=== PATIENT | male | born 1950 | race Caucasian/White ===

== ENCOUNTER 2018-08-27 12:30 | Inpatient (IN) | payer OTHER ==
[~2018-08-27] VITALS: Ht 188 cm; Wt 140.6 kg
[~2018-08-27 12:30] MED LIST: FURO40TA4 PO; POTA10TA12 PO; TAMS0.4C97 PO
[2018-08-27 13:44] LABS: BASO % 0 % (0-3); EOS # 0.1 x10^3/uL (0.0-0.7); EOS % 1 % (0-3); HEMATOCRIT 39.2 % (39.0-53.0); HEMOGLOBIN 12.8 g/dL (13.0-17.5); LYMPH # 1.9 x10^3/uL (1.0-4.8); LYMPH % 16 % (24-48); MEAN CORPUSCULAR HEMOGLOBIN 30 pg (25-35); MEAN CORPUSCULAR HGB CONC 33 g/dL (31-37); MEAN CORPUSCULAR VOLUME 93 fL (79-100); MONO # 1.2 x10^3/uL (0.0-1.1); MONO % 10 % (0-9); NEUT # 8.4 x10^3uL (1.8-7.7); NEUT % 73 % (31-73); PLATELET COUNT 201 x10^3/uL (140-400); RED BLOOD COUNT 4.22 x10^6/uL (4.30-5.70); RED CELL DISTRIBUTION WIDTH 13.6 % (11.5-14.5); WHITE BLOOD COUNT 11.5 x10^3/uL (4.0-11.0)
[2018-08-27] MEDS ORDERED: CALCIUM CARBONATE 500 MG TAB.CHEW PO PRN (13:45)
[2018-08-27] MEDS ORDERED: ZOLPIDEM 5 MG TABLET. PO PRN (13:45)
[2018-08-27] MEDS ORDERED: KETOROLAC 15 MG/ML VIAL. IV PRN (13:45)
[2018-08-27] MEDS ORDERED: ACETAMINOPHEN 325 MG TABLET. PO PRN (13:45)
[2018-08-27] MEDS ORDERED: MORPHINE SULFATE 2 MG/ML VIAL. IV PRN (13:45)
[2018-08-27] MEDS ORDERED: PROCHLORPERAZINE 10 MG/2 ML VIAL. IV PRN (13:45)
[2018-08-27] MEDS ORDERED: MAGNESIUM HYDROXIDE 2,400 MG/30 ML ORAL.SUSP. PO PRN (13:45)
[2018-08-27] MEDS ORDERED: oxyCODONE IR 5 MG TABLET PO PRN (13:45)
[2018-08-27] MEDS ORDERED: ONDANSETRON PF 4 MG/2 ML VIAL. IV PRN (13:45)
[2018-08-27] MEDS ORDERED: POTASSIUM CHLORIDE 10 MEQ TABLET.ER. PO PRN (13:45)
[2018-08-27] MEDS ORDERED: FUROSEMIDE 40 MG TABLET. PO PRN (13:45)
[2018-08-27] MEDS ORDERED: MAG HYDROX/ALUMINUM HYD/SIMETH 30 ML ORAL.SUSP PO PRN (13:45)
[2018-08-27] MEDS ORDERED: BISACODYL 10 MG SUPP.RECT. PR PRN (13:45)
--- NOTE | 2018-08-27 13:45 | RAD ---
FOOT BILAT 3V History: infected wound since April. Right foot Joint spaces are intact as is alignment. No evidence of aggressive bone destruction. No evidence of acute fracture. Calcaneal enthesophytes are noted. There is severe dorsal soft tissue swelling. Mild bone hypertrophy adjacent to the tuberosity of the proximal fifth metatarsal. Left foot Mild degenerative changes are seen. There is a small amount of bone are calcified density medial to the middle phalanx of the third phalanx, could be hypertrophic or due to old injury. There is some bone hypertrophy at the proximal fifth metatarsal tuberosity. Severe soft tissue swelling at the dorsal aspect of the left foot. Calcaneal enthesophytes are noted. IMPRESSION: Severe soft tissue swelling at the dorsal feet, nonspecific but could be due to cellulitis, abscess or hemorrhage. Electronically signed by: Clay Ramirez MD (08/27/2018 1:43 PM) [facility]
[2018-08-27 13:52] LABS: PROTHROMBIN TIME PATIENT 14.6 SEC (11.7-14.0)
[2018-08-27 13:55] LABS: BILIRUBIN,URINE SMALL (NEG); CLARITY,URINE CLEAR; COLOR,URINE AMBER; NITRITE,URINE NEGATIVE (NEG); PH,URINE 5.5; PROTEIN,URINE NEGATIVE (NEG-TRACE); UROBILINOGEN,URINE 0.2 mg/dL (0.2 mg/dL)
[2018-08-27] MEDS ORDERED: PROCHLORPERAZINE 25 MG SUPP.RECT. PR PRN (14:00)
--- NOTE | 2018-08-27 14:02 | PHYS DOC ---
Past Medical History Past Medical History: Other Additional Past Medical Histor: chronic BLE swelling, chronic back pain Past Surgical History: Other Additional Past Surgical Histo: left great toenail removed Additional Information: 2 ppd Alcohol Use: None Drug Use: None Adult General Chief Complaint Chief Complaint: Foot problem [facility] HPI Patient is a 68 year old male who presents with problem. Patient has had diagnosis of lymphedema in bilateral lower extremities and had bilateral feet infection since April 2018. Patient was seen at wound care clinic for the last 2 weeks and sent from wound care today because of pus drainage of fluid and increasing erythema and edema with concern for cellulitis or abscess. Patient does not have history of diabetes and denies fever and chills, new focal neuro deficit, shortness of breath. Patient has had history of chronic back spasm without new changes. Review of Systems Review of Systems Constitutional: Denies fever or chills [] Eyes: Denies change in visual acuity, redness, or eye pain [] HENT: Denies nasal congestion or sore throat [] Respiratory: Denies cough or shortness of breath [] Cardiovascular: No additional information not addressed in HPI [] GI: Denies abdominal pain, nausea, vomiting, bloody stools or diarrhea [] : Denies dysuria or hematuria [] Musculoskeletal: Reports back pain, joint pain [] Integument: Denies rash, reports skin lesions [] Neurologic: Denies headache, focal weakness or sensory changes [] Endocrine: Denies polyuria or polydipsia [] All other systems were reviewed and found to be within normal limits, except as documented in this note. Current Medications Current Medications Allergies Allergies Allergies Coded Allergies Type Severity Reaction Last Updated Verified No Known Drug Allergies 04/17/18 No Physical Exam Physical Exam Constitutional: Well developed, well nourished, mild distress, non-toxic appearance. [] HENT: Normocephalic, atraumatic Eyes: PERRLA, EOMI, conjunctiva normal, no discharge. [] Neck: Normal range of motion, no tenderness, supple, no stridor. [] Cardiovascular:Heart rate regular rhythm, no murmur [] Lungs & Thorax: Bilateral breath sounds clear to auscultation [] Skin: Warm, dry. Back: No tenderness, no CVA tenderness. [] Extremities: Bilateral lower extremity 4+ edema, bilateral foot erythema more in left side with mild yellow discharge painful range of motion, no sign of abscess Neurologic: Alert and oriented X 3, no focal deficits noted. [] Psychologic: Affect normal, judgement normal, mood normal. [] Current Patient Data Vital Signs Vital Signs Date Time Temp Pulse Resp B/P (MAP) Pulse Ox O2 Delivery O2 Flow Rate FiO2 08/27/18 13:00 77 16 141/48 (79) 98 Room Air 08/27/18 12:46 98.4 98.4 Lab Values Laboratory Tests Test 08/27/18 13:10 08/27/18 13:20 Urine Color Chelsie Urine Clarity Clear Urine pH 5.5 Urine Specific [place] 1.025 Urine Protein Negative mg/dL (NEG-TRACE) Urine Glucose (UA) Negative mg/dL (NEG) Urine Ketones (Stick) Trace mg/dL (NEG) Urine Blood Negative (NEG) Urine Nitrite Negative (NEG) Urine Bilirubin Small (NEG) Urine Urobilinogen Dipstick 0.2 mg/dL (0.2 mg/dL) Urine Leukocyte Esterase Negative (NEG) Urine RBC Rare /HPF (0-2) Urine WBC Occ /HPF (0-4) Urine Squamous Epithelial Cells Occ /LPF Urine Bacteria 0 /HPF (0-FEW) Urine Mucus Mod /LPF White Blood Count 11.5 x10^3/uL (4.0-11.0) H Red Blood Count 4.22 x10^6/uL (4.30-5.70) L Hemoglobin 12.8 g/dL (13.0-17.5) L Hematocrit 39.2 % (39.0-53.0) Mean Corpuscular Volume 93 fL (79-100) Mean Corpuscular Hemoglobin 30 pg (25-35) Mean Corpuscular Hemoglobin Concent 33 g/dL (31-37) Red Cell Distribution Width 13.6 % (11.5-14.5) Platelet Count 201 x10^3/uL (140-400) Neutrophils (%) (Auto) 73 % (31-73) Lymphocytes (%) (Auto) 16 % (24-48) L Monocytes (%) (Auto) 10 % (0-9) H Eosinophils (%) (Auto) 1 % (0-3) Basophils (%) (Auto) 0 % (0-3) Neutrophils # (Auto) 8.4 x10^3uL (1.8-7.7) H Lymphocytes # (Auto) 1.9 x10^3/uL (1.0-4.8) Monocytes # (Auto) 1.2 x10^3/uL (0.0-1.1) H Eosinophils # (Auto) 0.1 x10^3/uL (0.0-0.7) Basophils # (Auto) 0.0 x10^3/uL (0.0-0.2) Erythrocyte Sedimentation Rate 67 (0-15) H Prothrombin Time 14.6 SEC (11.7-14.0) H Prothrombin Time INR 1.2 (0.8-1.1) H PTT 30 SEC (24-38) Lactic Acid Level 1.2 mmol/L (0.4-2.0) Laboratory Tests 08/27/18 13:20 EKG EKG [] Radiology/Procedures Radiology/Procedures [facility] [address] [place] [address] IMAGING REPORT Signed PATIENT: TAYLOR ACOSTA ACCOUNT: [id number] : 1950 LOCATION: ER AGE: 68 SEX: M EXAM STATUS: REG ER ORD. PHYSICIAN: XIMENA TRIVEDI MD REASON: infected wound since April PROCEDURE: FOOT BILAT 3V FOOT BILAT 3V History: infected wound since April. Right foot Joint spaces are intact as is alignment. No evidence of aggressive bone destruction. No evidence of acute fracture. Calcaneal enthesophytes are noted. There is severe dorsal soft tissue swelling. Mild bone hypertrophy adjacent to the tuberosity of the proximal fifth metatarsal. Left foot Mild degenerative changes are seen. There is a small amount of bone are calcified density medial to the middle phalanx of the third phalanx, could be hypertrophic or due to old injury. There is some bone hypertrophy at the proximal fifth metatarsal tuberosity. Severe soft tissue swelling at the dorsal aspect of the left foot. Calcaneal enthesophytes are noted. IMPRESSION: Severe soft tissue swelling at the dorsal feet, nonspecific but could be due to cellulitis, abscess or hemorrhage. Electronically signed by: Clay Ramirez MD (08/27/2018 1:43 PM) [facility] DICTATED and SIGNED BY: CLAY RAMIREZ MD DATE: 08/27/18 1342 Course & Med Decision Making Course & Med Decision Making Pertinent Labs and Imaging studies reviewed. (See chart for details) Evaluation of patient in ER showed 68-year-old male patient with history of chronic lymphedema and bilateral feet erythema sent from wound clinic with worsening of bilateral foot cellulitis. Patient was afebrile and did not have hypotension or tachycardia. Patient had bilateral feet cellulitis. Patient requiring admission for further evaluation and treatment. Discussed with Dr. Rogers who is in agreement with admission. Discussed findings and plan with patient and family, who acknowledge understanding and agreement. Dragon Disclaimer Dragon Disclaimer This electronic medical record was generated, in whole or in part, using a voice recognition dictation system. Departure Departure Impression: Primary Impression: Bilateral lower leg cellulitis Additional Impression: Lymphedema of extremity Disposition: ADMITTED INPATIENT (at 1334) Admitting Physician: Luly Rogers (accepted admission at 1333) Condition: STABLE Referrals: CICI SAENZ MD (PCP) Problem Qualifiers XIMENA TRIVEDI MD Aug 27, 2018 14:01
--- NOTE | 2018-08-27 14:11 | PDOC1 ---
History and Physical Date of Admission Date of Admission DATE: 08/27/18 TIME: 14:06 Identification/Chief Complaint Chief Complaint leg wounds Source Source: Caregiver, Chart review, Patient History of Present Illness History of Present Illness 68, white male, chronic lymphedema, no diabetes but has signif neuropathy. Home meds including Lasix, KCl and Flomax and pain medicine. Follows with wound care for the past 2 weeks. History of leg wounds in April. Worsening edema. Weeping, red, some bloody drainage? NOfevers at home, HAs a wheel chair with seat, Cant get comfortable at ER PCP Dr. Blankenship. Labs are still pending. Needing IV antibiotics wound care and ID on board. X-rays show severe swelling and cellulitis but could not rule out hemorrhage or abscess. Labs are still pending including a sedimentation rate Past Medical History Cardiovascular: No pertinent hx Pulmonary: No pertinent hx GI: Constipation Heme/Onc: No pertinent hx Hepatobiliary: No pertinent hx Psych: No pertinent hx Musculoskeletal: low back pain Rheumatologic: No pertinent hx Infectious disease: No pertinent hx Renal/: No pertinent hx Endocrine: No pertinent hx Past Surgical History Past Surgical History: No pertinent history Family History Family History: High Cholestrol, Hypertension Social History Smoke: No ALCOHOL: rare Drugs: None Current Problem List Problem List Problems Medical Problems: (1) Bilateral lower leg cellulitis Status: Acute (2) Lymphedema of extremity Status: Acute Current Medications Current Medications Current Medications Ondansetron HCl (Zofran) 4 mg PRN Q6HRS PRN IV NAUSEA/VOMITING; Start 08/27/18 at 13:45 Prochlorperazine Edisylate (Compazine) 10 mg PRN Q6HRS PRN IV NAUSEA/VOMITING (2nd Choice); Start 08/27/18 at 13:45 Prochlorperazine (Compazine) 25 mg PRN Q12HR PRN [place] NAUSEA/VOMITING; Start 08/27/18 at 13:45; Status UNV Al Hydroxide/Mg Hydroxide (Mylanta Plus Xs) 30 ml PRN Q3HRS PRN PO HEARTBURN / GAS; Start 08/27/18 at 13:45 Calcium Carbonate/ Glycine (Tums) 500 mg PRN Q3HRS PRN PO UPSET STOMACH; Start 08/27/18 at 13:45 Zolpidem Tartrate (Ambien) 5 mg PRN QHS PRN PO INSOMNIA, MAY REPEAT IN 1HR; Start 08/27/18 at 13:45 Oxycodone HCl (Roxicodone) 5 mg PRN Q3HRS PRN PO BREAKTHROUGH PAIN; Start 08/27/18 at 13:45 Morphine Sulfate (Morphine Sulfate) 2 mg PRN Q2HR PRN IV PAIN; Start 08/27/18 at 13:45 Ketorolac Tromethamine (Toradol 15mg Vial) 15 mg PRN Q6HRS PRN IV PAIN; Start 08/27/18 at 13:45; Stop 09/01/18 at 13:44; Status UNV Acetaminophen (Tylenol) 650 mg PRN Q6HRS PRN PO Headaches, Temp > 101.5F; Start 08/27/18 at 13:45 Magnesium Hydroxide (Milk Of Magnesia) 2,400 mg PRN Q12HR PRN PO CONSTIPATION; Start 08/27/18 at 13:45 Bisacodyl (Dulcolax Supp) 10 mg PRN DAILY PRN [place] CONSTIPATION; Start 08/27/18 at 13:45 Furosemide (Lasix) 40 mg PRN DAILY PRN PO SWELLING; Start 08/27/18 at 13:45 Potassium Chloride (Klor-Con) 10 meq DAILY PRN PO take with furosemide; Start 08/27/18 at 13:45; Status UNV Tamsulosin HCl (Flomax) 0.4 mg QHS PO ; Start 08/27/18 at 21:00; Status UNV Non-Formulary Medication (Info (No Known Medications Prior To Admisstion)) 1 each DAILY MC ; Start 08/28/18 at 09:00; Status UNV Active Scripts Active Potassium Chloride 10 Meq Tab.sr.24h 10 Meq PO DAILY PRN 30 Days Furosemide 40 Mg Tablet 1 Tab PO DAILY PRN 30 Days Flomax (Tamsulosin Hcl) 0.4 Mg Cap.er.24h 0.4 Mg PO QHS 30 Days Reported No Known Medications Prior To Admisstion (Info) Each 1 Each MC DAILY Allergies Allergies: Coded Allergies: No Known Drug Allergies (Unverified , 04/17/18) ROS Review of System Legs hurt otherwise rest of ROS 14 point negative Physical Exam General: Alert, Oriented X3, Cooperative, Other (cannot find a comfortable position at the ER otherwise not in acute respiratory distress) HEENT: Atraumatic, PERRLA Lungs: Clear to auscultation, Normal air movement Heart: S1S2, RRR, no thrills, no rubs, no gallops, no murmurs Cardiovascular: S1, S2 Abdomen: Normal bowel sounds, Soft, No tenderness, No hepatosplenomegaly, No masses Male Genitals Exam: normal genitalia, normal prostate Rectal Exam: not examined Skin: Other (severe lower extremity tight pitting ,, red swollen, no open lesions though) Neuro: Normal gait, Normal speech, Strength at 5/5 X4 ext, Normal tone, Sensation intact, Cranial nerves 3-12 NL, Reflexes 2+ Psych/Mental Status: Mental status NL Vitals Vitals Vital Signs Date Time Temp Pulse Resp B/P (MAP) Pulse Ox O2 Delivery O2 Flow Rate FiO2 08/27/18 12:46 98.4 75 20 141/48 (79) 96 Room Air 98.4 Labs Labs Laboratory Tests Test 08/27/18 13:20 White Blood Count 11.5 x10^3/uL (4.0-11.0) Red Blood Count 4.22 x10^6/uL (4.30-5.70) Hemoglobin 12.8 g/dL (13.0-17.5) Hematocrit 39.2 % (39.0-53.0) Mean Corpuscular Volume 93 fL (79-100) Mean Corpuscular Hemoglobin 30 pg (25-35) Mean Corpuscular Hemoglobin Concent 33 g/dL (31-37) Red Cell Distribution Width 13.6 % (11.5-14.5) Platelet Count 201 x10^3/uL (140-400) Neutrophils (%) (Auto) 73 % (31-73) Lymphocytes (%) (Auto) 16 % (24-48) Monocytes (%) (Auto) 10 % (0-9) Eosinophils (%) (Auto) 1 % (0-3) Basophils (%) (Auto) 0 % (0-3) Neutrophils # (Auto) 8.4 x10^3uL (1.8-7.7) Lymphocytes # (Auto) 1.9 x10^3/uL (1.0-4.8) Monocytes # (Auto) 1.2 x10^3/uL (0.0-1.1) Eosinophils # (Auto) 0.1 x10^3/uL (0.0-0.7) Basophils # (Auto) 0.0 x10^3/uL (0.0-0.2) Prothrombin Time 14.6 SEC (11.7-14.0) Prothromb Time International Ratio 1.2 (0.8-1.1) Activated Partial Thromboplast Time 30 SEC (24-38) Lactic Acid Level 1.2 mmol/L (0.4-2.0) Laboratory Tests Test 08/27/18 13:20 White Blood Count 11.5 x10^3/uL (4.0-11.0) Red Blood Count 4.22 x10^6/uL (4.30-5.70) Hemoglobin 12.8 g/dL (13.0-17.5) Hematocrit 39.2 % (39.0-53.0) Mean Corpuscular Volume 93 fL (79-100) Mean Corpuscular Hemoglobin 30 pg (25-35) Mean Corpuscular Hemoglobin Concent 33 g/dL (31-37) Red Cell Distribution Width 13.6 % (11.5-14.5) Platelet Count 201 x10^3/uL (140-400) Neutrophils (%) (Auto) 73 % (31-73) Lymphocytes (%) (Auto) 16 % (24-48) Monocytes (%) (Auto) 10 % (0-9) Eosinophils (%) (Auto) 1 % (0-3) Basophils (%) (Auto) 0 % (0-3) Neutrophils # (Auto) 8.4 x10^3uL (1.8-7.7) Lymphocytes # (Auto) 1.9 x10^3/uL (1.0-4.8) Monocytes # (Auto) 1.2 x10^3/uL (0.0-1.1) Eosinophils # (Auto) 0.1 x10^3/uL (0.0-0.7) Basophils # (Auto) 0.0 x10^3/uL (0.0-0.2) Prothrombin Time 14.6 SEC (11.7-14.0) Prothromb Time International Ratio 1.2 (0.8-1.1) Activated Partial Thromboplast Time 30 SEC (24-38) Lactic Acid Level 1.2 mmol/L (0.4-2.0) VTE Prophylaxis Ordered VTE Prophylaxis Devices: Yes VTE Pharmacological Prophylaxi: Yes Assessment/Plan Assessment/Plan Severe bilateral lower extremity edema and wounds - tight edema, no open lesions-follows with wound care- Severe cellulitis both legs-rule out abscess hemorrhage or any drainable lesion 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
[2018-08-27] MEDS ORDERED: PIP/TAZO PER PHARMACY MC PRN (14:15)
[2018-08-27] MEDS ORDERED: VANCOMYCIN PER PHARMACY MC PRN (14:15)
[2018-08-27] MEDS ORDERED: fentaNYL PF VIAL 100 MCG/2 ML VIAL IV PRN (14:15)
[2018-08-27] MEDS ORDERED: oxyCODONE/APAP 10/325 1 TAB TABLET PO PRN (14:15)
[2018-08-27 14:20] LABS: BACTERIA,URINE 0 /HPF (0-FEW); RBC,URINE RARE /HPF (0-2); SQUAMOUS EPITHELIAL CELL,UR OCC /LPF; WBC,URINE OCC /HPF (0-4)
[2018-08-27 14:28] LABS: CALCIUM 8.3 mg/dL (8.5-10.1); CREATININE 1.2 mg/dL (0.7-1.3); GFR 60.4; POTASSIUM 3.9 mmol/L (3.5-5.1)
[2018-08-27 14:34] LABS: ALBUMIN 3.3 g/dL (3.4-5.0); ALBUMIN/GLOBULIN RATIO 0.9 (1.0-1.7); TOTAL BILIRUBIN 0.5 mg/dL (0.2-1.0); TOTAL PROTEIN 7.1 g/dL (6.4-8.2)
[2018-08-27] MEDS ORDERED: MORPHINE SULFATE 4 MG/ML VIAL. IV ONE (15:00)
[2018-08-27] MEDS ORDERED: VANCOMYCIN 2 GM in IV NORMAL SALINE 500ML BAG 500 ML IV ONE (15:00)
[2018-08-27] MEDS ORDERED: fentaNYL PF VIAL 100 MCG/2 ML VIAL IV ONE (15:45)
[2018-08-27 16:12] VITALS: BP 128/48
[2018-08-27] MEDS: FUROSEMIDE 40 MG/4 ML VIAL. IVP SCH (17:07)
--- NOTE | 2018-08-27 17:42 | NUR ---
Pharmacy Vancomycin Dosing Note S:Consulted to monitor and dose vancomycin started 08/27/18. O:TAYLOR ACOSTA is a 68 year old M with Cellulitis . Height: 6 feet, 2 inches Weight: 140.586054 kg [place] Body Weight: 82.20 Adjusted Body Weight: 105.32 Dosing Weight: Adjusted Other Antibiotics: ZOSYN LABS: Last BUN: 24 Last Creatinine: 1.2 Creatinine Clearance: 89 mL/min Last WBC: 11.5 Last Procalcitonin: Tmax (past 24 hours): 98.4 Microbiology: I/O: Drug Levels: Last level: on at Last dose given 08/27/18 at 1700 Vancomycin Dosing: Loading Dose: 2000 mg x1 Dosing Weight: Adjusted Target Trough: 10-20 A: Based on: WEIGHT AND RENAL FUNCTION, VANCOMYCIN 2GM IV BOLUS GIVEN, P: 1. Begin Vancomycin 2000 mg IV q12h IN AM 2. Follow up Trough level on 08/29/18 at 0430 3. Pharmacy will continue to monitor, follow and adjust therapy as needed. MELINA JAVED [facility], 08/27/18 6000
[2018-08-27 19:00] VITALS: BP 131/80
--- NOTE | 2018-08-27 19:57 | NUR ---
New admit from ED. Arrived on unit approximately 1600. Client was AOX4, VSS, acute bilateral pain in the lower extremities. Client was oriented to room, call light in reach, and asked to call when needed. Client laughed when told to call for assistance when needed. Client complained of back pain that was not relieved by morphine or any other medication. Will continue to monitor.
[2018-08-27] MEDS: PIPERACILLIN/TAZOBACTAM 3.375 GM in IV NORMAL SALINE 50ML 50 ML IV SCH (20:10)
[2018-08-27] MEDS: BACLOFEN 10 MG TABLET. PO SCH (21:24)
[2018-08-27] MEDS: TAMSULOSIN 0.4 MG CAP.ER.24H. PO SCH (21:24)
[2018-08-27 23:00] VITALS: BP 126/76
[2018-08-28] MEDS: oxyCODONE/APAP 5/325 1 TAB TABLET PO PRN ×2 (00:11→08:28)
[2018-08-28] MEDS: PIPERACILLIN/TAZOBACTAM 3.375 GM in IV NORMAL SALINE 50ML 50 ML IV SCH ×5 (00:11→23:04)
[2018-08-28 03:00] VITALS: BP 116/60
[2018-08-28] MEDS ORDERED: VANCOMYCIN 2 GM in IV NORMAL SALINE 500ML BAG 500 ML IV SCH (05:00)
[2018-08-28 07:00] VITALS: BP 119/65
--- NOTE | 2018-08-28 07:29 | PDOC ---
Infectious Disease Note Vital Sign Vital Signs Vital Signs Date Time Temp Pulse Resp B/P (MAP) Pulse Ox O2 Delivery O2 Flow Rate FiO2 08/28/18 03:00 97.9 81 16 116/60 (78) 93 Room Air 97.9 Labs Lab Laboratory Tests Test 08/27/18 13:10 08/27/18 13:20 08/27/18 14:10 Urine Color Chelsie Urine Clarity Clear Urine pH 5.5 Urine Specific [place] 1.025 Urine Protein Negative mg/dL (NEG-TRACE) Urine Glucose (UA) Negative mg/dL (NEG) Urine Ketones (Stick) Trace mg/dL (NEG) Urine Blood Negative (NEG) Urine Nitrite Negative (NEG) Urine Bilirubin Small (NEG) Urine Urobilinogen Dipstick 0.2 mg/dL (0.2 mg/dL) Urine Leukocyte Esterase Negative (NEG) Urine RBC Rare /HPF (0-2) Urine WBC Occ /HPF (0-4) Urine Squamous Epithelial Cells Occ /LPF Urine Bacteria 0 /HPF (0-FEW) Urine Mucus Mod /LPF White Blood Count 11.5 x10^3/uL (4.0-11.0) Red Blood Count 4.22 x10^6/uL (4.30-5.70) Hemoglobin 12.8 g/dL (13.0-17.5) Hematocrit 39.2 % (39.0-53.0) Mean Corpuscular Volume 93 fL (79-100) Mean Corpuscular Hemoglobin 30 pg (25-35) Mean Corpuscular Hemoglobin Concent 33 g/dL (31-37) Red Cell Distribution Width 13.6 % (11.5-14.5) Platelet Count 201 x10^3/uL (140-400) Neutrophils (%) (Auto) 73 % (31-73) Lymphocytes (%) (Auto) 16 % (24-48) Monocytes (%) (Auto) 10 % (0-9) Eosinophils (%) (Auto) 1 % (0-3) Basophils (%) (Auto) 0 % (0-3) Neutrophils # (Auto) 8.4 x10^3uL (1.8-7.7) Lymphocytes # (Auto) 1.9 x10^3/uL (1.0-4.8) Monocytes # (Auto) 1.2 x10^3/uL (0.0-1.1) Eosinophils # (Auto) 0.1 x10^3/uL (0.0-0.7) Basophils # (Auto) 0.0 x10^3/uL (0.0-0.2) Erythrocyte Sedimentation Rate 67 (0-15) Prothrombin Time 14.6 SEC (11.7-14.0) Prothromb Time International Ratio 1.2 (0.8-1.1) Activated Partial Thromboplast Time 30 SEC (24-38) Lactic Acid Level 1.2 mmol/L (0.4-2.0) Sodium Level 139 mmol/L (136-145) Potassium Level 3.9 mmol/L (3.5-5.1) Chloride Level 103 mmol/L (98-107) Carbon Dioxide Level 25 mmol/L (21-32) Anion Gap 11 (6-14) Blood Urea Nitrogen 21 mg/dL (8-26) Creatinine 1.2 mg/dL (0.7-1.3) Estimated GFR (Cockcroft-Gault) 60.4 BUN/Creatinine Ratio 18 (6-20) Glucose Level 100 mg/dL (70-99) Calcium Level 8.3 mg/dL (8.5-10.1) Total Bilirubin 0.5 mg/dL (0.2-1.0) Aspartate Amino Transf (AST/SGOT) 15 U/L (15-37) Alanine Aminotransferase (ALT/SGPT) 20 U/L (16-63) Alkaline Phosphatase 58 U/L (46-116) Total Protein 7.1 g/dL (6.4-8.2) Albumin 3.3 g/dL (3.4-5.0) Albumin/Globulin Ratio 0.9 (1.0-1.7) Objective Assessment Leukocytosis Lymphedema LE cellulitis Tinea Cat exposure - "lays on his feet" Denies known bites/scratches or licking Plan Plan of Care D/c Vanc Add Zyvox/fluconazole Cont Zosyn F/u labs and cults Elevation Back pain per primary D/w family D/w nursing Thank you # [id number] TARIK CHILDERS MD Aug 28, 2018 07:29
[2018-08-28] MEDS: BACLOFEN 10 MG TABLET. PO SCH ×3 (08:27→21:42)
[2018-08-28] MEDS: FUROSEMIDE 40 MG/4 ML VIAL. IVP SCH ×2 (08:28→14:38)
[2018-08-28] MEDS ORDERED: NON FORMULARY ITEM (Info (No Known Medications Prior To Admisstion) 1 EACH) MC SCH (09:00)
--- NOTE | 2018-08-28 10:08 | NUR ---
Dr. Cool notified of pt's inability to lay flat for CT bilat LE. CT notified of pt refusal.
[2018-08-28 11:00] VITALS: BP 122/68
[2018-08-28] MEDS: ASCORBIC ACID 500 MG TABLET PO SCH (11:12)
[2018-08-28] MEDS: FLUCONAZOLE 100 MG TABLET. PO SCH (11:13)
[2018-08-28] MEDS: MULTIVITAMIN with MINERAL TABLET. PO SCH (11:13)
[2018-08-28] MEDS: LINEZOLID 600 MG TABLET PO SCH ×2 (11:13→21:42)
--- NOTE | 2018-08-28 11:15 | NUR ---
wound care patient seen per wound care consult. see wound assessment. patient has bilateral feet redness, swelling, warmth and drainage from the left foot, the area was cleaned, measured and redressed with Aquacel Ag with abd pad, Kerlix and tape and the right foot was reddened with swelling, minimal drainage, dry and scaly, the foot was cleaned, measured and redressed with Xeroform gauze with abd pad, Kerlix and tape, recommendations of changing every day. patient unable to elevate feet d/t back pain. notified XENIA Odonnell about the POC and wound care will continue to f/u.
--- NOTE | 2018-08-28 11:32 | PDOC ---
PROGRESS NOTES Chief Complaint Chief Complaint CC: LE wounds since April in the setting of chronic lymphedema History of Present Illness History of Present Illness Pt seen and examined States he is refusing CT scan No new complaints Vitals Vitals Vital Signs Date Time Temp Pulse Resp B/P (MAP) Pulse Ox O2 Delivery O2 Flow Rate FiO2 08/28/18 10:42 Room Air 08/28/18 07:00 97.7 74 18 119/65 (83) 97 97.7 Physical Exam General: Alert, Oriented X3, Cooperative, No acute distress Heart: Regular rate, Normal S1, Normal S2, No murmurs Lungs: Clear Abdomen: Normal bowel sounds, Soft, No tenderness, No hepatosplenomegaly, No masses Skin: Other (severe lower extremity tight pitting edema, red swollen, no open lesions, draining ) Labs LABS Laboratory Tests Test 08/27/18 13:10 08/27/18 13:20 08/27/18 14:10 Urine Color Chelsie Urine Clarity Clear Urine pH 5.5 Urine Specific Pollock 1.025 Urine Protein Negative mg/dL (NEG-TRACE) Urine Glucose (UA) Negative mg/dL (NEG) Urine Ketones (Stick) Trace mg/dL (NEG) Urine Blood Negative (NEG) Urine Nitrite Negative (NEG) Urine Bilirubin Small (NEG) Urine Urobilinogen Dipstick 0.2 mg/dL (0.2 mg/dL) Urine Leukocyte Esterase Negative (NEG) Urine RBC Rare /HPF (0-2) Urine WBC Occ /HPF (0-4) Urine Squamous Epithelial Cells Occ /LPF Urine Bacteria 0 /HPF (0-FEW) Urine Mucus Mod /LPF White Blood Count 11.5 x10^3/uL (4.0-11.0) Red Blood Count 4.22 x10^6/uL (4.30-5.70) Hemoglobin 12.8 g/dL (13.0-17.5) Hematocrit 39.2 % (39.0-53.0) Mean Corpuscular Volume 93 fL (79-100) Mean Corpuscular Hemoglobin 30 pg (25-35) Mean Corpuscular Hemoglobin Concent 33 g/dL (31-37) Red Cell Distribution Width 13.6 % (11.5-14.5) Platelet Count 201 x10^3/uL (140-400) Neutrophils (%) (Auto) 73 % (31-73) Lymphocytes (%) (Auto) 16 % (24-48) Monocytes (%) (Auto) 10 % (0-9) Eosinophils (%) (Auto) 1 % (0-3) Basophils (%) (Auto) 0 % (0-3) Neutrophils # (Auto) 8.4 x10^3uL (1.8-7.7) Lymphocytes # (Auto) 1.9 x10^3/uL (1.0-4.8) Monocytes # (Auto) 1.2 x10^3/uL (0.0-1.1) Eosinophils # (Auto) 0.1 x10^3/uL (0.0-0.7) Basophils # (Auto) 0.0 x10^3/uL (0.0-0.2) Erythrocyte Sedimentation Rate 67 (0-15) Prothrombin Time 14.6 SEC (11.7-14.0) Prothromb Time International Ratio 1.2 (0.8-1.1) Activated Partial Thromboplast Time 30 SEC (24-38) Lactic Acid Level 1.2 mmol/L (0.4-2.0) Sodium Level 139 mmol/L (136-145) Potassium Level 3.9 mmol/L (3.5-5.1) Chloride Level 103 mmol/L (98-107) Carbon Dioxide Level 25 mmol/L (21-32) Anion Gap 11 (6-14) Blood Urea Nitrogen 21 mg/dL (8-26) Creatinine 1.2 mg/dL (0.7-1.3) Estimated GFR (Cockcroft-Gault) 60.4 BUN/Creatinine Ratio 18 (6-20) Glucose Level 100 mg/dL (70-99) Calcium Level 8.3 mg/dL (8.5-10.1) Total Bilirubin 0.5 mg/dL (0.2-1.0) Aspartate Amino Transf (AST/SGOT) 15 U/L (15-37) Alanine Aminotransferase (ALT/SGPT) 20 U/L (16-63) Alkaline Phosphatase 58 U/L (46-116) Total Protein 7.1 g/dL (6.4-8.2) Albumin 3.3 g/dL (3.4-5.0) Albumin/Globulin Ratio 0.9 (1.0-1.7) Review of Systems Review of Systems Denies F/C Denies CP or SOA Assessment and Plan Assessmemt and Plan Assessment: B/l LE cellulitis Chronic lymphedema of the LE extremities, draining wounds Neuropathy, Leukocytosis Tinea Plan: Consulted SW for SNU eval Pt states he is refusing to get a CT BNP and Echo ordered Local WC, elevate legs Lasix 40 BID Started on Zyvox/fluconazole, on Zosyn, d/c Vanc pharmacy dosing, appreciate ID recommendations Pain control Home Rx PT/OT ordered Full Code Problems Medical Problems: (1) Bilateral lower leg cellulitis Status: Acute (2) Lymphedema of extremity Status: Acute Comment Review of Relevant I have reviewed the following items otilio (where applicable) has been applied. Labs Laboratory Tests Test 08/27/18 13:10 08/27/18 13:20 08/27/18 14:10 Urine Color Chelsie Urine Clarity Clear Urine pH 5.5 Urine Specific Pollock 1.025 Urine Protein Negative mg/dL (NEG-TRACE) Urine Glucose (UA) Negative mg/dL (NEG) Urine Ketones (Stick) Trace mg/dL (NEG) Urine Blood Negative (NEG) Urine Nitrite Negative (NEG) Urine Bilirubin Small (NEG) Urine Urobilinogen Dipstick 0.2 mg/dL (0.2 mg/dL) Urine Leukocyte Esterase Negative (NEG) Urine RBC Rare /HPF (0-2) Urine WBC Occ /HPF (0-4) Urine Squamous Epithelial Cells Occ /LPF Urine Bacteria 0 /HPF (0-FEW) Urine Mucus Mod /LPF White Blood Count 11.5 x10^3/uL (4.0-11.0) Red Blood Count 4.22 x10^6/uL (4.30-5.70) Hemoglobin 12.8 g/dL (13.0-17.5) Hematocrit 39.2 % (39.0-53.0) Mean Corpuscular Volume 93 fL (79-100) Mean Corpuscular Hemoglobin 30 pg (25-35) Mean Corpuscular Hemoglobin Concent 33 g/dL (31-37) Red Cell Distribution Width 13.6 % (11.5-14.5) Platelet Count 201 x10^3/uL (140-400) Neutrophils (%) (Auto) 73 % (31-73) Lymphocytes (%) (Auto) 16 % (24-48) Monocytes (%) (Auto) 10 % (0-9) Eosinophils (%) (Auto) 1 % (0-3) Basophils (%) (Auto) 0 % (0-3) Neutrophils # (Auto) 8.4 x10^3uL (1.8-7.7) Lymphocytes # (Auto) 1.9 x10^3/uL (1.0-4.8) Monocytes # (Auto) 1.2 x10^3/uL (0.0-1.1) Eosinophils # (Auto) 0.1 x10^3/uL (0.0-0.7) Basophils # (Auto) 0.0 x10^3/uL (0.0-0.2) Erythrocyte Sedimentation Rate 67 (0-15) Prothrombin Time 14.6 SEC (11.7-14.0) Prothromb Time International Ratio 1.2 (0.8-1.1) Activated Partial Thromboplast Time 30 SEC (24-38) Lactic Acid Level 1.2 mmol/L (0.4-2.0) Sodium Level 139 mmol/L (136-145) Potassium Level 3.9 mmol/L (3.5-5.1) Chloride Level 103 mmol/L (98-107) Carbon Dioxide Level 25 mmol/L (21-32) Anion Gap 11 (6-14) Blood Urea Nitrogen 21 mg/dL (8-26) Creatinine 1.2 mg/dL (0.7-1.3) Estimated GFR (Cockcroft-Gault) 60.4 BUN/Creatinine Ratio 18 (6-20) Glucose Level 100 mg/dL (70-99) Calcium Level 8.3 mg/dL (8.5-10.1) Total Bilirubin 0.5 mg/dL (0.2-1.0) Aspartate Amino Transf (AST/SGOT) 15 U/L (15-37) Alanine Aminotransferase (ALT/SGPT) 20 U/L (16-63) Alkaline Phosphatase 58 U/L (46-116) Total Protein 7.1 g/dL (6.4-8.2) Albumin 3.3 g/dL (3.4-5.0) Albumin/Globulin Ratio 0.9 (1.0-1.7) Laboratory Tests Test 08/27/18 13:10 08/27/18 13:20 08/27/18 14:10 Urine Color Chelsie Urine Clarity Clear Urine pH 5.5 Urine Specific Pollock 1.025 Urine Protein Negative mg/dL (NEG-TRACE) Urine Glucose (UA) Negative mg/dL (NEG) Urine Ketones (Stick) Trace mg/dL (NEG) Urine Blood Negative (NEG) Urine Nitrite Negative (NEG) Urine Bilirubin Small (NEG) Urine Urobilinogen Dipstick 0.2 mg/dL (0.2 mg/dL) Urine Leukocyte Esterase Negative (NEG) Urine RBC Rare /HPF (0-2) Urine WBC Occ /HPF (0-4) Urine Squamous Epithelial Cells Occ /LPF Urine Bacteria 0 /HPF (0-FEW) Urine Mucus Mod /LPF White Blood Count 11.5 x10^3/uL (4.0-11.0) Red Blood Count 4.22 x10^6/uL (4.30-5.70) Hemoglobin 12.8 g/dL (13.0-17.5) Hematocrit 39.2 % (39.0-53.0) Mean Corpuscular Volume 93 fL (79-100) Mean Corpuscular Hemoglobin 30 pg (25-35) Mean Corpuscular Hemoglobin Concent 33 g/dL (31-37) Red Cell Distribution Width 13.6 % (11.5-14.5) Platelet Count 201 x10^3/uL (140-400) Neutrophils (%) (Auto) 73 % (31-73) Lymphocytes (%) (Auto) 16 % (24-48) Monocytes (%) (Auto) 10 % (0-9) Eosinophils (%) (Auto) 1 % (0-3) Basophils (%) (Auto) 0 % (0-3) Neutrophils # (Auto) 8.4 x10^3uL (1.8-7.7) Lymphocytes # (Auto) 1.9 x10^3/uL (1.0-4.8) Monocytes # (Auto) 1.2 x10^3/uL (0.0-1.1) Eosinophils # (Auto) 0.1 x10^3/uL (0.0-0.7) Basophils # (Auto) 0.0 x10^3/uL (0.0-0.2) Erythrocyte Sedimentation Rate 67 (0-15) Prothrombin Time 14.6 SEC (11.7-14.0) Prothromb Time International Ratio 1.2 (0.8-1.1) Activated Partial Thromboplast Time 30 SEC (24-38) Lactic Acid Level 1.2 mmol/L (0.4-2.0) Sodium Level 139 mmol/L (136-145) Potassium Level 3.9 mmol/L (3.5-5.1) Chloride Level 103 mmol/L (98-107) Carbon Dioxide Level 25 mmol/L (21-32) Anion Gap 11 (6-14) Blood Urea Nitrogen 21 mg/dL (8-26) Creatinine 1.2 mg/dL (0.7-1.3) Estimated GFR (Cockcroft-Gault) 60.4 BUN/Creatinine Ratio 18 (6-20) Glucose Level 100 mg/dL (70-99) Calcium Level 8.3 mg/dL (8.5-10.1) Total Bilirubin 0.5 mg/dL (0.2-1.0) Aspartate Amino Transf (AST/SGOT) 15 U/L (15-37) Alanine Aminotransferase (ALT/SGPT) 20 U/L (16-63) Alkaline Phosphatase 58 U/L (46-116) Total Protein 7.1 g/dL (6.4-8.2) Albumin 3.3 g/dL (3.4-5.0) Albumin/Globulin Ratio 0.9 (1.0-1.7) Medications Current Medications Ondansetron HCl (Zofran) 4 mg PRN Q6HRS PRN IV NAUSEA/VOMITING; Start 08/27/18 at 13:45 Prochlorperazine Edisylate (Compazine) 10 mg PRN Q6HRS PRN IV NAUSEA/VOMITING (2nd Choice); Start 08/27/18 at 13:45 Prochlorperazine (Compazine) 25 mg PRN Q12HR PRN NM NAUSEA/VOMITING; Start 08/27/18 at 14:00 Al Hydroxide/Mg Hydroxide (Mylanta Plus Xs) 30 ml PRN Q3HRS PRN PO HEARTBURN / GAS; Start 08/27/18 at 13:45 Calcium Carbonate/ Glycine (Tums) 500 mg PRN Q3HRS PRN PO UPSET STOMACH; Start 08/27/18 at 13:45 Zolpidem Tartrate (Ambien) 5 mg PRN QHS PRN PO INSOMNIA, MAY REPEAT IN 1HR Last administered on 08/28/18at 00:11; Start 08/27/18 at 13:45 Oxycodone HCl (Roxicodone) 5 mg PRN Q3HRS PRN PO BREAKTHROUGH PAIN; Start 08/27/18 at 13:45 Morphine Sulfate (Morphine Sulfate) 2 mg PRN Q2HR PRN IV PAIN Last administered on 08/27/18at 17:06; Start 08/27/18 at 13:45 Ketorolac Tromethamine (Toradol 15mg Vial) 15 mg PRN Q6HRS PRN IV MODERATE PAIN; Start 08/27/18 at 13:45; Stop 09/01/18 at 13:44 Acetaminophen (Tylenol) 650 mg PRN Q6HRS PRN PO Headaches, Temp > 101.5F; Start 08/27/18 at 13:45 Magnesium Hydroxide (Milk Of Magnesia) 2,400 mg PRN Q12HR PRN PO CONSTIPATION; Start 08/27/18 at 13:45 Bisacodyl (Dulcolax Supp) 10 mg PRN DAILY PRN NM CONSTIPATION; Start 08/27/18 at 13:45 Furosemide (Lasix) 40 mg PRN DAILY PRN PO SWELLING; Start 08/27/18 at 13:45; Stop 08/27/18 at 14:06; Status DC Potassium Chloride (Klor-Con) 10 meq PRN DAILY PRN PO take with furosemide; Start 08/27/18 at 13:45 Tamsulosin HCl (Flomax) 0.4 mg QHS PO Last administered on 08/27/18at 21:24; Start 08/27/18 at 21:00 Non-Formulary Medication (Info (No Known Medications Prior To Admisstion)) 1 each DAILY MC ; Start 08/28/18 at 09:00; Status UNV Cefazolin Sodium 50 ml @ 100 mls/hr 1X ONCE IV Last administered on 08/27/18at 14:18; Start 08/27/18 at 14:15; Stop 08/27/18 at 14:44; Status DC Furosemide (Lasix) 40 mg [id number] IVP Last administered on 08/28/18at 08:28; Start 08/27/18 at 14:00 Vancomycin HCl (Vanco Per Pharmacy) 1 each PRN DAILY PRN MC SEE COMMENTS Last administered on 08/27/18at 17:40; Start 08/27/18 at 14:15; Stop 08/28/18 at 08:40; Status DC Piperacillin Sod/ Tazobactam Sod (Zosyn Per Pharmacy) 1 each PRN DAILY PRN MC SEE COMMENTS; Start 08/27/18 at 14:15 Baclofen (Lioresal) 20 mg TID PO Last administered on 08/28/18at 08:27; Start 08/27/18 at 21:00 Fentanyl Citrate (Fentanyl 2ml Vial) 50 mcg PRN Q2HR PRN IV PAIN; Start 08/27/18 at 14:15 Oxycodone/ Acetaminophen (Percocet 5/325) 1 tab PRN Q4HRS PRN PO PAIN Last administered on 08/28/18at 08:28; Start 08/27/18 at 14:15 Oxycodone/ Acetaminophen (Percocet 10/325) 1 tab PRN Q4HRS PRN PO pain; Start 08/27/18 at 14:15 Piperacillin Sod/ Tazobactam Sod 3.375 gm/Sodium Chloride 50 ml @ 100 mls/hr Q6H IV Last administered on 08/28/18at 11:12; Start 08/27/18 at 17:00 Vancomycin HCl 2 gm/Sodium Chloride 500 ml @ 250 mls/hr 1X ONCE IV Last administered on 08/27/18at 17:06; Start 08/27/18 at 15:00; Stop 08/27/18 at 16: 59; Status DC Lorazepam (Ativan) 2 mg 1X ONCE IV Last administered on 08/27/18at 15:05; Start 08/27/18 at 15:00; Stop 08/27/18 at 15:01; Status DC Morphine Sulfate (Morphine Sulfate) 4 mg 1X ONCE IV Last administered on 08/27/18at 15:05; Start 08/27/18 at 15:00; Stop 08/27/18 at 15:01; Status DC Lorazepam (Ativan) 4 mg 1X ONCE IV ; Start 08/27/18 at 15:45; Stop 08/27/18 at 15:46; Status DC Fentanyl Citrate (Fentanyl 2ml Vial) 75 mcg 1X ONCE IV ; Start 08/27/18 at 15:45; Stop 08/27/18 at 15:46; Status DC Vancomycin HCl 2 gm/Sodium Chloride 500 ml @ 250 mls/hr Q12H IV Last administered on 08/28/18at 05:00; Start 08/28/18 at 05:00; Stop 08/28/18 at 08:40; Status DC Vancomycin HCl (Vancomycin Trough Level) 1 each 1X ONCE MC ; Start 08/29/18 at 04:30; Stop 08/29/18 at 04:31; Status Cancel Fluconazole (Diflucan) 200 mg DAILY PO Last administered on 08/28/18at 11:13; Start 08/28/18 at 09:00 Linezolid (Zyvox) 600 mg BID PO Last administered on 08/28/18 11:13; Start 08/28/18 at 09:00 Ascorbic Acid (Vitamin C) 500 mg DAILY PO Last administered on 08/28/18at 11:12; Start 08/28/18 at 11:30 Multivitamins (Thera M Plus) 1 tab DAILY PO Last administered on 08/28/18at 11:13; Start 08/28/18 at 11:30 Active Scripts Active Potassium Chloride 10 Meq Tab.sr.24h 10 Meq PO DAILY PRN 30 Days Furosemide 40 Mg Tablet 1 Tab PO DAILY PRN 30 Days Flomax (Tamsulosin Hcl) 0.4 Mg Cap.er.24h 0.4 Mg PO QHS 30 Days Reported No Known Medications Prior To Admisstion (Info) Each 1 Each DAILY Vitals/I & O Vital Sign - Last 24 Hours 08/27/18 08/27/18 08/27/18 08/27/18 12:30 12:46 13:00 14:00 Temp 98.4 98.4 Pulse 75 75 77 75 Resp 16 20 16 15 B/P (MAP) 123/79 (94) 141/48 (79) 141/48 (79) 127/43 (71) Pulse Ox 98 96 98 99 O2 Delivery Room Air Room Air Room Air Room Air 08/27/18 08/27/18 08/27/18 08/27/18 15:00 15:05 16:12 17:06 Pulse 87 78 Resp 17 19 18 B/P (MAP) 137/63 (87) 128/48 (74) Pulse Ox 98 97 96 O2 Delivery Room Air Room Air Room Air Room Air 4/22/19 08/27/18 08/27/18 08/27/18 17:36 19:00 19:41 23:00 Temp 98.9 98.8 98.9 98.8 Pulse 85 81 Resp 16 18 B/P (MAP) 131/80 (97) 126/76 (93) Pulse Ox 92 93 O2 Delivery Room Air Room Air Room Air Room Air 08/27/18 08/28/18 08/28/18 08/28/1823 00:11 01:11 03:00 Temp 97.9 97.9 Pulse 81 Resp 16 B/P (MAP) 116/60 (78) Pulse Ox 93 93 93 O2 Delivery Room Air Room Air Room Air 08/28/18 08/28/18 08/28/18 08/28/18 07:00 08:28 08:37 10:42 Temp 97.7 97.7 Pulse 74 Resp 18 B/P (MAP) 119/65 (83) Pulse Ox 97 O2 Delivery Room Air Room Air Room Air Room Air Intake and Output 0 08/27/18 08/27/18 08/28/18 15:00 23:00 07:00 Output Total 450 ml 250 ml Balance -450 ml -250 ml EMILIANO BRIAN III DO Aug 28, 2018 11:32
--- NOTE | 2018-08-28 14:21 | NUR ---
SW following for discharge planning. Discussed with RN, OT recommending SNU, SW awaiting PT recommendations and notes to determine discharge planning. SW will continue to follow.
[2018-08-28 15:00] VITALS: BP 140/74
--- NOTE | 2018-08-28 16:02 | NUR ---
Dr. Cool returned Gricelda's page at [phone]. Said it is ok to cancel CT at this time, since pt. is unable to lie still.
--- NOTE | 2018-08-28 19:04 | CONS ---
DATE OF CONSULTATION: 08/28/2018 REQUESTING PHYSICIAN: Dr. Rogers. REASON FOR CONSULTATION: Leg wounds. HISTORY OF PRESENT ILLNESS: The patient is a 68-year-old gentleman with history of morbid obesity and chronic back pain and has been worked up and evaluated in the past with MRIs. Also, has known lymphedema and also has chronic wound and [facility] Last week, he was seen in the lymphedema clinic, had a little bit of swelling in both lower extremities. He states his right lower extremity was wrapped on Monday, but then when he got home, he started to have some drainage from his left leg. Over the course of the weekend, the drainage worsened and became bilateral. He followed up with physical therapy on the first and states that Wound Care was consulted and he subsequently was sent to the Emergency Room at [facility]. He states that he developed redness over the course of a day or so. No fevers or chills or sweats or shortness of air. He had no headaches, sore throat or cough. No dysuria, frequency or urgency. No diarrhea or cramps. He has not been taking any antimicrobials prior to admission. His white blood cell count was 11.5 on arrival. He underwent foot x-rays bilaterally that showed severe soft tissue swelling that was nonspecific and he has been afebrile. He was placed on vancomycin and Zosyn. Currently, the patient is seated in a chair. He is unable to lie flat secondary to back spasms. PAST MEDICAL HISTORY: Positive for chronic back pain, chronic lymphedema, history of constipation, BPH. REVIEW OF SYSTEMS: Otherwise negative. ALLERGIES: No known drug allergies. 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 No tobacco or alcohol. He does have a cat. Cat sits on his feet, but he denies any known trauma, licking, biting or scratching. FAMILY HISTORY: Positive for hypercholesterolemia and hypertension. CURRENT MEDICATIONS: Included vancomycin, Zosyn, baclofen, Dulcolax, calcium, Lasix, Ativan, morphine and Flomax. Other medications are available and have been reviewed in the chart. PHYSICAL EXAMINATION: VITAL SIGNS: He is afebrile, temperature is 97.7, pulse 74, respirations 18, blood pressure 119/65, saturating 97% on room air. GENERAL: He is sitting in a chair. HEENT: His pupils are equal and reactive. Normal conjunctivae. Oral cavity, pharynx was clear. NECK: Supple. Good range of motion. LUNGS: Clear to auscultation bilaterally. HEART: S1, S2. ABDOMEN: Obese, soft, no guarding, no rebound. BACK: Without any signs of gross inflammation. No redness or fullness. EXTREMITIES: He has bilateral lower extremity lymphedema with 3-4+ edema. His bilateral feet have erythema. There is mild warmth. He has tinea on both his feet as well. SKIN: Without generalized rash. NEUROLOGIC: Nonfocal, answers questions. PSYCHIATRIC: Affect is appropriate. LABORATORY DATA: White count 11.5, hemoglobin 12.8, platelets of 201, segs 73, lymphs 15, 10 monocytes, sed rate was 67. Creatinine 1.2, glucose 100. Normal liver function study tests. Urinalysis, occasional squamous, no bacteria, nitrite and leukocyte esterase negative. Radiology reviewed in history of present illness. IMPRESSION: 1. Leukocytosis. 2. Lymphedema. 3. Left lower extremity cellulitis. 4. Tinea. 5. Cat exposure on the leg and "lies on his feet." Denies any known bites, scratches or licking. RECOMMENDATIONS: For now, I will discontinue vancomycin. We will add Zyvox, fluconazole. Continue Zosyn. Follow up labs and cultures. Elevation. Back pain, as per primary. He has had previous MRIs. This was discussed with the family. Discussed with nursing. Thank you for allowing me to participate in this patient's care. Should you have any questions, please do not hesitate to contact me. TARIK CHILDERS MD DR: MARISSA/vel JOB#: [id number] / [id number]
[2018-08-28 19:15] VITALS: BP 115/43
[2018-08-28] MEDS: LACTOBACILLUS RHAMNOSUS GG 1 CAPSULE. PO SCH (21:41)
[2018-08-28] MEDS: TAMSULOSIN 0.4 MG CAP.ER.24H. PO SCH (21:42)
[2018-08-28 23:07] VITALS: BP 121/60
[2018-08-29 03:16] VITALS: BP 103/103
[2018-08-29 04:52] LABS: BASO % 0 % (0-3); EOS # 0.1 x10^3/uL (0.0-0.7); EOS % 1 % (0-3); HEMATOCRIT 36.6 % (39.0-53.0); HEMOGLOBIN 12.8 g/dL (13.0-17.5); LYMPH # 1.6 x10^3/uL (1.0-4.8); LYMPH % 14 % (24-48); MEAN CORPUSCULAR HEMOGLOBIN 32 pg (25-35); MEAN CORPUSCULAR HGB CONC 35 g/dL (31-37); MEAN CORPUSCULAR VOLUME 91 fL (79-100); MONO # 1.1 x10^3/uL (0.0-1.1); MONO % 9 % (0-9); NEUT # 8.8 x10^3uL (1.8-7.7); NEUT % 76 % (31-73); PLATELET COUNT 209 x10^3/uL (140-400); RED BLOOD COUNT 4.01 x10^6/uL (4.30-5.70); RED CELL DISTRIBUTION WIDTH 13.2 % (11.5-14.5); WHITE BLOOD COUNT 11.6 x10^3/uL (4.0-11.0)
[2018-08-29] MEDS: PIPERACILLIN/TAZOBACTAM 3.375 GM in IV NORMAL SALINE 50ML 50 ML IV SCH ×4 (04:59→23:37)
[2018-08-29 05:08] LABS: CALCIUM 8.4 mg/dL (8.5-10.1); CREATININE 1.6 mg/dL (0.7-1.3); GFR 43.3; POTASSIUM 3.5 mmol/L (3.5-5.1)
[2018-08-29 07:00] VITALS: BP 90/49
[2018-08-29] MEDS: FLUCONAZOLE 100 MG TABLET. PO SCH (08:31)
[2018-08-29] MEDS: LACTOBACILLUS RHAMNOSUS GG 1 CAPSULE. PO SCH ×2 (08:31→21:18)
[2018-08-29] MEDS: ASCORBIC ACID 500 MG TABLET PO SCH (08:31)
[2018-08-29] MEDS: FUROSEMIDE 40 MG/4 ML VIAL. IVP SCH (08:31)
[2018-08-29] MEDS: LINEZOLID 600 MG TABLET PO SCH ×2 (08:31→21:18)
[2018-08-29] MEDS: MULTIVITAMIN with MINERAL TABLET. PO SCH (08:31)
[2018-08-29] MEDS: BACLOFEN 10 MG TABLET. PO SCH ×3 (08:32→21:18)
--- NOTE | 2018-08-29 09:32 | PDOC ---
Infectious Disease Note Subjective Subjective Some better with less swelling Had some urinary retention and is being evaluated Some constipation Legs less swelling No F/C/S/SOA/rash ROS ROS o/w neg Vital Sign Vital Signs Vital Signs Date Time Temp Pulse Resp B/P (MAP) Pulse Ox O2 Delivery O2 Flow Rate FiO2 08/29/18 07:00 98.2 53 18 90/49 (63) 93 Room Air 98.2 Physical Exam PHYSICAL EXAM GENERAL: He is sitting in a chair after ambulating from bathroom with walker. NAD/coop. HEENT: His pupils are equal and reactive. Normal conjunctivae. Oral cavity, pharynx was clear. NECK: Supple. Good range of motion. LUNGS: Clear to auscultation bilaterally. HEART: S1, S2. ABDOMEN: Obese, soft, no guarding, no rebound. BACK: Without any signs of gross inflammation. No redness or fullness. EXTREMITIES: He has bilateral lower extremity lymphedema with 3 + edema. His bilateral feet have erythema. There is less warmth. He has tinea on both his feet as well. SKIN: Without generalized rash. NEUROLOGIC: Nonfocal, answers questions. PSYCHIATRIC: Affect is appropriate Labs Lab Laboratory Tests Test 08/28/18 12:50 08/29/18 04:10 [id number]-[id number]-Type Natriuretic Peptide 143 pg/mL (0-124) White Blood Count 11.6 x10^3/uL (4.0-11.0) Red Blood Count 4.01 x10^6/uL (4.30-5.70) Hemoglobin 12.8 g/dL (13.0-17.5) Hematocrit 36.6 % (39.0-53.0) Mean Corpuscular Volume 91 fL (79-100) Mean Corpuscular Hemoglobin 32 pg (25-35) Mean Corpuscular Hemoglobin Concent 35 g/dL (31-37) Red Cell Distribution Width 13.2 % (11.5-14.5) Platelet Count 209 x10^3/uL (140-400) Neutrophils (%) (Auto) 76 % (31-73) Lymphocytes (%) (Auto) 14 % (24-48) Monocytes (%) (Auto) 9 % (0-9) Eosinophils (%) (Auto) 1 % (0-3) Basophils (%) (Auto) 0 % (0-3) Neutrophils # (Auto) 8.8 x10^3uL (1.8-7.7) Lymphocytes # (Auto) 1.6 x10^3/uL (1.0-4.8) Monocytes # (Auto) 1.1 x10^3/uL (0.0-1.1) Eosinophils # (Auto) 0.1 x10^3/uL (0.0-0.7) Basophils # (Auto) 0.0 x10^3/uL (0.0-0.2) Sodium Level 142 mmol/L (136-145) Potassium Level 3.5 mmol/L (3.5-5.1) Chloride Level 105 mmol/L (98-107) Carbon Dioxide Level 23 mmol/L (21-32) Anion Gap 14 (6-14) Blood Urea Nitrogen 29 mg/dL (8-26) Creatinine 1.6 mg/dL (0.7-1.3) Estimated GFR (Cockcroft-Gault) 43.3 Glucose Level 126 mg/dL (70-99) Calcium Level 8.4 mg/dL (8.5-10.1) Micro Microbiology 08/27/18 Blood Culture - Preliminary, Resulted NO GROWTH AFTER 1 DAY 08/27/18 Aerobic Culture, Resulted Pending 08/27/18 Aerobic Culture Result 1 (ACACIA), Resulted Pending 08/27/18 Gram Stain - Final, Resulted 08/27/18 Gram Stain Result 1 (ACACIA) - Final, Resulted 08/27/18 Gram Stain Result 2 (ACACIA) - Final, Resulted Objective Assessment Leukocytosis - stable JOSE Lymphedema LE cellulitis - few GNR on gram stain Tinea Cat exposure - "lays on his feet" Denies known bites/scratches or licking Plan Plan of Care JOSE per primary but will d/c Toradol Cont Zyvox/fluconazole/ Zosyn F/u labs and cults Elevation Back pain per primary D/w family D/w nursing TARIK CHILDERS MD Aug 29, 2018 09:32
--- NOTE | 2018-08-29 10:40 | NUR ---
SW following for discharge planning. Discussed with RN, pt fell at [facility] this morning, is having an echo today. PT/OT recommending SNU. SW to meet with pt after testing to discuss SNU recommendation. SW will continue to follow.
[2018-08-29 11:00] VITALS: BP 94/72
--- NOTE | 2018-08-29 12:18 | PDOC ---
PROGRESS NOTES Chief Complaint Chief Complaint CC: LE wounds since April in the setting of chronic lymphedema History of Present Illness History of Present Illness Pt seen and examined this morning, daughter at bedside Pt has been incontinent of bowel and bladder and is unaware. States he is having some new numbness in his legs, notes history of spinal stenosis on MRI in 2018 Discussed care with PT Has refused imaging 2/2 inability to lay flat No new complaints Vitals Vitals Vital Signs Date Time Temp Pulse Resp B/P (MAP) Pulse Ox O2 Delivery O2 Flow Rate FiO2 08/29/18 11:00 98.0 76 18 94/72 (79) 95 Room Air 98.0 Physical Exam General: Alert, Oriented X3, Cooperative, No acute distress Heart: Regular rate, Normal S1, Normal S2, No murmurs Lungs: Clear, Other (No crackels or wheezing) Abdomen: Normal bowel sounds, Soft, No tenderness, No hepatosplenomegaly, No masses Extremities: Other (LE edema, dressings C/D/I, Tienia B/l LE) Skin: Other (severe lower extremity tight pitting edema, red swollen, no open lesions, draining ) Labs LABS Laboratory Tests Test 08/28/18 12:50 08/29/18 04:10 QB-Mdc-S-Type Natriuretic Peptide 143 pg/mL (0-124) White Blood Count 11.6 x10^3/uL (4.0-11.0) Red Blood Count 4.01 x10^6/uL (4.30-5.70) Hemoglobin 12.8 g/dL (13.0-17.5) Hematocrit 36.6 % (39.0-53.0) Mean Corpuscular Volume 91 fL (79-100) Mean Corpuscular Hemoglobin 32 pg (25-35) Mean Corpuscular Hemoglobin Concent 35 g/dL (31-37) Red Cell Distribution Width 13.2 % (11.5-14.5) Platelet Count 209 x10^3/uL (140-400) Neutrophils (%) (Auto) 76 % (31-73) Lymphocytes (%) (Auto) 14 % (24-48) Monocytes (%) (Auto) 9 % (0-9) Eosinophils (%) (Auto) 1 % (0-3) Basophils (%) (Auto) 0 % (0-3) Neutrophils # (Auto) 8.8 x10^3uL (1.8-7.7) Lymphocytes # (Auto) 1.6 x10^3/uL (1.0-4.8) Monocytes # (Auto) 1.1 x10^3/uL (0.0-1.1) Eosinophils # (Auto) 0.1 x10^3/uL (0.0-0.7) Basophils # (Auto) 0.0 x10^3/uL (0.0-0.2) Sodium Level 142 mmol/L (136-145) Potassium Level 3.5 mmol/L (3.5-5.1) Chloride Level 105 mmol/L (98-107) Carbon Dioxide Level 23 mmol/L (21-32) Anion Gap 14 (6-14) Blood Urea Nitrogen 29 mg/dL (8-26) Creatinine 1.6 mg/dL (0.7-1.3) Estimated GFR (Cockcroft-Gault) 43.3 Glucose Level 126 mg/dL (70-99) Calcium Level 8.4 mg/dL (8.5-10.1) Review of Systems Review of Systems Denies F/C Denies CP or SOA Assessment and Plan Assessmemt and Plan Assessment: B/l LE cellulitis Chronic lymphedema of the LE extremities, draining wounds Neuropathy Leukocytosis Tinea pedis JOSE, Cr increased to 1.6 on 08/29/18 Plan: Neurosurgery consulted for new onset LE numbness and incontinence, MRI 2018 showing spinal stenosis, appreciate recommendations D/c Toradol and switched Lasix 40 BID to Qday, monitor kidney fxn, PT lymphedema specialist Strict I&O's Echo scheduled for today SW consulted for SNU eval Pt has refused CT imaging 2/2 inability to lie flat, discussed other options with pt Local WC, encouraged pt to keep legs elevated D/c Vancomycin, On zosyn, Zyvox, and fluconazole; appreicated ID recommendations Pain control Home Rx PT/OT ordered Full Code Problems Medical Problems: (1) Bilateral lower leg cellulitis Status: Acute (2) Lymphedema of extremity Status: Acute Comment Review of Relevant I have reviewed the following items otilio (where applicable) has been applied. Labs Laboratory Tests Test 08/27/18 13:10 08/27/18 13:20 08/27/18 14:10 08/28/18 12:50 Urine Color Chelsie Urine Clarity Clear Urine pH 5.5 Urine Specific [place] 1.025 Urine Protein Negative mg/dL (NEG-TRACE) Urine Glucose (UA) Negative mg/dL (NEG) Urine Ketones (Stick) Trace mg/dL (NEG) Urine Blood Negative (NEG) Urine Nitrite Negative (NEG) Urine Bilirubin Small (NEG) Urine Urobilinogen Dipstick 0.2 mg/dL (0.2 mg/dL) Urine Leukocyte Esterase Negative (NEG) Urine RBC Rare /HPF (0-2) Urine WBC Occ /HPF (0-4) Urine Squamous Epithelial Cells Occ /LPF Urine Bacteria 0 /HPF (0-FEW) Urine Mucus Mod /LPF White Blood Count 11.5 x10^3/uL (4.0-11.0) Red Blood Count 4.22 x10^6/uL (4.30-5.70) Hemoglobin 12.8 g/dL (13.0-17.5) Hematocrit 39.2 % (39.0-53.0) Mean Corpuscular Volume 93 fL (79-100) Mean Corpuscular Hemoglobin 30 pg (25-35) Mean Corpuscular Hemoglobin Concent 33 g/dL (31-37) Red Cell Distribution Width 13.6 % (11.5-14.5) Platelet Count 201 x10^3/uL (140-400) Neutrophils (%) (Auto) 73 % (31-73) Lymphocytes (%) (Auto) 16 % (24-48) Monocytes (%) (Auto) 10 % (0-9) Eosinophils (%) (Auto) 1 % (0-3) Basophils (%) (Auto) 0 % (0-3) Neutrophils # (Auto) 8.4 x10^3uL (1.8-7.7) Lymphocytes # (Auto) 1.9 x10^3/uL (1.0-4.8) Monocytes # (Auto) 1.2 x10^3/uL (0.0-1.1) Eosinophils # (Auto) 0.1 x10^3/uL (0.0-0.7) Basophils # (Auto) 0.0 x10^3/uL (0.0-0.2) Erythrocyte Sedimentation Rate 67 (0-15) Prothrombin Time 14.6 SEC (11.7-14.0) Prothromb Time International Ratio 1.2 (0.8-1.1) Activated Partial Thromboplast Time 30 SEC (24-38) Lactic Acid Level 1.2 mmol/L (0.4-2.0) Sodium Level 139 mmol/L (136-145) Potassium Level 3.9 mmol/L (3.5-5.1) Chloride Level 103 mmol/L (98-107) Carbon Dioxide Level 25 mmol/L (21-32) Anion Gap 11 (6-14) Blood Urea Nitrogen 21 mg/dL (8-26) Creatinine 1.2 mg/dL (0.7-1.3) Estimated GFR (Cockcroft-Gault) 60.4 BUN/Creatinine Ratio 18 (6-20) Glucose Level 100 mg/dL (70-99) Calcium Level 8.3 mg/dL (8.5-10.1) Total Bilirubin 0.5 mg/dL (0.2-1.0) Aspartate Amino Transf (AST/SGOT) 15 U/L (15-37) Alanine Aminotransferase (ALT/SGPT) 20 U/L (16-63) Alkaline Phosphatase 58 U/L (46-116) Total Protein 7.1 g/dL (6.4-8.2) Albumin 3.3 g/dL (3.4-5.0) Albumin/Globulin Ratio 0.9 (1.0-1.7) YV-Dlc-K-Type Natriuretic Peptide 143 pg/mL (0-124) Test 08/29/18 04:10 White Blood Count 11.6 x10^3/uL (4.0-11.0) Red Blood Count 4.01 x10^6/uL (4.30-5.70) Hemoglobin 12.8 g/dL (13.0-17.5) Hematocrit 36.6 % (39.0-53.0) Mean Corpuscular Volume 91 fL (79-100) Mean Corpuscular Hemoglobin 32 pg (25-35) Mean Corpuscular Hemoglobin Concent 35 g/dL (31-37) Red Cell Distribution Width 13.2 % (11.5-14.5) Platelet Count 209 x10^3/uL (140-400) Neutrophils (%) (Auto) 76 % (31-73) Lymphocytes (%) (Auto) 14 % (24-48) Monocytes (%) (Auto) 9 % (0-9) Eosinophils (%) (Auto) 1 % (0-3) Basophils (%) (Auto) 0 % (0-3) Neutrophils # (Auto) 8.8 x10^3uL (1.8-7.7) Lymphocytes # (Auto) 1.6 x10^3/uL (1.0-4.8) Monocytes # (Auto) 1.1 x10^3/uL (0.0-1.1) Eosinophils # (Auto) 0.1 x10^3/uL (0.0-0.7) Basophils # (Auto) 0.0 x10^3/uL (0.0-0.2) Sodium Level 142 mmol/L (136-145) Potassium Level 3.5 mmol/L (3.5-5.1) Chloride Level 105 mmol/L (98-107) Carbon Dioxide Level 23 mmol/L (21-32) Anion Gap 14 (6-14) Blood Urea Nitrogen 29 mg/dL (8-26) Creatinine 1.6 mg/dL (0.7-1.3) Estimated GFR (Cockcroft-Gault) 43.3 Glucose Level 126 mg/dL (70-99) Calcium Level 8.4 mg/dL (8.5-10.1) Laboratory Tests Test 08/28/18 12:50 08/29/18 04:10 NW-Cog-H-Type Natriuretic Peptide 143 pg/mL (0-124) White Blood Count 11.6 x10^3/uL (4.0-11.0) Red Blood Count 4.01 x10^6/uL (4.30-5.70) Hemoglobin 12.8 g/dL (13.0-17.5) Hematocrit 36.6 % (39.0-53.0) Mean Corpuscular Volume 91 fL (79-100) Mean Corpuscular Hemoglobin 32 pg (25-35) Mean Corpuscular Hemoglobin Concent 35 g/dL (31-37) Red Cell Distribution Width 13.2 % (11.5-14.5) Platelet Count 209 x10^3/uL (140-400) Neutrophils (%) (Auto) 76 % (31-73) Lymphocytes (%) (Auto) 14 % (24-48) Monocytes (%) (Auto) 9 % (0-9) Eosinophils (%) (Auto) 1 % (0-3) Basophils (%) (Auto) 0 % (0-3) Neutrophils # (Auto) 8.8 x10^3uL (1.8-7.7) Lymphocytes # (Auto) 1.6 x10^3/uL (1.0-4.8) Monocytes # (Auto) 1.1 x10^3/uL (0.0-1.1) Eosinophils # (Auto) 0.1 x10^3/uL (0.0-0.7) Basophils # (Auto) 0.0 x10^3/uL (0.0-0.2) Sodium Level 142 mmol/L (136-145) Potassium Level 3.5 mmol/L (3.5-5.1) Chloride Level 105 mmol/L (98-107) Carbon Dioxide Level 23 mmol/L (21-32) Anion Gap 14 (6-14) Blood Urea Nitrogen 29 mg/dL (8-26) Creatinine 1.6 mg/dL (0.7-1.3) Estimated GFR (Cockcroft-Gault) 43.3 Glucose Level 126 mg/dL (70-99) Calcium Level 8.4 mg/dL (8.5-10.1) Microbiology 08/27/18 Blood Culture - Preliminary, Resulted NO GROWTH AFTER 1 DAY 08/27/18 Aerobic Culture, Resulted Pending 08/27/18 Aerobic Culture Result 1 (ACACIA), Resulted Pending 08/27/18 Gram Stain - Final, Resulted 08/27/18 Gram Stain Result 1 (ACACIA) - Final, Resulted 08/27/18 Gram Stain Result 2 (ACACIA) - Final, Resulted Medications Current Medications Ondansetron HCl (Zofran) 4 mg PRN Q6HRS PRN IV NAUSEA/VOMITING 1ST CHOICE; Start 08/27/18 at 13:45 Prochlorperazine Edisylate (Compazine) 10 mg PRN Q6HRS PRN IV NAUSEA/VOMITING (2nd Choice); Start 08/27/18 at 13:45 Prochlorperazine (Compazine) 25 mg PRN Q12HR PRN NC NAUSEA/VOMITING; Start 08/27/18 at 14:00 Al Hydroxide/Mg Hydroxide (Mylanta Plus Xs) 30 ml PRN Q3HRS PRN PO HEARTBURN / GAS; Start 08/27/18 at 13:45 Calcium Carbonate/ Glycine (Tums) 500 mg PRN Q3HRS PRN PO UPSET STOMACH; Start 08/27/18 at 13:45 Zolpidem Tartrate (Ambien) 5 mg PRN QHS PRN PO INSOMNIA, MAY REPEAT IN 1HR Last administered on 08/28/18at 00:11; Start 08/27/18 at 13:45 Oxycodone HCl (Roxicodone) 5 mg PRN Q3HRS PRN PO MILD PAIN 2ND CHOICE; Start 08/27/18 at 13:45 Morphine Sulfate (Morphine Sulfate) 2 mg PRN Q2HR PRN IV MODERATE PAIN Last administered on 08/27/18at 17:06; Start 08/27/18 at 13:45 Ketorolac Tromethamine (Toradol 15mg Vial) 15 mg PRN Q6HRS PRN IV MILD PAIN; Start 08/27/18 at 13:45; Stop 08/29/18 at 09:33; Status DC Acetaminophen (Tylenol) 650 mg PRN Q6HRS PRN PO Headaches, Temp > 101.5F; Start 08/27/18 at 13:45 Magnesium Hydroxide (Milk Of Magnesia) 2,400 mg PRN Q12HR PRN PO CONSTIPATION; Start 08/27/18 at 13:45 Bisacodyl (Dulcolax Supp) 10 mg PRN DAILY PRN NC CONSTIPATION; Start 08/27/18 at 13:45 Furosemide (Lasix) 40 mg PRN DAILY PRN PO SWELLING; Start 08/27/18 at 13:45; Stop 08/27/18 at 14:06; Status DC Potassium Chloride (Klor-Con) 10 meq PRN DAILY PRN PO take with furosemide; Start 08/27/18 at 13:45 Tamsulosin HCl (Flomax) 0.4 mg QHS PO Last administered on 08/28/18at 21:42; Start 08/27/18 at 21:00 Non-Formulary Medication (Info (No Known Medications Prior To Admisstion)) 1 each DAILY MC ; Start 08/28/18 at 09:00; Status UNV Cefazolin Sodium 50 ml @ 100 mls/hr 1X ONCE IV Last administered on 08/27/18at 14:18; Start 08/27/18 at 14:15; Stop 08/27/18 at 14:44; Status DC Furosemide (Lasix) 40 mg [id number] IVP Last administered on 08/29/18at 08:31; Start 08/27/18 at 14:00 Vancomycin HCl (Vanco Per Pharmacy) 1 each PRN DAILY PRN MC SEE COMMENTS Last administered on 08/27/18at 17:40; Start 08/27/18 at 14:15; Stop 08/28/18 at 08:40; Status DC Piperacillin Sod/ Tazobactam Sod (Zosyn Per Pharmacy) 1 each PRN DAILY PRN MC SEE COMMENTS; Start 08/27/18 at 14:15 Baclofen (Lioresal) 20 mg TID PO Last administered on 08/29/18at 08:32; Start 08/27/18 at 21:00 Fentanyl Citrate (Fentanyl 2ml Vial) 50 mcg PRN Q2HR PRN IV SEVERE PAIN; Start 08/27/18 at 14:15 Oxycodone/ Acetaminophen (Percocet 5/325) 1 tab PRN Q4HRS PRN PO MILD PAIN Last administered on 08/28/18at 08:28; Start 08/27/18 at 14:15 Oxycodone/ Acetaminophen (Percocet 10/325) 1 tab PRN Q4HRS PRN PO MODERATE- SEVERE PAIN; Start 08/27/18 at 14:15 Piperacillin Sod/ Tazobactam Sod 3.375 gm/Sodium Chloride 50 ml @ 100 mls/hr Q6H IV Last administered on 08/29/18at 11:25; Start 08/27/18 at 17:00 Vancomycin HCl 2 gm/Sodium Chloride 500 ml @ 250 mls/hr 1X ONCE IV Last administered on 08/27/18at 17:06; Start 08/27/18 at 15:00; Stop 08/27/18 at 16:59; Status DC Lorazepam (Ativan) 2 mg 1X ONCE IV Last administered on 08/27/18at 15:05; Start 08/27/18 at 15:00; Stop 08/27/18 at 15:01; Status DC Morphine Sulfate (Morphine Sulfate) 4 mg 1X ONCE IV Last administered on 08/27/18at 15:05; Start 08/27/18 at 15:00; Stop 08/27/18 at 15:01; Status DC Lorazepam (Ativan) 4 mg 1X ONCE IV ; Start 08/27/18 at 15:45; Stop 08/27/18 at 15:46; Status DC Fentanyl Citrate (Fentanyl 2ml Vial) 75 mcg 1X ONCE IV ; Start 08/27/18 at 15:45; Stop 08/27/18 at 15:46; Status DC Vancomycin HCl 2 gm/Sodium Chloride 500 ml @ 250 mls/hr Q12H IV Last administered on 08/28/18at 05:00; Start 08/28/18 at 05:00; Stop 08/28/18 at 08:40; Status DC Vancomycin HCl (Vancomycin Trough Level) 1 each 1X ONCE MC ; Start 08/29/18 at 04:30; Stop 08/29/18 at 04:31; Status Cancel Fluconazole (Diflucan) 200 mg DAILY PO Last administered on 08/29/18 08:31; Start 08/28/18 at 09:00 Linezolid (Zyvox) 600 mg BID PO Last administered on 08/29/18at 08:31; Start 08/28/18 at 09:00 Ascorbic Acid (Vitamin C) 500 mg DAILY PO Last administered on 08/29/18 08:31; Start 08/28/18 at 11:30 Multivitamins (Thera M Plus) 1 tab DAILY PO Last administered on 08/29/18 08:31; Start 08/28/18 at 11:30 Lactobacillus Rhamnosus (Culturelle) 1 cap BID PO Last administered on 08/29/18 08:31; Start 08/28/18 at 21:00 Active Scripts Active Potassium Chloride 10 Meq Tab.sr.24h 10 Meq PO DAILY PRN 30 Days Furosemide 40 Mg Tablet 1 Tab PO DAILY PRN 30 Days Flomax (Tamsulosin Hcl) 0.4 Mg Cap.er.24h 0.4 Mg PO QHS 30 Days Reported No Known Medications Prior To Admisstion (Info) Each 1 Each MC DAILY Vitals/I & O Vital Sign - Last 24 Hours 08/28/18 08/28/18 08/28/18 08/28/18 15:00 19:15 19:40 23:07 Temp 97.9 97.7 98.4 97.9 97.7 98.4 Pulse 76 75 80 Resp 18 18 18 B/P (MAP) 140/74 (96) 115/43 (67) 121/60 (80) Pulse Ox 91 96 95 O2 Delivery Room Air Room Air Room Air Room Air 08/29/18 08/29/18 08/29/18 08/29/18 03:16 07:00 08:00 11:00 Temp 97.7 98.2 98.0 97.7 98.2 98.0 Pulse 79 53 76 Resp 20 18 18 B/P (MAP) 103/103 (103) 90/49 (63) 94/72 (79) Pulse Ox 94 93 95 O2 Delivery Room Air Room Air Room Air Room Air Intake and Output 08/28/18 08/28/18 08/29/18 15:00 23:00 07:00 Intake Total 480 ml Output Total 100 ml 500 ml 300 ml Balance -100 ml -500 ml 180 ml EMILIANO BRIAN III DO Aug 29, 2018 12:18
--- NOTE | 2018-08-29 14:39 | CARD ---
MR#: [id number] Date of Study: 08/29/2018 Ordering Physician: EMILIANO BRIAN, Referring Physician: KRISHNA DWYER Tech: Roula Velazquez [facility] APPROVED REPORT EXAM: Two-dimensional and M-mode echocardiogram with Doppler and color Doppler. Other Information Quality : Fair INDICATION LV Function:Systolic 2D DIMENSIONS Left Atrium(2D)4.8 (1.6-4.0cm)IVSd1.4 (0.7-1.1cm) Aortic Root(2D)3.9 (2.0-3.7cm)LVDd5.7 (3.9-5.9cm) LVOT Diameter2.9 (1.8-2.4cm)PWd1.3 (0.7-1.1cm) LVDs3.2 (2.5-4.0cm)FS (%) 30.0 % SV120.0 mlLVEF(%)60.0 (>50%) Aortic Valve AoV Peak Caden.164.5cm/sAoV VTI28.2cm AO Peak GR.10.8mmHgLVOT VTI 25.39cm AO Mean GR.6mmHg Mitral Valve MV E Eluobvqx02.1cm/sMV DECEL [id number] MV A Jzqmosgs06.5cm/sE/A Ratio1.4 TDI Lateral E' P. V3.86cm/sMedial E' P. V6.05cm/s E/Lateral E'25.7E/Medial E'16.4 LEFT VENTRICLE The left ventricle is normal size. There is mild concentric left ventricular hypertrophy. The left ve ntricular systolic function is normal. The Ejection Fraction is 55-60%. There is normal LV segmental wall motion. Transmitral Doppler flow pattern is Grade II-pseudonormal filling dynamics. RIGHT VENTRICLE The right ventricle is normal size. The right ventricular systolic function is normal. ATRIA The left atrium is mildly dilated. The right atrium size is normal. The interatrial septum is intact with no evidence for an atrial septal defect or patent foramen ovale as noted on 2-D or Doppler imagi ng. AORTIC VALVE The aortic valve is calcified but opens well. Doppler and Color Flow revealed no significant aortic r egurgitation. There is no significant aortic valvular stenosis. MITRAL VALVE The mitral valve is calcified but opens well. There is no evidence of mitral valve prolapse. There is no mitral valve stenosis. Doppler and Color Flow revealed no mitral valve regurgitation noted. TRICUSPID VALVE The tricuspid valve is normal in structure and function. Doppler and Color Flow revealed trace tricus pid valve regurgitation. There is no tricuspid valve stenosis. PULMONIC VALVE The pulmonic valve is not well visualized. Doppler and Color Flow revealed trace pulmonic valvular re gurgitation. There is no pulmonic valvular stenosis. GREAT VESSELS The aortic root is normal in size. The ascending aorta is not well seen. The IVC was not visualized. PERICARDIAL EFFUSION There is no evidence of significant pericardial effusion. Critical Notification Critical Value: No <Conclusion> The left ventricular systolic function is normal. The Ejection Fraction is 55-60%. There is normal LV segmental wall motion. The left atrium is mildly dilated. Trace tricuspid valve regurgitation. There is no evidence of significant pericardial effusion. Signed by : Ryan Corrales, Electronically Approved : 08/29/2018 14:38:54
[2018-08-29 15:00] VITALS: BP 131/66
--- NOTE | 2018-08-29 15:46 | NUR ---
SW following. BURAK met with pt to discuss discharge planning. Pt is agreeable to SNU and would like to go to [facility] in [facility] as it is close to his home. SW faxed referral, insurance will need to auth. BURAK will continue to follow.
--- NOTE | 2018-08-29 15:51 | PDOC ---
Provider Note Provider Note patient seen and examined at 1300 chronic back pain, reports numbness in lower extremities. positive tenderness in left SI region, normal strength in lower extremities, severe lymphedema in lower extremities Lumbar MRI from April reviewed, mild lumbar spinal stenosis and degenerative changes a surgical problem was not seen recommend conservative measures, Dr. Frias is following full consult to follow BECKY MARTINEZ MD Aug 29, 2018 15:51
[2018-08-29 19:00] VITALS: BP 124/53
[2018-08-29] MEDS: TAMSULOSIN 0.4 MG CAP.ER.24H. PO SCH (21:18)
[2018-08-29 23:00] VITALS: BP 136/62
[2018-08-30 02:58] VITALS: BP 127/79
[2018-08-30 04:17] LABS: BASO % 0 % (0-3); EOS # 0.1 x10^3/uL (0.0-0.7); EOS % 2 % (0-3); HEMATOCRIT 34.8 % (39.0-53.0); HEMOGLOBIN 11.7 g/dL (13.0-17.5); LYMPH # 2.3 x10^3/uL (1.0-4.8); LYMPH % 26 % (24-48); MEAN CORPUSCULAR HEMOGLOBIN 31 pg (25-35); MEAN CORPUSCULAR HGB CONC 34 g/dL (31-37); MEAN CORPUSCULAR VOLUME 93 fL (79-100); MONO # 0.9 x10^3/uL (0.0-1.1); MONO % 11 % (0-9); NEUT # 5.4 x10^3uL (1.8-7.7); NEUT % 61 % (31-73); PLATELET COUNT 210 x10^3/uL (140-400); RED BLOOD COUNT 3.76 x10^6/uL (4.30-5.70); RED CELL DISTRIBUTION WIDTH 13.1 % (11.5-14.5); WHITE BLOOD COUNT 8.8 x10^3/uL (4.0-11.0)
[2018-08-30 04:42] LABS: CALCIUM 8.5 mg/dL (8.5-10.1); CREATININE 1.3 mg/dL (0.7-1.3); GFR 55.1; POTASSIUM 3.4 mmol/L (3.5-5.1)
[2018-08-30] MEDS: PIPERACILLIN/TAZOBACTAM 3.375 GM in IV NORMAL SALINE 50ML 50 ML IV SCH ×4 (05:14→23:07)
[2018-08-30 07:00] VITALS: BP 136/47
[2018-08-30] MEDS ORDERED: POTASSIUM CHLORIDE 20 MEQ TABLET.ER. PO ONE (07:15)
[2018-08-30] MEDS: FLUCONAZOLE 100 MG TABLET. PO SCH (08:04)
[2018-08-30] MEDS: LINEZOLID 600 MG TABLET PO SCH ×2 (08:04→21:15)
[2018-08-30] MEDS: MULTIVITAMIN with MINERAL TABLET. PO SCH (08:05)
[2018-08-30] MEDS: BACLOFEN 10 MG TABLET. PO SCH ×3 (08:05→21:15)
[2018-08-30] MEDS: LACTOBACILLUS RHAMNOSUS GG 1 CAPSULE. PO SCH ×2 (08:05→21:15)
[2018-08-30] MEDS: ASCORBIC ACID 500 MG TABLET PO SCH (08:05)
[2018-08-30] MEDS: FUROSEMIDE 40 MG/4 ML VIAL. IVP SCH (08:05)
--- NOTE | 2018-08-30 09:25 | PDOC ---
Infectious Disease Note Subjective Subjective Some better with less swelling Back is same No F/C/S/SOA/rash Vital Sign Vital Signs Vital Signs Date Time Temp Pulse Resp B/P (MAP) Pulse Ox O2 Delivery O2 Flow Rate FiO2 08/30/18 08:00 Room Air 08/30/18 07:00 98.1 70 16 136/47 (76) 95 98.1 Physical Exam PHYSICAL EXAM GENERAL: He is sitting in a chair. NAD/coop. HEENT: His pupils are equal and reactive. Normal conjunctivae. Oral cavity, pharynx was clear. NECK: Supple. Good range of motion. LUNGS: Clear to auscultation bilaterally. HEART: S1, S2. ABDOMEN: Obese, soft, no guarding, no rebound. BACK: Without any signs of gross inflammation. No redness or fullness. EXTREMITIES: He has bilateral lower extremity lymphedema with 3 + edema. His bilateral feet have erythema. There is less warmth. He has tinea on both his feet as well. SKIN: Without generalized rash. NEUROLOGIC: Nonfocal, answers questions. PSYCHIATRIC: Affect is appropriate Labs Lab Laboratory Tests Test 08/30/18 03:15 White Blood Count 8.8 x10^3/uL (4.0-11.0) Red Blood Count 3.76 x10^6/uL (4.30-5.70) Hemoglobin 11.7 g/dL (13.0-17.5) Hematocrit 34.8 % (39.0-53.0) Mean Corpuscular Volume 93 fL (79-100) Mean Corpuscular Hemoglobin 31 pg (25-35) Mean Corpuscular Hemoglobin Concent 34 g/dL (31-37) Red Cell Distribution Width 13.1 % (11.5-14.5) Platelet Count 210 x10^3/uL (140-400) Neutrophils (%) (Auto) 61 % (31-73) Lymphocytes (%) (Auto) 26 % (24-48) Monocytes (%) (Auto) 11 % (0-9) Eosinophils (%) (Auto) 2 % (0-3) Basophils (%) (Auto) 0 % (0-3) Neutrophils # (Auto) 5.4 x10^3uL (1.8-7.7) Lymphocytes # (Auto) 2.3 x10^3/uL (1.0-4.8) Monocytes # (Auto) 0.9 x10^3/uL (0.0-1.1) Eosinophils # (Auto) 0.1 x10^3/uL (0.0-0.7) Basophils # (Auto) 0.0 x10^3/uL (0.0-0.2) Sodium Level 146 mmol/L (136-145) Potassium Level 3.4 mmol/L (3.5-5.1) Chloride Level 108 mmol/L (98-107) Carbon Dioxide Level 26 mmol/L (21-32) Anion Gap 12 (6-14) Blood Urea Nitrogen 29 mg/dL (8-26) Creatinine 1.3 mg/dL (0.7-1.3) Estimated GFR (Cockcroft-Gault) 55.1 Glucose Level 114 mg/dL (70-99) Calcium Level 8.5 mg/dL (8.5-10.1) Micro AEROBIC RES 1 Preliminary Comment Pseudomonas aeruginosa 1+ AEROBIC RES 2 Preliminary Comment Beta hemolytic Streptococcus, group C 4+ Penicillin and ampicillin are drugs of choice for treatment of beta-hemolytic streptococcal infections. Susceptibility testing of penicillins and other beta-lactam agents approved by the FDA for treatment of beta-hemolytic streptococcal infections need not be performed routinely because nonsusceptible isolates are extremely rare in any beta-hemolytic streptococcus and have not been reported for Streptococcus pyogenes (group A). (CLSI) Performed at: [facility] [id number], [place], [place] [id number] [place] Edge Rounder: PATRICIA Pan MD, Phone: [phone] Microbiology 08/27/18 Blood Culture - Preliminary, Resulted NO GROWTH AFTER 1 DAY 08/27/18 Aerobic Culture, Resulted Pending 08/27/18 Aerobic Culture Result 1 (ACACIA), Resulted Pending 08/27/18 Gram Stain - Final, Resulted 08/27/18 Gram Stain Result 1 (ACACIA) - Final, Resulted 08/27/18 Gram Stain Result 2 (ACACIA) - Final, Resulted Objective Assessment Leukocytosis - stable JOSE Lymphedema LE cellulitis - Pseudomonas/Group C sensitivities are pending Tinea Cat exposure - "lays on his feet" Denies known bites/scratches or licking Plan Plan of Care Cont Zyvox/fluconazole/Zosyn for now - d/c Zyvox soon - await Pseudomonas sensitivities F/u labs and cults Elevation Back pain per primary D/w family D/w nursing TARIK CHILDERS MD Aug 30, 2018 09:25
--- NOTE | 2018-08-30 09:55 | PDOC ---
PROGRESS NOTES Chief Complaint Chief Complaint CC: LE wounds since April in the setting of chronic lymphedema History of Present Illness History of Present Illness Pt seen and examined this morning, resting comfortably in chair NAD States he still has numbness in legs and c/o back pain that is affecting his sleep Has refused imaging 2/2 inability to lay flat No new complaints Vitals Vitals Vital Signs Date Time Temp Pulse Resp B/P (MAP) Pulse Ox O2 Delivery O2 Flow Rate FiO2 08/30/18 08:00 Room Air 08/30/18 07:00 98.1 70 16 136/47 (76) 95 98.1 Physical Exam General: Alert, Oriented X3, Cooperative, No acute distress Heart: Regular rate, Normal S1, Normal S2, No murmurs Lungs: Clear, Other (No crackels or wheezing) Abdomen: Normal bowel sounds, Soft, No tenderness, No hepatosplenomegaly, No masses Extremities: Other (LE edema, dressings C/D/I, Tienia B/l LE) Skin: Other (severe lower extremity tight pitting edema, red swollen, no open lesions, draining, LE dressings ) Labs LABS Laboratory Tests Test 08/30/18 03:15 White Blood Count 8.8 x10^3/uL (4.0-11.0) Red Blood Count 3.76 x10^6/uL (4.30-5.70) Hemoglobin 11.7 g/dL (13.0-17.5) Hematocrit 34.8 % (39.0-53.0) Mean Corpuscular Volume 93 fL (79-100) Mean Corpuscular Hemoglobin 31 pg (25-35) Mean Corpuscular Hemoglobin Concent 34 g/dL (31-37) Red Cell Distribution Width 13.1 % (11.5-14.5) Platelet Count 210 x10^3/uL (140-400) Neutrophils (%) (Auto) 61 % (31-73) Lymphocytes (%) (Auto) 26 % (24-48) Monocytes (%) (Auto) 11 % (0-9) Eosinophils (%) (Auto) 2 % (0-3) Basophils (%) (Auto) 0 % (0-3) Neutrophils # (Auto) 5.4 x10^3uL (1.8-7.7) Lymphocytes # (Auto) 2.3 x10^3/uL (1.0-4.8) Monocytes # (Auto) 0.9 x10^3/uL (0.0-1.1) Eosinophils # (Auto) 0.1 x10^3/uL (0.0-0.7) Basophils # (Auto) 0.0 x10^3/uL (0.0-0.2) Sodium Level 146 mmol/L (136-145) Potassium Level 3.4 mmol/L (3.5-5.1) Chloride Level 108 mmol/L (98-107) Carbon Dioxide Level 26 mmol/L (21-32) Anion Gap 12 (6-14) Blood Urea Nitrogen 29 mg/dL (8-26) Creatinine 1.3 mg/dL (0.7-1.3) Estimated GFR (Cockcroft-Gault) 55.1 Glucose Level 114 mg/dL (70-99) Calcium Level 8.5 mg/dL (8.5-10.1) Review of Systems Review of Systems Denies F/C Denies CP or SOA Denies N/V Admits to pain (back) Assessment and Plan Assessmemt and Plan Assessment: B/l LE cellulitis Chronic lymphedema of the LE extremities, draining wounds Neuropathy Leukocytosis Tinea pedis JOSE, Cr increased to 1.6 on 08/29/18 Plan: D/c today to [facility], if okay with subspecialists KCL 40 PO ordered Lasix 40 qday, Kidney function normalized today, 1.3 Monitor kidney function, assess fluid status, Strict I&O's PT lymphedema integrated specialist, encouraged pt to keep legs elevated On zosyn, Zyvox, and fluconazole; appreciate ID recommendations Neurosurgery consulted, conservative management, follows with Dr. Frias, MRI 2018 showing spinal stenosis, appreciate recommendations Echo 08/29 showing normal wall motion with trace TR, EF 55-60%, Regular diet Pain control, Rx written Home Rx PT/OT ordered Full Code Pt has refused CT imaging 2/2 inability to lie flat, discussed other options with pt Cont Zyvox/fluconazole/Zosyn for now - d/c Zyvox soon F/u labs and cults recommend conservative measures, Dr. Frias is following Problems Medical Problems: (1) Bilateral lower leg cellulitis Status: Acute (2) Lymphedema of extremity Status: Acute Comment Review of Relevant I have reviewed the following items otilio (where applicable) has been applied. Labs Laboratory Tests Test 08/28/18 12:50 08/29/18 04:10 08/30/18 03:15 HE-Vxj-K-Type Natriuretic Peptide 143 pg/mL (0-124) White Blood Count 11.6 x10^3/uL (4.0-11.0) 8.8 x10^3/uL (4.0-11.0) Red Blood Count 4.01 x10^6/uL (4.30-5.70) 3.76 x10^6/uL (4.30-5.70) Hemoglobin 12.8 g/dL (13.0-17.5) 11.7 g/dL (13.0-17.5) Hematocrit 36.6 % (39.0-53.0) 34.8 % (39.0-53.0) Mean Corpuscular Volume 91 fL (79-100) 93 fL (79-100) Mean Corpuscular Hemoglobin 32 pg (25-35) 31 pg (25-35) Mean Corpuscular Hemoglobin Concent 35 g/dL (31-37) 34 g/dL (31-37) Red Cell Distribution Width 13.2 % (11.5-14.5) 13.1 % (11.5-14.5) Platelet Count 209 x10^3/uL (140-400) 210 x10^3/uL (140-400) Neutrophils (%) (Auto) 76 % (31-73) 61 % (31-73) Lymphocytes (%) (Auto) 14 % (24-48) 26 % (24-48) Monocytes (%) (Auto) 9 % (0-9) 11 % (0-9) Eosinophils (%) (Auto) 1 % (0-3) 2 % (0-3) Basophils (%) (Auto) 0 % (0-3) 0 % (0-3) Neutrophils # (Auto) 8.8 x10^3uL (1.8-7.7) 5.4 x10^3uL (1.8-7.7) Lymphocytes # (Auto) 1.6 x10^3/uL (1.0-4.8) 2.3 x10^3/uL (1.0-4.8) Monocytes # (Auto) 1.1 x10^3/uL (0.0-1.1) 0.9 x10^3/uL (0.0-1.1) Eosinophils # (Auto) 0.1 x10^3/uL (0.0-0.7) 0.1 x10^3/uL (0.0-0.7) Basophils # (Auto) 0.0 x10^3/uL (0.0-0.2) 0.0 x10^3/uL (0.0-0.2) Sodium Level 142 mmol/L (136-145) 146 mmol/L (136-145) Potassium Level 3.5 mmol/L (3.5-5.1) 3.4 mmol/L (3.5-5.1) Chloride Level 105 mmol/L (98-107) 108 mmol/L (98-107) Carbon Dioxide Level 23 mmol/L (21-32) 26 mmol/L (21-32) Anion Gap 14 (6-14) 12 (6-14) Blood Urea Nitrogen 29 mg/dL (8-26) 29 mg/dL (8-26) Creatinine 1.6 mg/dL (0.7-1.3) 1.3 mg/dL (0.7-1.3) Estimated GFR (Cockcroft-Gault) 43.3 55.1 Glucose Level 126 mg/dL (70-99) 114 mg/dL (70-99) Calcium Level 8.4 mg/dL (8.5-10.1) 8.5 mg/dL (8.5-10.1) Laboratory Tests Test 08/30/18 03:15 White Blood Count 8.8 x10^3/uL (4.0-11.0) Red Blood Count 3.76 x10^6/uL (4.30-5.70) Hemoglobin 11.7 g/dL (13.0-17.5) Hematocrit 34.8 % (39.0-53.0) Mean Corpuscular Volume 93 fL (79-100) Mean Corpuscular Hemoglobin 31 pg (25-35) Mean Corpuscular Hemoglobin Concent 34 g/dL (31-37) Red Cell Distribution Width 13.1 % (11.5-14.5) Platelet Count 210 x10^3/uL (140-400) Neutrophils (%) (Auto) 61 % (31-73) Lymphocytes (%) (Auto) 26 % (24-48) Monocytes (%) (Auto) 11 % (0-9) Eosinophils (%) (Auto) 2 % (0-3) Basophils (%) (Auto) 0 % (0-3) Neutrophils # (Auto) 5.4 x10^3uL (1.8-7.7) Lymphocytes # (Auto) 2.3 x10^3/uL (1.0-4.8) Monocytes # (Auto) 0.9 x10^3/uL (0.0-1.1) Eosinophils # (Auto) 0.1 x10^3/uL (0.0-0.7) Basophils # (Auto) 0.0 x10^3/uL (0.0-0.2) Sodium Level 146 mmol/L (136-145) Potassium Level 3.4 mmol/L (3.5-5.1) Chloride Level 108 mmol/L (98-107) Carbon Dioxide Level 26 mmol/L (21-32) Anion Gap 12 (6-14) Blood Urea Nitrogen 29 mg/dL (8-26) Creatinine 1.3 mg/dL (0.7-1.3) Estimated GFR (Cockcroft-Gault) 55.1 Glucose Level 114 mg/dL (70-99) Calcium Level 8.5 mg/dL (8.5-10.1) Microbiology 08/27/18 Blood Culture - Preliminary, Resulted NO GROWTH AFTER 2 DAYS 08/27/18 Aerobic Culture - Preliminary, Resulted 08/27/18 Aerobic Culture Result 1 (ACACIA) - Preliminary, Resulted 08/27/18 Aerobic Culture Result 2 (ACACIA) - Preliminary, Resulted 08/27/18 Gram Stain - Final, Resulted 08/27/18 Gram Stain Result 1 (ACACIA) - Final, Resulted 08/27/18 Gram Stain Result 2 (ACACIA) - Final, Resulted Medications Current Medications Ondansetron HCl (Zofran) 4 mg PRN Q6HRS PRN IV NAUSEA/VOMITING 1ST CHOICE; Start 08/27/18 at 13:45 Prochlorperazine Edisylate (Compazine) 10 mg PRN Q6HRS PRN IV NAUSEA/VOMITING (2nd Choice); Start 08/27/18 at 13:45 Prochlorperazine (Compazine) 25 mg PRN Q12HR PRN HI NAUSEA/VOMITING; Start 08/27/18 at 14:00 Al Hydroxide/Mg Hydroxide (Mylanta Plus Xs) 30 ml PRN Q3HRS PRN PO HEARTBURN / GAS; Start 08/27/18 at 13:45 Calcium Carbonate/ Glycine (Tums) 500 mg PRN Q3HRS PRN PO UPSET STOMACH; Start 08/27/18 at 13:45 Zolpidem Tartrate (Ambien) 5 mg PRN QHS PRN PO INSOMNIA, MAY REPEAT IN 1HR Last administered on 08/28/18at 00:11; Start 08/27/18 at 13:45 Oxycodone HCl (Roxicodone) 5 mg PRN Q3HRS PRN PO MILD PAIN 2ND CHOICE; Start 08/27/18 at 13:45 Morphine Sulfate (Morphine Sulfate) 2 mg PRN Q2HR PRN IV MODERATE PAIN Last administered on 08/27/18at 17:06; Start 08/27/18 at 13:45 Ketorolac Tromethamine (Toradol 15mg Vial) 15 mg PRN Q6HRS PRN IV MILD PAIN; Start 08/27/18 at 13:45; Stop 08/29/18 at 09:33; Status DC Acetaminophen (Tylenol) 650 mg PRN Q6HRS PRN PO Headaches, Temp > 101.5F; Start 08/27/18 at 13:45 Magnesium Hydroxide (Milk Of Magnesia) 2,400 mg PRN Q12HR PRN PO CONSTIPATION; Start 08/27/18 at 13:45 Bisacodyl (Dulcolax Supp) 10 mg PRN DAILY PRN HI CONSTIPATION; Start 08/27/18 at 13:45 Furosemide (Lasix) 40 mg PRN DAILY PRN PO SWELLING; Start 08/27/18 at 13:45; Stop 08/27/18 at 14:06; Status DC Potassium Chloride (Klor-Con) 10 meq PRN DAILY PRN PO take with furosemide; Start 08/27/18 at 13:45 Tamsulosin HCl (Flomax) 0.4 mg QHS PO Last administered on 08/29/18at 21:18; Start 08/27/18 at 21:00 Non-Formulary Medication (Info (No Known Medications Prior To Admisstion)) 1 each DAILY MC ; Start 08/28/18 at 09:00; Status UNV Cefazolin Sodium 50 ml @ 100 mls/hr 1X ONCE IV Last administered on 08/27/18at 14:18; Start 08/27/18 at 14:15; Stop 08/27/18 at 14:44; Status DC Furosemide (Lasix) 40 mg [id number] IVP Last administered on 08/29/18at 08:31; Start 08/27/18 at 14:00; Stop 08/29/18 at 12:08; Status DC Vancomycin HCl (Vanco Per Pharmacy) 1 each PRN DAILY PRN MC SEE COMMENTS Last administered on 08/27/18at 17:40; Start 08/27/18 at 14:15; Stop 08/28/18 at 08:40; Status DC Piperacillin Sod/ Tazobactam Sod (Zosyn Per Pharmacy) 1 each PRN DAILY PRN MC SEE COMMENTS; Start 08/27/18 at 14:15 Baclofen (Lioresal) 20 mg TID PO Last administered on 08/30/18at 08:05; Start 08/27/18 at 21:00 Fentanyl Citrate (Fentanyl 2ml Vial) 50 mcg PRN Q2HR PRN IV SEVERE PAIN; Start 08/27/18 at 14:15 Oxycodone/ Acetaminophen (Percocet 5/325) 1 tab PRN Q4HRS PRN PO MILD PAIN Last administered on 08/28/18at 08:28; Start 08/27/18 at 14:15 Oxycodone/ Acetaminophen (Percocet 10/325) 1 tab PRN Q4HRS PRN PO MODERATE- SEVERE PAIN; Start 08/27/18 at 14:15 Piperacillin Sod/ Tazobactam Sod 3.375 gm/Sodium Chloride 50 ml @ 100 mls/hr Q6H IV Last administered on 08/30/18at 05:14; Start 08/27/18 at 17:00 Vancomycin HCl 2 gm/Sodium Chloride 500 ml @ 250 mls/hr 1X ONCE IV Last administered on 08/27/18at 17:06; Start 08/27/18 at 15:00; Stop 08/27/18 at 16:59; Status DC Lorazepam (Ativan) 2 mg 1X ONCE IV Last administered on 08/27/18at 15:05; Start 08/27/18 at 15:00; Stop 08/27/18 at 15:01; Status DC Morphine Sulfate (Morphine Sulfate) 4 mg 1X ONCE IV Last administered on 08/27/18 15:05; Start 08/27/18 at 15:00; Stop 08/27/18 at 15:01; Status DC Lorazepam (Ativan) 4 mg 1X ONCE IV ; Start 08/27/18 at 15:45; Stop 08/27/18 at 15:46; Status DC Fentanyl Citrate (Fentanyl 2ml Vial) 75 mcg 1X ONCE IV ; Start 08/27/18 at 15:45; Stop 08/27/18 at 15:46; Status DC Vancomycin HCl 2 gm/Sodium Chloride 500 ml @ 250 mls/hr Q12H IV Last administered on 08/28/18at 05:00; Start 08/28/18 at 05:00; Stop 08/28/18 at 08:40; Status DC Vancomycin HCl (Vancomycin Trough Level) 1 each 1X ONCE MC ; Start 08/29/18 at 04:30; Stop 08/29/18 at 04:31; Status Cancel Fluconazole (Diflucan) 200 mg DAILY PO Last administered on 08/30/18at 08:04; Start 08/28/18 at 09:00 Linezolid (Zyvox) 600 mg BID PO Last administered on 08/30/18at 08:04; Start 08/28/18 at 09:00 Ascorbic Acid (Vitamin C) 500 mg DAILY PO Last administered on 08/30/18 08:05; Start 08/28/18 at 11:30 Multivitamins (Thera M Plus) 1 tab DAILY PO Last administered on 08/30/18 08:05; Start 08/28/18 at 11:30 Lactobacillus Rhamnosus (Culturelle) 1 cap BID PO Last administered on 08/30/18 08:05; Start 08/28/18 at 21:00 Furosemide (Lasix) 40 mg DAILY IVP Last administered on 08/30/18 08:05; Start 08/30/18 at 09:00 Potassium Chloride (Klor-Con) 40 meq 1X ONCE PO Last administered on 08/30/18 08:05; Start 08/30/18 at 07:15; Stop 4/25/19 at 07:16; Status DC Active Scripts Active Potassium Chloride 10 Meq Tab.sr.24h 10 Meq PO DAILY PRN 30 Days Furosemide 40 Mg Tablet 1 Tab PO DAILY PRN 30 Days Flomax (Tamsulosin Hcl) 0.4 Mg Cap.er.24h 0.4 Mg PO QHS 30 Days Reported No Known Medications Prior To Admisstion (Info) Each 1 Each DAILY Vitals/I & O Vital Sign - Last 24 Hours 08/29/18 08/29/18 08/29/18 08/29/18 11:00 15:00 19:00 20:15 Temp 98.0 97.5 98.0 98.0 97.5 98.0 Pulse 76 77 76 Resp 18 18 18 B/P (MAP) 94/72 (79) 131/66 (87) 124/53 (76) Pulse Ox 95 96 97 O2 Delivery Room Air Room Air Room Air Room Air 08/29/18 08/30/18 08/30/18 08/30/18 23:00 02:58 07:00 08:00 Temp 97.9 98.0 98.1 97.9 98.0 98.1 Pulse 71 64 70 Resp 18 18 16 B/P (MAP) 136/62 (86) 127/79 (95) 136/47 (76) Pulse Ox 96 98 95 O2 Delivery Room Air Room Air Room Air Room Air Intake and Output 08/29/18 08/29/18 08/30/18 14:59 22:59 06:59 Intake Total 240 ml Output Total 300 ml Balance -300 ml 240 ml EMILIANO BRIAN III DO Aug 30, 2018 09:55
--- NOTE | 2018-08-30 10:29 | SNU/HH DC ---
DISCHARGE ORDERS DISCHARGE INFORMATION: FINAL DIAGNOSIS Problems Medical Problems: (1) Bilateral lower leg cellulitis Status: Acute (2) Lymphedema of extremity Status: Acute CONDITION ON DISCHARGE: Stable CODE STATUS: Code Status: Full USP: SNF STAY <30 DAYS: Yes HOSPICE: HOSPICE: No HOSPICE EVAL & TREAT: No LTAC: ADMIT TO LTAC: No POST DISCHARGE ORDERS: ACTIVITY ORDERS: Bedrest today DIET AFTER DISCHARGE: Cardiac WOUND/INCISION CARE: Ice to area for comfort TREATMENT/EQUIPMENT ORDERS: Occupational Therapy For: Evaluation/Treatment DISCHARGE MEDICATIONS: Home Meds Active Scripts Potassium Chloride (POTASSIUM CHLORIDE) 10 Meq Tab.sr.24h, 10 MEQ PO DAILY PRN for take with furosemide for 30 Days, #30 TAB.SR Prov:MIGUEL ANGEL AMBRIZ MD 04/19/18 Furosemide (FUROSEMIDE) 40 Mg Tablet, 1 TAB PO DAILY PRN for swelling for 30 Days, #30 TAB 5 Refills Prov:MIGUEL ANGEL AMBRIZ MD 04/19/18 Tamsulosin Hcl (FLOMAX) 0.4 Mg Cap.er.24h, 0.4 MG PO QHS for URINATION/Prostate for 30 Days, #30 CAP.SR 5 Refills Prov:MIGUEL ANGEL AMBRIZ MD 04/19/18 Reported Medications Info (NO KNOWN MEDICATIONS PRIOR TO ADMISSTION) Each, 1 EACH MC DAILY for no home meds, EACH 04/17/18 EMILIANO BRIAN III DO Aug 30, 2018 10:29
[2018-08-30 11:00] VITALS: BP 109/69
--- NOTE | 2018-08-30 11:53 | NUR ---
SW following. Discussed with RN, pt not ready to DC today due to waiting on sensitivities for abx. SNU referral sent to [facility], [place], SW awaiting acceptance and insurance auth. SW will continue to follow.
--- NOTE | 2018-08-30 13:57 | DS ---
DATE OF DISCHARGE: 08/30/2018 ADMISSION DIAGNOSIS: Infected foot ulcers. DISCHARGE DIAGNOSES: Resolving [id number] infected foot ulcers, severe peripheral edema and this has been chronic. Hypertension, history of back pain, left great toenail removed and two-pack per day smoker. PROCEDURES: None other than wound care. HOSPITAL COURSE: The patient is a pleasant 68-year-old male who has [id number] lymphedema and chronic venous stasis ulcers on his feet. He was admitted. We gave him IV antibiotics and did aggressive wound care. His creatinine was a little high at 1.6, we gave him fluids and consulted Nephrology, it is down to 1.3 this morning. Overall, he looks much better. He has been accepted at the [facility], we plan to discharge there. PHYSICAL EXAMINATION: When I examined him this morning: HEART: Tones were normal. LUNGS: Clear. EXTREMITIES: He had severe edema, which is chronic for him. PSYCHIATRIC: He was stable. DISPOSITION: Skilled. ACTIVITY: As tolerated. DIET: Low sodium. MEDICATIONS: Please see the MRAD. TOTAL TIME: 32 minutes. EMILIANO BRIAN DO DR: ELAYNE/vel JOB#: [id number] / [id number]
--- NOTE | 2018-08-30 14:20 | NUR ---
SW following. Pt has been clinically accepted at [facility], pending insurance approval. SW will continue to follow.
[2018-08-30 15:00] VITALS: BP 124/59
[2018-08-30 19:20] VITALS: BP 133/67
[2018-08-30] MEDS: TAMSULOSIN 0.4 MG CAP.ER.24H. PO SCH (21:16)
[2018-08-31 03:03] VITALS: BP 143/68
[2018-08-31] MEDS: PIPERACILLIN/TAZOBACTAM 3.375 GM in IV NORMAL SALINE 50ML 50 ML IV SCH ×2 (04:59→11:00)
[2018-08-31 05:28] LABS: BASO % 1 % (0-3); EOS # 0.2 x10^3/uL (0.0-0.7); EOS % 3 % (0-3); HEMATOCRIT 36.5 % (39.0-53.0); HEMOGLOBIN 12.5 g/dL (13.0-17.5); LYMPH # 1.9 x10^3/uL (1.0-4.8); LYMPH % 27 % (24-48); MEAN CORPUSCULAR HEMOGLOBIN 32 pg (25-35); MEAN CORPUSCULAR HGB CONC 34 g/dL (31-37); MEAN CORPUSCULAR VOLUME 93 fL (79-100); MONO # 0.7 x10^3/uL (0.0-1.1); MONO % 10 % (0-9); NEUT # 4.2 x10^3uL (1.8-7.7); NEUT % 59 % (31-73); PLATELET COUNT 234 x10^3/uL (140-400); RED BLOOD COUNT 3.94 x10^6/uL (4.30-5.70); RED CELL DISTRIBUTION WIDTH 13.3 % (11.5-14.5); WHITE BLOOD COUNT 7.1 x10^3/uL (4.0-11.0)
[2018-08-31 05:47] LABS: CALCIUM 8.9 mg/dL (8.5-10.1); CREATININE 1.3 mg/dL (0.7-1.3); GFR 55.1; POTASSIUM 3.4 mmol/L (3.5-5.1)
[2018-08-31 07:00] VITALS: BP 137/68
[2018-08-31] MEDS: LACTOBACILLUS RHAMNOSUS GG 1 CAPSULE. PO SCH (08:17)
[2018-08-31] MEDS: ASCORBIC ACID 500 MG TABLET PO SCH (08:17)
[2018-08-31] MEDS: BACLOFEN 10 MG TABLET. PO SCH ×2 (08:17→12:44)
[2018-08-31] MEDS: MULTIVITAMIN with MINERAL TABLET. PO SCH (08:17)
[2018-08-31] MEDS: FLUCONAZOLE 100 MG TABLET. PO SCH (08:17)
[2018-08-31] MEDS: FUROSEMIDE 40 MG/4 ML VIAL. IVP SCH (08:17)
[2018-08-31] MEDS: LINEZOLID 600 MG TABLET PO SCH (08:17)
[2018-08-31] MEDS ORDERED: POTASSIUM CHLORIDE 10 MEQ TABLET.ER. PO SCH (09:00)
[2018-08-31 11:00] VITALS: BP 152/64
--- NOTE | 2018-08-31 11:19 | PDOC ---
Infectious Disease Note Subjective Subjective Some better with less swelling -just dressed Back is better with ambulation No F/C/S/SOA/rash Vital Sign Vital Signs Vital Signs Date Time Temp Pulse Resp B/P (MAP) Pulse Ox O2 Delivery O2 Flow Rate FiO2 08/31/18 07:27 Room Air 08/31/18 07:00 97.4 59 18 137/68 (91) 94 97.4 Physical Exam PHYSICAL EXAM GENERAL: He is sitting in a chair. NAD/coop. HEENT: His pupils are equal and reactive. Normal conjunctivae. Oral cavity, pharynx was clear. NECK: Supple. Good range of motion. LUNGS: Clear to auscultation bilaterally. HEART: S1, S2. ABDOMEN: Obese, soft, no guarding, no rebound. BACK: Without any signs of gross inflammation. No redness or fullness. EXTREMITIES: He has bilateral lower extremity lymphedema with 3 + edema. His bilateral feet have erythema. There is less warmth. He has tinea on both his feet as well. SKIN: Without generalized rash. NEUROLOGIC: Nonfocal, answers questions. PSYCHIATRIC: Affect is appropriate Labs Lab Laboratory Tests Test 08/31/18 04:25 White Blood Count 7.1 x10^3/uL (4.0-11.0) Red Blood Count 3.94 x10^6/uL (4.30-5.70) Hemoglobin 12.5 g/dL (13.0-17.5) Hematocrit 36.5 % (39.0-53.0) Mean Corpuscular Volume 93 fL (79-100) Mean Corpuscular Hemoglobin 32 pg (25-35) Mean Corpuscular Hemoglobin Concent 34 g/dL (31-37) Red Cell Distribution Width 13.3 % (11.5-14.5) Platelet Count 234 x10^3/uL (140-400) Neutrophils (%) (Auto) 59 % (31-73) Lymphocytes (%) (Auto) 27 % (24-48) Monocytes (%) (Auto) 10 % (0-9) Eosinophils (%) (Auto) 3 % (0-3) Basophils (%) (Auto) 1 % (0-3) Neutrophils # (Auto) 4.2 x10^3uL (1.8-7.7) Lymphocytes # (Auto) 1.9 x10^3/uL (1.0-4.8) Monocytes # (Auto) 0.7 x10^3/uL (0.0-1.1) Eosinophils # (Auto) 0.2 x10^3/uL (0.0-0.7) Basophils # (Auto) 0.0 x10^3/uL (0.0-0.2) Sodium Level 144 mmol/L (136-145) Potassium Level 3.4 mmol/L (3.5-5.1) Chloride Level 107 mmol/L (98-107) Carbon Dioxide Level 26 mmol/L (21-32) Anion Gap 11 (6-14) Blood Urea Nitrogen 26 mg/dL (8-26) Creatinine 1.3 mg/dL (0.7-1.3) Estimated GFR (Cockcroft-Gault) 55.1 Glucose Level 106 mg/dL (70-99) Calcium Level 8.9 mg/dL (8.5-10.1) Micro AEROBIC RES 1 Final Comment Pseudomonas aeruginosa 1+ AEROBIC RES 2 Final Comment Beta hemolytic Streptococcus, group C 4+ Penicillin and ampicillin are drugs of choice for treatment of beta-hemolytic streptococcal infections. Susceptibility testing of penicillins and other beta-lactam agents approved by the FDA for treatment of beta-hemolytic streptococcal infections need not be performed routinely because nonsusceptible isolates are extremely rare in any beta-hemolytic streptococcus and have not been reported for Streptococcus pyogenes (group A). (CLSI) ANTIMICROBIAL SUSCEPTIBILITY Final Comment S = Susceptible; I = Intermediate; R = Resistant P = Positive; N = Negative MICS are expressed in micrograms per mL Antibiotic RSLT#1 RSLT#2 RSLT#3 RSLT#4 Amikacin S<=2 Cefepime S<=1 Ceftazidime S =4 Ciprofloxacin S<=0.25 Gentamicin S<=1 Imipenem S =2 Levofloxacin S =1 Meropenem S =0.5 Piperacillin S<=4 CONTINUED ON NEXT PAGE RUN DATE: 08/30/18 PAGE 2 RUN TIME: 1613 [facility] [address] [place] [address] Taylor Figueroa M.D., Test Development Engineer ------ SPEC: [id number] PATIENT: TAYLOR ACOSTA [id number] (Continued) Procedure Result ANTIMICROBIAL SUSCEPTIBILITY Final (continued) Ticarcillin S =32 Tobramycin S<=1 Objective Assessment Leukocytosis - stable JOSE Lymphedema LE cellulitis - Pseudomonas/Group C sensitivities are pending Tinea Cat exposure - "lays on his feet" Denies known bites/scratches or licking Plan Plan of Care Discont Zyvox/fluconazole/Zosyn Home on Levofloxacin for 7 days to get PSA and strep C f/u wound care Reviewed risks or abx including tendon complications including rupture and Aortic aneurysm. Alternative is IV which he does not want D/w nursing TARIK CHILDERS MD Aug 31, 2018 11:19
--- NOTE | 2018-08-31 11:21 | PDOC ---
PROGRESS NOTES Chief Complaint Chief Complaint LE wounds since April in the setting of chronic lymphedema History of Present Illness History of Present Illness Pt seen and examined this morning, resting comfortably in chair NAD He states he is improving today. His legs are less weepy. Vitals Vitals Vital Signs Date Time Temp Pulse Resp B/P (MAP) Pulse Ox O2 Delivery O2 Flow Rate FiO2 08/31/18 07:27 Room Air 08/31/18 07:00 97.4 59 18 137/68 (91) 94 97.4 Physical Exam General: Alert, Oriented X3, Cooperative, No acute distress Heart: Regular rate, Normal S1, Normal S2, No murmurs Lungs: Clear (No wheezes, rales or rhonci), Other (No crackels or wheezing) Abdomen: Soft, No tenderness, No masses Extremities: Other (LE edema, dressings C/D/I, Tienia B/l LE) Skin: Other (severe lower extremity tight pitting edema, red swollen, no open lesions, draining, LE dressings ) Labs LABS Laboratory Tests Test 08/31/18 04:25 White Blood Count 7.1 x10^3/uL (4.0-11.0) Red Blood Count 3.94 x10^6/uL (4.30-5.70) Hemoglobin 12.5 g/dL (13.0-17.5) Hematocrit 36.5 % (39.0-53.0) Mean Corpuscular Volume 93 fL (79-100) Mean Corpuscular Hemoglobin 32 pg (25-35) Mean Corpuscular Hemoglobin Concent 34 g/dL (31-37) Red Cell Distribution Width 13.3 % (11.5-14.5) Platelet Count 234 x10^3/uL (140-400) Neutrophils (%) (Auto) 59 % (31-73) Lymphocytes (%) (Auto) 27 % (24-48) Monocytes (%) (Auto) 10 % (0-9) Eosinophils (%) (Auto) 3 % (0-3) Basophils (%) (Auto) 1 % (0-3) Neutrophils # (Auto) 4.2 x10^3uL (1.8-7.7) Lymphocytes # (Auto) 1.9 x10^3/uL (1.0-4.8) Monocytes # (Auto) 0.7 x10^3/uL (0.0-1.1) Eosinophils # (Auto) 0.2 x10^3/uL (0.0-0.7) Basophils # (Auto) 0.0 x10^3/uL (0.0-0.2) Sodium Level 144 mmol/L (136-145) Potassium Level 3.4 mmol/L (3.5-5.1) Chloride Level 107 mmol/L (98-107) Carbon Dioxide Level 26 mmol/L (21-32) Anion Gap 11 (6-14) Blood Urea Nitrogen 26 mg/dL (8-26) Creatinine 1.3 mg/dL (0.7-1.3) Estimated GFR (Cockcroft-Gault) 55.1 Glucose Level 106 mg/dL (70-99) Calcium Level 8.9 mg/dL (8.5-10.1) Review of Systems Review of Systems Patient is still having some swelling in his legs but states they are getting better. He denies fevers, chills, N/V, CP, SOB, diarrhea. 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 Frias, MRI 2018 showing spinal stenosis, appreciate recommendations Echo 08/29 showing normal wall motion with trace TR, EF 55-60%, Regular diet Pain control, Rx written Home Rx PT/OT ordered Full Code Pt has refused CT imaging 2/ inability to lie flat, discussed other options with pt DC today with home health Comment Review of Relevant I have reviewed the following items otilio (where applicable) has been applied. Labs Laboratory Tests Test 08/30/18 03:15 08/31/18 04:25 White Blood Count 8.8 x10^3/uL (4.0-11.0) 7.1 x10^3/uL (4.0-11.0) Red Blood Count 3.76 x10^6/uL (4.30-5.70) 3.94 x10^6/uL (4.30-5.70) Hemoglobin 11.7 g/dL (13.0-17.5) 12.5 g/dL (13.0-17.5) Hematocrit 34.8 % (39.0-53.0) 36.5 % (39.0-53.0) Mean Corpuscular Volume 93 fL (79-100) 93 fL (79-100) Mean Corpuscular Hemoglobin 31 pg (25-35) 32 pg (25-35) Mean Corpuscular Hemoglobin Concent 34 g/dL (31-37) 34 g/dL (31-37) Red Cell Distribution Width 13.1 % (11.5-14.5) 13.3 % (11.5-14.5) Platelet Count 210 x10^3/uL (140-400) 234 x10^3/uL (140-400) Neutrophils (%) (Auto) 61 % (31-73) 59 % (31-73) Lymphocytes (%) (Auto) 26 % (24-48) 27 % (24-48) Monocytes (%) (Auto) 11 % (0-9) 10 % (0-9) Eosinophils (%) (Auto) 2 % (0-3) 3 % (0-3) Basophils (%) (Auto) 0 % (0-3) 1 % (0-3) Neutrophils # (Auto) 5.4 x10^3uL (1.8-7.7) 4.2 x10^3uL (1.8-7.7) Lymphocytes # (Auto) 2.3 x10^3/uL (1.0-4.8) 1.9 x10^3/uL (1.0-4.8) Monocytes # (Auto) 0.9 x10^3/uL (0.0-1.1) 0.7 x10^3/uL (0.0-1.1) Eosinophils # (Auto) 0.1 x10^3/uL (0.0-0.7) 0.2 x10^3/uL (0.0-0.7) Basophils # (Auto) 0.0 x10^3/uL (0.0-0.2) 0.0 x10^3/uL (0.0-0.2) Sodium Level 146 mmol/L (136-145) 144 mmol/L (136-145) Potassium Level 3.4 mmol/L (3.5-5.1) 3.4 mmol/L (3.5-5.1) Chloride Level 108 mmol/L (98-107) 107 mmol/L (98-107) Carbon Dioxide Level 26 mmol/L (21-32) 26 mmol/L (21-32) Anion Gap 12 (6-14) 11 (6-14) Blood Urea Nitrogen 29 mg/dL (8-26) 26 mg/dL (8-26) Creatinine 1.3 mg/dL (0.7-1.3) 1.3 mg/dL (0.7-1.3) Estimated GFR (Cockcroft-Gault) 55.1 55.1 Glucose Level 114 mg/dL (70-99) 106 mg/dL (70-99) Calcium Level 8.5 mg/dL (8.5-10.1) 8.9 mg/dL (8.5-10.1) Laboratory Tests Test 08/31/18 04:25 White Blood Count 7.1 x10^3/uL (4.0-11.0) Red Blood Count 3.94 x10^6/uL (4.30-5.70) Hemoglobin 12.5 g/dL (13.0-17.5) Hematocrit 36.5 % (39.0-53.0) Mean Corpuscular Volume 93 fL (79-100) Mean Corpuscular Hemoglobin 32 pg (25-35) Mean Corpuscular Hemoglobin Concent 34 g/dL (31-37) Red Cell Distribution Width 13.3 % (11.5-14.5) Platelet Count 234 x10^3/uL (140-400) Neutrophils (%) (Auto) 59 % (31-73) Lymphocytes (%) (Auto) 27 % (24-48) Monocytes (%) (Auto) 10 % (0-9) Eosinophils (%) (Auto) 3 % (0-3) Basophils (%) (Auto) 1 % (0-3) Neutrophils # (Auto) 4.2 x10^3uL (1.8-7.7) Lymphocytes # (Auto) 1.9 x10^3/uL (1.0-4.8) Monocytes # (Auto) 0.7 x10^3/uL (0.0-1.1) Eosinophils # (Auto) 0.2 x10^3/uL (0.0-0.7) Basophils # (Auto) 0.0 x10^3/uL (0.0-0.2) Sodium Level 144 mmol/L (136-145) Potassium Level 3.4 mmol/L (3.5-5.1) Chloride Level 107 mmol/L (98-107) Carbon Dioxide Level 26 mmol/L (21-32) Anion Gap 11 (6-14) Blood Urea Nitrogen 26 mg/dL (8-26) Creatinine 1.3 mg/dL (0.7-1.3) Estimated GFR (Cockcroft-Gault) 55.1 Glucose Level 106 mg/dL (70-99) Calcium Level 8.9 mg/dL (8.5-10.1) Microbiology 08/27/18 Blood Culture - Preliminary, Resulted NO GROWTH AFTER 3 DAYS 08/27/18 Aerobic Culture - Final, Complete 08/27/18 Aerobic Culture Result 1 (ACACIA) - Final, Complete 08/27/18 Aerobic Culture Result 2 (ACACIA) - Final, Complete 08/27/18 Antimicrobic Susceptibility - Final, Complete 08/27/18 Gram Stain - Final, Complete 08/27/18 Gram Stain Result 1 (ACACIA) - Final, Complete 08/27/18 Gram Stain Result 2 (ACACIA) - Final, Complete Medications Current Medications Ondansetron HCl (Zofran) 4 mg PRN Q6HRS PRN IV NAUSEA/VOMITING 1ST CHOICE; Start 08/27/18 at 13:45 Prochlorperazine Edisylate (Compazine) 10 mg PRN Q6HRS PRN IV NAUSEA/VOMITING (2nd Choice); Start 08/27/18 at 13:45 Prochlorperazine (Compazine) 25 mg PRN Q12HR PRN WI NAUSEA/VOMITING; Start 08/27/18 at 14:00 Al Hydroxide/Mg Hydroxide (Mylanta Plus Xs) 30 ml PRN Q3HRS PRN PO HEARTBURN / GAS; Start 08/27/18 at 13:45 Calcium Carbonate/ Glycine (Tums) 500 mg PRN Q3HRS PRN PO UPSET STOMACH; Start 08/27/18 at 13:45 Zolpidem Tartrate (Ambien) 5 mg PRN QHS PRN PO INSOMNIA, MAY REPEAT IN 1HR Last administered on 08/28/18at 00:11; Start 08/27/18 at 13:45 Oxycodone HCl (Roxicodone) 5 mg PRN Q3HRS PRN PO MILD PAIN 2ND CHOICE; Start 08/27/18 at 13:45 Morphine Sulfate (Morphine Sulfate) 2 mg PRN Q2HR PRN IV MODERATE PAIN Last administered on 08/27/18at 17:06; Start 08/27/18 at 13:45 Ketorolac Tromethamine (Toradol 15mg Vial) 15 mg PRN Q6HRS PRN IV MILD PAIN; Start 08/27/18 at 13:45; Stop 08/29/18 at 09:33; Status DC Acetaminophen (Tylenol) 650 mg PRN Q6HRS PRN PO Headaches, Temp > 101.5F; Start 08/27/18 at 13:45 Magnesium Hydroxide (Milk Of Magnesia) 2,400 mg PRN Q12HR PRN PO CONSTIPATION; Start 08/27/18 at 13:45 Bisacodyl (Dulcolax Supp) 10 mg PRN DAILY PRN [place] CONSTIPATION; Start 08/27/18 at 13:45 Furosemide (Lasix) 40 mg PRN DAILY PRN PO SWELLING; Start 08/27/18 at 13:45; Stop 08/27/18 at 14:06; Status DC Potassium Chloride (Klor-Con) 10 meq PRN DAILY PRN PO take with furosemide; Start 08/27/18 at 13:45; Stop 08/30/18 at 12:36; Status DC Tamsulosin HCl (Flomax) 0.4 mg QHS PO Last administered on 08/30/18at 21:16; Start 08/27/18 at 21:00 Non-Formulary Medication (Info (No Known Medications Prior To Admisstion)) 1 each DAILY MC ; Start 08/28/18 at 09:00; Status UNV Cefazolin Sodium 50 ml @ 100 mls/hr 1X ONCE IV Last administered on 08/27/18at 14:18; Start 08/27/18 at 14:15; Stop 08/27/18 at 14:44; Status DC Furosemide (Lasix) 40 mg [id number] IVP Last administered on 08/29/18at 08:31; Start 08/27/18 at 14:00; Stop 08/29/18 at 12:08; Status DC Vancomycin HCl (Vanco Per Pharmacy) 1 each PRN DAILY PRN MC SEE COMMENTS Last administered on 08/27/18at 17:40; Start 08/27/18 at 14:15; Stop 08/28/18 at 08:40; Status DC Piperacillin Sod/ Tazobactam Sod (Zosyn Per Pharmacy) 1 each PRN DAILY PRN MC SEE COMMENTS; Start 08/27/18 at 14:15 Baclofen (Lioresal) 20 mg TID PO Last administered on 08/31/18at 08:17; Start 08/27/18 at 21:00 Fentanyl Citrate (Fentanyl 2ml Vial) 50 mcg PRN Q2HR PRN IV SEVERE PAIN; Start 08/27/18 at 14:15 Oxycodone/ Acetaminophen (Percocet 5/325) 1 tab PRN Q4HRS PRN PO MILD PAIN Last administered on 08/28/18at 08:28; Start 08/27/18 at 14:15 Oxycodone/ Acetaminophen (Percocet 10/325) 1 tab PRN Q4HRS PRN PO MODERATE-SE ARNULFO PAIN; Start 08/27/18 at 14:15 Piperacillin Sod/ Tazobactam Sod 3.375 gm/Sodium Chloride 50 ml @ 100 mls/hr Q6H IV Last administered on 08/31/18at 04:59; Start 08/27/18 at 17:00 Vancomycin HCl 2 gm/Sodium Chloride 500 ml @ 250 mls/hr 1X ONCE IV Last administered on 08/27/18at 17:06; Start 08/27/18 at 15:00; Stop 08/27/18 at 16:59; Status DC Lorazepam (Ativan) 2 mg 1X ONCE IV Last administered on 08/27/18at 15:05; Start 08/27/18 at 15:00; Stop 08/27/18 at 15:01; Status DC Morphine Sulfate (Morphine Sulfate) 4 mg 1X ONCE IV Last administered on 08/27/18at 15:05; Start 08/27/18 at 15:00; Stop 08/27/18 at 15:01; Status DC Lorazepam (Ativan) 4 mg 1X ONCE IV ; Start 08/27/18 at 15:45; Stop 08/27/18 at 15:46; Status DC Fentanyl Citrate (Fentanyl 2ml Vial) 75 mcg 1X ONCE IV ; Start 08/27/18 at 15:45; Stop 08/27/18 at 15:46; Status DC Vancomycin HCl 2 gm/Sodium Chloride 500 ml @ 250 mls/hr Q12H IV Last administered on 08/28/18at 05:00; Start 08/28/18 at 05:00; Stop 08/28/18 at 08:40; Status DC Vancomycin HCl (Vancomycin Trough Level) 1 each 1X ONCE MC ; Start 08/29/18 at 04:30; Stop 08/29/18 at 04:31; Status Cancel Fluconazole (Diflucan) 200 mg DAILY PO Last administered on 08/31/18at 08:17; Start 08/28/18 at 09:00 Linezolid (Zyvox) 600 mg BID PO Last administered on 08/31/18at 08:17; Start 08/28/18 at 09:00 Ascorbic Acid (Vitamin C) 500 mg DAILY PO Last administered on 08/31/18at 08:17; Start 08/28/18 at 11:30 Multivitamins (Thera M Plus) 1 tab DAILY PO Last administered on 08/31/18at 08:17; Start 08/28/18 at 11:30 Lactobacillus Rhamnosus (Culturelle) 1 cap BID PO Last administered on 08/31/18at 08:17; Start 08/28/18 at 21:00 Furosemide (Lasix) 40 mg DAILY IVP Last administered on 08/31/18at 08:17; Start 08/30/18 at 09:00 Potassium Chloride (Klor-Con) 40 meq 1X ONCE PO Last administered on 08/30/18at 08:05; Start 08/30/18 at 07:15; Stop 08/30/18 at 07:16; Status DC Potassium Chloride (Klor-Con) 10 meq DAILY PO Last administered on 08/31/18at 08:17; Start 08/31/18 at 09:00 Active Scripts Active Potassium Chloride 10 Meq Tab.sr.24h 10 Meq PO DAILY PRN 30 Days Furosemide 40 Mg Tablet 1 Tab PO DAILY PRN 30 Days Flomax (Tamsulosin Hcl) 0.4 Mg Cap.er.24h 0.4 Mg PO QHS 30 Days Reported No Known Medications Prior To Admisstion (Info) Each 1 Each DAILY Vitals/I & O Vital Sign - Last 24 Hours 08/30/18 08/30/18 08/30/18 08/31/18 15:00 19:20 20:00 03:03 Temp 97.7 97.8 97.7 97.7 97.8 97.7 Pulse 65 64 65 Resp 16 18 18 B/P (MAP) 124/59 (80) 133/67 (89) 143/68 (93) Pulse Ox 96 99 94 O2 Delivery Room Air Room Air Room Air Room Air 08/31/18 08/31/18 07:00 07:27 Temp 97.4 97.4 Pulse 59 Resp 18 B/P (MAP) 137/68 (91) Pulse Ox 94 O2 Delivery Room Air Room Air Intake and Output 08/30/18 08/30/18 08/31/18 15:00 23:00 07:00 Intake Total 480 ml Output Total 500 ml Balance -20 ml EMILIANO BRIAN III DO Aug 31, 2018 11:21
--- NOTE | 2018-08-31 12:02 | SNU/HH DC ---
DISCHARGE WITH HOME HEALTH DISCHARGE INFORMATION: Final Diagnosis: Problems Medical Problems: (1) Bilateral lower leg cellulitis Status: Acute (2) Lymphedema of extremity Status: Acute Condition on Discharge: Stable CODE STATUS: Code Status: Full HOME HEALTH: Face to Face: I certify this patient is under my care and that I, or a nurse practitioner or physician's assistant to the vice president working with me, had a face to face encounter that meets the physician face to face encounter requirements with this patient on []. Medical Complications: DJD, Other (edema) RN For Eval/Treatment: Yes Physical Therapy For: Evalulation/Treatment Occupational Therapy For: Evaluation/Treatment Home Health Aide For: Self-care BLEND TECHNICIAN For: Community Resources Pt Meets Homebound Status: Poor coordination w/ amb. POST DISCHARGE ORDERS: Activity Instructions for Disc: Bedrest today DIET AFTER DISCHARGE: Cardiac Wound/Incision Care: Ice to area for comfort CERTIFICATION STATEMENT: Certification Statement: Certification Statement: Based on the above finding, I certify that this patient is confined to the home and needs intermittent residential care, physical t herapy and/or speech therapy, or continues to need occupational therapy.~ This patient is under my care, and I have initiated the establishment of the plan of care.~ This patient will be followed by myself or a community physician who will periodically review the plan of care. Home Meds Active Scripts Potassium Chloride (POTASSIUM CHLORIDE) 10 Meq Tab.sr.24h, 10 MEQ PO DAILY PRN for take with furosemide for 30 Days, #30 TAB.SR Prov:MIGUEL ANGEL AMBRIZ MD 04/19/18 Furosemide (FUROSEMIDE) 40 Mg Tablet, 1 TAB PO DAILY PRN for swelling for 30 Days, #30 TAB 5 Refills Prov:MIGUEL ANGEL AMBRIZ MD 04/19/18 Tamsulosin Hcl (FLOMAX) 0.4 Mg Cap.er.24h, 0.4 MG PO QHS for URINATION/Prostate for 30 Days, #30 CAP.SR 5 Refills Prov:MIGUEL ANGEL AMBRIZ MD 04/19/18 Reported Medications Info (NO KNOWN MEDICATIONS PRIOR TO ADMISSTION) Each, 1 EACH MC DAILY for no home meds, EACH 04/17/18 EMILIANO BRIAN III DO Aug 31, 2018 12:02
--- NOTE | 2018-08-31 12:05 | PDOC3 ---
[facility]-Discharge Summary Date of Admission: Date of Admission: Aug 27, 2018 Date of Discharge: Date of Discharge: Aug 31, 2018 Admission Diagnosis: Admitting Diagnosis: Bilateral lower extremity swelling and cellulitis Discharge Diagnosis: Discharge Diagnosis: Chronic lymphedema with underlying cellulitis Consults: Consults: Infectious disease and wound care nurse Procedures: Procedures: None Hospital Course: Hospital Course: Patient is a elderly male who has chronic lymphedema for many years has now become impressively infected We admitted the patient and gave him IV antibiotics and aggressive wound care reconsult infectious disease and the wound care nurses Over the past few days he has improved although he still has chronic lymphedema I saw and examined the patient was mowing his heart tones were normal his lungs were clear extremities had clean dry intact dressing I discussed case with the nurse Dr. Finley just throat and biotic prescriptions We plan to discharge the patient home with home health's line Disposition: Disposition/Orders: D/C to Home Activity: Activity: Resume previous activity Diet: Diet: Regular Medications: Home Meds Active Scripts Potassium Chloride (POTASSIUM CHLORIDE) 10 Meq Tab.sr.24h, 10 MEQ PO DAILY PRN for take with furosemide for 30 Days, #30 TAB.SR Prov:MIGUEL ANGEL AMBRIZ MD 04/19/18 Furosemide (FUROSEMIDE) 40 Mg Tablet, 1 TAB PO DAILY PRN for swelling for 30 Days, #30 TAB 5 Refills Prov:MIGUEL ANGEL AMBRIZ MD 04/19/18 Tamsulosin Hcl (FLOMAX) 0.4 Mg Cap.er.24h, 0.4 MG PO QHS for URINATION/Prostate for 30 Days, #30 CAP.SR 5 Refills Prov:MIGUEL ANGEL AMBRIZ MD 04/19/18 Reported Medications Info (NO KNOWN MEDICATIONS PRIOR TO ADMISSTION) Each, 1 EACH MC DAILY for no home meds, EACH 04/17/18 Scheduled Info (No Known Medications Prior To Admisstion), 1 EACH MC DAILY, (Reported) Tamsulosin Hcl (Flomax), 0.4 MG PO QHS Scheduled PRN Furosemide (Furosemide), 1 TAB PO DAILY PRN for swelling Potassium Chloride (Potassium Chloride), 10 MEQ PO DAILY PRN for take with furosemide Total Time: Total Time: 34 minutes EMILIANO BRIAN III, DO Aug 31, 2018 12:05
--- NOTE | 2018-08-31 12:26 | NUR ---
[facility] following. Discussed with RN. BURAK met with pt, pt no longer wanting to go to SNU, instead wanting to go home with home health. Pt does not have a preference, just one that has lymphedema OT and takes his insurance. [facility] faxed referral to [facility]. Pt is going home on PO abx. RN notified.
--- NOTE | 2018-08-31 14:10 | NUR ---
Discharge Note: TAYLOR ACOSTA Discharge instructions and discharge home medications reviewed with Patient and a copy given. All questions have been answered and understanding verbalized. The following instructions and handouts were given: information about cellulitis and lymphedema. Discontinued lines and drains: IV line in right forearm removed, catheter tip intact. Patient discharged to home with home health with granddaughter, patient ambulated with walker to discharge vehicle.
[2018-10-10] MEDS ORDERED: BACL20TA PO (14:46)
[2018-10-10] MEDS ORDERED: DICL75TA PO (14:46)
== END 2018-08-31 14:10 | disposition home health service (06) | DRG 602 ==
LOC: ER 12:30 → 4 NORTH 13:33
PROVIDERS: ADMIT Internal Medicine; ATTEND Internal Medicine
DX: L03.115 Cellulitis of right lower limb (principal); I50.33 Acute on chronic diastolic (congestive) heart failure; N17.9 Acute kidney failure, unspecified; L03.116 Cellulitis of left lower limb; B35.9 Dermatophytosis, unspecified; I11.0 Hypertensive heart disease with heart failure; I89.0 Lymphedema, not elsewhere classified; G62.9 Polyneuropathy, unspecified; N40.1 Benign prostatic hyperplasia with lower urinary tract symptoms; R33.8 Other retention of urine; G89.29 Other chronic pain; M54.5 Low back pain; I10 Essential (primary) hypertension; Z53.20 Procedure and treatment not carried out because of patient's decision for unspecified reasons; E66.01 Morbid (severe) obesity due to excess calories; M48.00 Spinal stenosis, site unspecified; Z68.39 Body mass index [BMI] 39.0-39.9, adult; Z87.891 Personal history of nicotine dependence; Z82.49 Family history of ischemic heart disease and other diseases of the circulatory system; I83.015 Varicose veins of right lower extremity with ulcer other part of foot
CPT/HCPCS: 36415; 73630; 80048; 80053; 81001; 83605; 83880; 85025; 85610; 85651; 85730; 87040; 87070; 87186; 93306; 96365; 96375; J0690; J1940; J2060; J2270; J2543; J3370; J7040; 97110; 97140; 97530; 97535; 99285-25

== ENCOUNTER → 2018-10-10 | Outpatient (CLI) | payer OTHER ==
[~2018-10-10] MED LIST changes: +BACL20TA PO; +DICL75TA PO
--- NOTE | 2018-10-11 07:38 | PAIN ---
DATE OF SERVICE: 10/10/2018 INITIAL CONSULTATION FOR PAIN CLINIC CHIEF COMPLAINT: Low back and left lower extremity pain. HISTORY OF PRESENT ILLNESS: This is a 68-year-old male who presents with history of pain in low back, left lower extremity for about 2 years, getting worse with time making it more difficult for him to walk. He is using a walker currently. 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 The patient reports occasional spasms from the low back and leg into the upper back, mid back and into the left shoulder even into the arm, mostly in the low back and left leg, mostly in posterior gluteus, posterior thigh, posterior calf and into the foot with tingling and numbness into the toes on the left side all of the toes. The patient reports it is becoming more constant, worse with walking, standing, changing positions, better with sitting, better with lying down. It awakens him still about 3-5 times at night from sleep. The patient reports he is using a walker to ambulate as it does affect his ability to walk and does affect his bowel and bladder control, but no incontinence. The patient has done physical therapy, still does the physical therapy and exercises on his own at home. He has had some trigger point injections too, which were not helpful and the therapy was helpful to a mild extent and he has been doing that up until the last month and is doing on his own now. The patient has tried baclofen as well as diclofenac, which helped to a mild extent, maybe 10% on each of those. The patient did have an MRI scan of the lumbar spine showing multilevel degenerative changes with degenerative disk disease throughout the lumbar spine, mild to moderate central spinal canal stenosis at L4-L5, mild to moderate right neural foraminal stenosis, L5-S1 with disk space, generalized disk bulge eccentric to the left at L5-S1. The patient reports a disability rate from 0-10, 10 being the worst, is a 6 with family and home responsibilities, recreation, social activity, occupation, 8 with sexual behavior, 7 with self-care, 9 with life support activities, especially sleeping. PAST MEDICAL HISTORY: Significant for arthritis, lymphedema in the bilateral lower extremities, history of cellulitis in the lower extremities. PAST SURGICAL HISTORY: No previous surgeries. CURRENT MEDICATIONS: Include Lasix, tamsulosin, baclofen and diclofenac. ALLERGIES: The patient has no known drug allergies. FAMILY HISTORY: Significant for no major medical problems or conditions that he lists. SOCIAL HISTORY: The patient drinks alcohol about 6-7 beers in a year. Does not smoke consistently, but has smoked on and off over his whole life, currently is not smoking, although he reports he will quit for 4-5 years and then take it up for 4-5 years and then quit again. Currently, he is not smoking. The patient reports he is not using illegal, illicit or recreational drugs. He is and lives with his spouse, lives locally in [place], [place]. 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 REVIEW OF SYSTEMS: The patient's review of systems is positive for those items mentioned in history of present illness. All systems reviewed and otherwise negative. It is complete, full and well documented on the patient's chart. PHYSICAL EXAMINATION: VITAL SIGNS: Today, the patient's blood pressure is 144/72, pulse 61, respirations 16, temperature 98.0 degrees Fahrenheit. Height 6 feet 2 inches, weight is 305 pounds. GENERAL: The patient is awake, alert, oriented, appropriate, very pleasant demeanor. HEENT: Head is normocephalic, atraumatic. Extraocular movements are intact and symmetrical. Oral cavity: Mucous membranes are moist and pink. Dentition is intact. NECK: Shows anterior throat supple without palpable lymphadenopathy noted. Swallow reflex symmetrical. CHEST: Shows normal on inspection. Breath sounds are clear to auscultation bilaterally. No rales, rhonchi or wheezes auscultated. HEART: Shows S1, S2 clear. No murmurs auscultated. ABDOMEN: Soft, obese, nontender, nondistended. No palpable organomegaly is noted. No rebound or guarding demonstrated. BACK: Shows spine grossly in the midline. Normal appearing thoracic kyphosis and lumbar lordotic curvatures. No previous surgical scars are noted. Lumbar paraspinous muscle shows symmetrical on inspection, on palpation shows some moderate tenderness diffusely, but only diffusely without radiation. The patient has good rotational motion of lumbar spine. No tenderness over the spinous process, sacrum or sacroiliac regions, slightly tender on the left, but not the right at the posterior superior iliac spine, but not over the sacroiliac joint itself or over the sacrum itself. EXTREMITIES: Lower extremities show deep tendon reflexes at 1+ in the patellar and tendo calcaneus tendons are equal. Motor exam is strong with 5/5 dorsiflexion, extension, quadriceps and hamstring flexion. Peripheral pulses are not palpable secondary to significant edema in the posterior tibial distribution. Edema is significant approximately 3-4+ to two-thirds distance to the knee on anterior tibia bilaterally. The patient's straight leg is raise noted to be positive on the left at about 40 degrees, decreased with knee flexion, right side is negative. Gaenslen's and Mahad's maneuvers are negative bilaterally. The patient is able to stand, has difficulty rising from a seated position; however, he uses his arms of the chair consistently and significantly to support his weight and using a walker to ambulate with a very shuffling slow deliberate gait. SKIN: Warm and dry, good turgor. No sores, rashes or bruising. IMPRESSION: 1. This is a 68-year-old male with a long history of approximately 2 years of increasing pain in the low back, left lower extremity in a radicular pattern and L5-S1 dermatomal distribution. 2. MRI scan of lumbar spine as noted. 3. Bilateral lower extremity lymphedema. 4. Arthritis. PLAN: Options were discussed with the patient including conservative medical management, continued physical therapy as well as interventional technique. He would like to pursue interventional techniques. We discussed a lumbar epidural steroid injection using description as well as anatomical models to describe the procedure. The patient would like to proceed with this. We will wait for preauthorization with patient's insurance provider and have him return once this is obtained. The patient in the meantime will continue with his physical therapy exercises, strengthening and stretching as he is doing at home and we will have him follow up for lumbar epidural steroid injection as scheduled at the L5-S1 level for L5-S1 left lumbar radiculopathy. RENETTA BARRAZA MD DR: ZAIDA/vel JOB#: [id number] / [id number] CICI Golden MD
== END | disposition home or self-care (01) ==
LOC: PNCL 12:39
PROVIDERS: ATTEND Anesthesiology
DX: M79.662 Pain in left lower leg (principal); I89.0 Lymphedema, not elsewhere classified; M19.90 Unspecified osteoarthritis, unspecified site; Z79.899 Other long term (current) drug therapy
CPT/HCPCS: G0463

== ENCOUNTER → 2018-10-24 | Outpatient (CLI) | payer OTHER ==
[~2018-10-24] MED LIST changes: +AMIT25TA PO; +IOHEXOL 180 MG/ML 10 ML VIAL. ONE; +TIZA4TAB PO; +methylPREDNISolone ACETATE 40 MG/ML VIAL. ONE; +methylPREDNISolone ACETATE 80 MG/ML VIAL. ONE
--- NOTE | 2018-10-24 21:24 | PAIN ---
DATE OF SERVICE: 10/24/2018 PROGRESS NOTE FOR PAIN CLINIC DIAGNOSES: Lumbar radiculopathy with lumbar spinal stenosis and lumbar degenerative disk disease time. HISTORY OF PRESENT ILLNESS: The patient is a 68-year-old male who returns for followup status post initial evaluation and preauthorization for lumbar epidural steroid injection. The patient returns today wishing to proceed. The patient reports still significant pain in the low back, left lower extremity, posterior gluteus, posterior thigh, posterior calf, worse with walking, standing, changing positions; better with sitting or lying down. The patient reports it awakens him from sleep about every 5-6 hours and reports it is 8 on a scale of 10 at its worst over the past week, 2 at its average, 2 at its least and is a 2 today. The patient reports it is aching, sharp, shooting, becoming severe with walking, standing, better with sitting or resting. The patient reports no new motor or sensory deficits and no new bowel or bladder incontinence or other complaints. PHYSICAL EXAMINATION: VITAL SIGNS: The patient's blood pressure 149/70, pulse 57, respirations 16 and temperature 97.6 degrees Fahrenheit. Height is 6 feet 2 inches and weight is 305 pounds. GENERAL: The patient is awake, alert, oriented, appropriate and very pleasant demeanor. HEENT: Head is normocephalic and atraumatic. Extraocular movements are intact and symmetrical. Oral cavity, mucous membranes are moist and pink. Dentition is intact. NECK: Shows anterior throat supple without palpable lymphadenopathy noted. Swallow reflex is symmetrical. CHEST: Shows normal on inspection. Breath sounds clear to auscultation bilaterally. HEART: Shows S1 and S2 clear. No murmurs auscultated. ABDOMEN: Soft, nontender and nondistended. No palpable organomegaly is noted. No rebound or guarding demonstrated. BACK: Shows spine grossly in the midline. Normal-appearing thoracic kyphosis, some minor flattening of the lumbar lordotic curvature. Lumbar paraspinous muscle shows symmetrical on inspection, on palpation shows some moderate tenderness diffusely in the low lumbar distribution but only diffusely without significant radiation. The patient has good rotational motion of the lumbar spine, both laterally as well as extension and flexion without significant difficulty. EXTREMITIES: The patient's lower extremities showed deep tendon reflexes 1+ in the patellar and tendo-calcaneus tendons. Motor exam is strong with 5/5 dorsiflexion and extension bilaterally. Peripheral pulses are 1+ posterior tibial. No peripheral edema is noted. Options were discussed with the patient. The patient's old chart was reviewed as well as his current medication regimen updated. Current review of systems updated today as well. We will proceed with a lumbar epidural steroid injection today with fluoroscopic guidance. Risks were again discussed including, but not limited to bleeding, infection, possibility of epidural hematoma, subsequent neurologic compromise, dural puncture, headaches, spinal cord and/or nerve damage, side effects of steroid medication and poor results regarding pain control. The patient understands and wished to proceed. The patient will return to the clinic in approximately 2 weeks for followup, was counseled as to return appointment, activity level and side effects to be aware of. DIAGNOSES: Lumbar radiculopathy with lumbar spinal stenosis and lumbar degenerative disk disease. PROCEDURE: Lumbar epidural steroid injection, translaminar approach, L5-S1 level using C-arm fluoroscopic guidance under sterile prep and drape under local anesthetic. MEDICATION INJECTED: A total of 120 mg Depo-Medrol plus 10 mL of preservative-free normal saline and 2 mL of contrast. CONDITION ON DISCHARGE: Stable. The patient tolerated the procedure well and had no complications. RENETTA BARRAZA MD DR: ZAIDA/nts JOB#: [id number] / [id number]
== END ==
LOC: PNCL 10:53
PROVIDERS: ATTEND Anesthesiology
DX: M51.16 Intervertebral disc disorders with radiculopathy, lumbar region (principal); M48.061 Spinal stenosis, lumbar region without neurogenic claudication
CPT/HCPCS: 62323; J1030; J1040; Q9965

== ENCOUNTER → 2018-11-07 | Outpatient (CLI) | payer OTHER ==
[~2018-11-07] MED LIST changes: -IOHEXOL 180 MG/ML 10 ML VIAL. ONE; -methylPREDNISolone ACETATE 40 MG/ML VIAL. ONE; -methylPREDNISolone ACETATE 80 MG/ML VIAL. ONE
--- NOTE | 2018-11-08 05:24 | PAIN ---
DATE OF SERVICE: 11/07/2018 PROGRESS NOTE FOR PAIN CLINIC DIAGNOSES: Lumbar radiculopathy with lumbar spinal stenosis, lumbar degenerative disk disease. HISTORY OF PRESENT ILLNESS: The patient is a 68-year-old male who returns for followup status post lumbar epidural steroid injection x 1. The patient reports about 55-60% improvement after last injection in the low back and left lower extremity. The patient reports he is sleeping much better at night now as he has not slept well for about 6 months. He is more comfortably sleeping through the night. It does not awaken him from sleep anymore. He has increased distance walking, doing household activities, traveling with much greater ease and comfort. Also, has decreased swelling in his left foot. The patient reports the pain is a 1 on a scale of 10 at its worse, 1 on average and 0 at its least and is 0 today. The patient reports no new motor or sensory deficits, no new bowel or bladder incontinence, but occasional pain with walking and standing, radiating to the left lower extremity, posterior gluteus, posterior thigh, posterior calf, again significantly reduced and sleeping much better. The patient describes as aching and dull, on and off, in intensity. PHYSICAL EXAMINATION: VITAL SIGNS: The patient's blood pressure 147/70, pulse 58, respirations are 16, temperature 97.5 degrees Fahrenheit, and weight is 296 pounds. GENERAL: The patient is awake, alert, oriented, appropriate, very pleasant demeanor. HEENT: Head is normocephalic, atraumatic. Extraocular movements are intact and symmetrical. Oral cavity: Mucous membranes moist and pink. Dentition is intact. NECK: Shows anterior throat supple without palpable lymphadenopathy noted. Swallow reflex symmetrical. CHEST: Shows normal on inspection. Breath sounds are clear to auscultation bilaterally. HEART: Shows S1, S2 clear. No murmurs auscultated. ABDOMEN: Soft, nontender, and nondistended. BACK: Shows spine grossly in the midline. Lumbar paraspinous muscle shows symmetrical on inspection and palpation shows some moderate tenderness diffusely, but only diffusely without specific radiation. The patient has good rotational motion of lumbar spine, both laterally as well as extension and flexion without difficulty. EXTREMITIES: Lower extremities show deep tendon reflexes 1+ in the patellar and tendo-calcaneus tendons are equal. Motor exam is approximately 5 on a scale of 5, but symmetrical bilaterally and intact. Peripheral pulses are 1+ posterior tibial. No peripheral edema is noted. Options were discussed with the patient. The patient's old chart was reviewed as his current medication regimen updated. Current review of systems updated today as well. We will preauthorize the patient for a second lumbar epidural steroid injection at the L5-S1 level for L5-S1 radiculopathy on the left side. The patient will continue stretching and strengthening exercises as he has been doing as well as staying as active as possible at least with walking every day and again has been walking without his walker or his cane, which he is encouraged with as well. We will continue to encourage him to do this. The patient will follow up in approximately 2 weeks. Plan on lumbar epidural steroid injection at that time. RENETTA BARRAZA MD DR: ZAIDA/vel JOB#: [id number] / [id number]
== END | disposition home or self-care (01) ==
LOC: PNCL 10:50
PROVIDERS: ATTEND Anesthesiology
DX: M51.16 Intervertebral disc disorders with radiculopathy, lumbar region (principal); M48.061 Spinal stenosis, lumbar region without neurogenic claudication
CPT/HCPCS: G0463

== ENCOUNTER → 2018-11-30 | Outpatient (CLI) | payer OTHER ==
[~2018-11-30] MED LIST changes: +IOHEXOL 180 MG/ML 10 ML VIAL. ONE; +methylPREDNISolone ACETATE 40 MG/ML VIAL. ONE; +methylPREDNISolone ACETATE 80 MG/ML VIAL. ONE
--- NOTE | 2018-11-30 22:51 | PAIN ---
DATE OF SERVICE: 11/30/2018 PROGRESS NOTE FOR PAIN CLINIC DIAGNOSES: Lumbar radiculopathy with lumbar spinal stenosis and lumbar degenerative disk. HISTORY OF PRESENT ILLNESS: The patient is a 68-year-old male who returns for followup status post lumbar epidural steroid injection x 1. The patient reports about 80% improvement, with the pain returning now in the low back and into the left lower extremity. The patient reports no new motor or sensory deficits, reports his pain is sharp and dull, alternating in the left hip and back, spasms in the right foot, also a dull pain in the low back area into the posterior gluteus, posterior thigh, and posterior calf. The patient reports no new motor or sensory deficits, no new bowel or bladder incontinence. Rates his pain as a 3 on a scale of 10 at its worst over the past week, 1 at its average, and 1 at its least and is a 1 today. It has been awakening him up from sleep at night in the last week or so. PHYSICAL EXAMINATION: VITAL SIGNS: The patient's blood pressure is 140/70, pulse 82, respirations 18, temperature 97.4 degrees Fahrenheit. Height is 6 feet 2 inches, weight is 299 pounds. GENERAL: The patient is awake, alert, oriented, appropriate, very pleasant demeanor. HEENT: Head is normocephalic, atraumatic. Extraocular movements are intact and symmetrical. Oral cavity: Mucous membranes are moist and pink. Dentition is intact. NECK: Shows anterior throat supple without palpable lymphadenopathy noted. Swallow reflex is symmetrical. CHEST: Shows normal with inspection. Breath sounds clear to auscultation bilaterally. HEART: Shows S1, S2 clear. No murmurs auscultated. ABDOMEN: Soft, nontender, nondistended. No palpable organomegaly is noted. No rebound or guarding demonstrated. BACK: Shows spine grossly in the midline, normal-appearing thoracic kyphosis, minor flattening of lumbar lordotic curvature. Lumbar paraspinous muscle shows symmetrical on inspection, on palpation shows some moderate tenderness diffusely, but only diffusely without radiation. The patient shows good rotational motion of lumbar spine without significant limitation or difficulty. EXTREMITIES: Lower extremities show deep tendon reflexes at 1+ in the patellar and tendo-calcaneus tendons. Motor exam is 5/5 with dorsiflexion, extension and equal. Peripheral pulses are 1+. No peripheral edema is noted. Options were discussed with the patient. The patient's old chart was reviewed. His current medication regimen updated. Current review of systems updated today as well. We will proceed with a second in the series of lumbar epidural steroid injection today with fluoroscopic guidance. Risks were again discussed including, but not limited to bleeding, infection, possibility of epidural hematoma and subsequent neurological compromise, dural puncture, headaches, spinal cord and/or nerve damage, side effects of steroid medication and poor results regarding pain control. The patient understands and wished to proceed. The patient will return to clinic in approximately 2 weeks for followup, was counseled on return appointment, activity level and side effects to be aware of. DIAGNOSES: Lumbar radiculopathy with lumbar degenerative disk disease, lumbar spinal stenosis. PROCEDURE: Lumbar epidural steroid injection, translaminar approach, at L5-S1 level using C-arm fluoroscopic guidance, under sterile prep and drape using local anesthetic. MEDICATION INJECTED: A total of 120 mg Depo-Medrol plus 10 mL of preservative-free normal saline and 2 mL of contrast. CONDITION AT DISCHARGE: Stable. The patient tolerated the procedure well, had no complications. RENETTA BARRAZA MD DR: ZAIDA/vel JOB#: [id number] / [id number]
== END ==
LOC: PNCL 11:17
PROVIDERS: ATTEND Anesthesiology
DX: M51.16 Intervertebral disc disorders with radiculopathy, lumbar region (principal); M48.061 Spinal stenosis, lumbar region without neurogenic claudication
CPT/HCPCS: 62323; J1030; J1040; Q9965

== ENCOUNTER → 2018-12-18 | Outpatient (CLI) | payer OTHER ==
[~2018-12-18] MED LIST changes: -IOHEXOL 180 MG/ML 10 ML VIAL. ONE; -TIZA4TAB PO; +TIZA4TAB2 PO; -methylPREDNISolone ACETATE 40 MG/ML VIAL. ONE; -methylPREDNISolone ACETATE 80 MG/ML VIAL. ONE
--- NOTE | 2018-12-18 11:55 | PAIN ---
DATE OF SERVICE: 12/18/2018 PROGRESS NOTE FOR PAIN CLINIC DIAGNOSES: Lumbar radiculopathy with lumbar spinal stenosis, lumbar degenerative disk disease. HISTORY OF PRESENT ILLNESS: The patient is a 68-year-old male who returns for followup status post lumbar epidural steroid injection x 2. The patient reports about 65% improvement after the last injection with good pain relief in his low back and left leg. The patient reports the pain is returning now and has been about 3 weeks since his last injection and is becoming more of an aching pain that is sharp and dull and tingling in the back and becoming more constant with walking, standing and weightbearing. The patient reports otherwise doing quite well, has been increasing his activity, distance walking, doing household activities, traveling without difficulty without any significant changes or deficits. The patient reports no new bowel or bladder incontinence or other complaints, rates his pain as 3 on a scale of 10 at its worst over the past week 1 on average, 1 at its least and is a 1 on a scale of 10 today. The patient reports still in the low back, left lower extremity, posterior gluteus, posterior thigh, posterior calf and lateral calf on the left side only. The patient reports no new motor or sensory changes. No bowel or bladder incontinence. PHYSICAL EXAMINATION: VITAL SIGNS: The patient's blood pressure is 141/80, pulse 72, respirations are 16, temperature 97.9 degrees Fahrenheit, height is 6 feet 2 inches, weight is 300 pounds. GENERAL: The patient is awake, alert, oriented, appropriate, very pleasant demeanor. HEENT: Head is normocephalic, atraumatic. Extraocular movements intact and symmetrical. Oral cavity: Mucous membranes moist and pink. Dentition is intact. NECK: Shows anterior throat supple without palpable lymphadenopathy noted. Swallow reflex symmetrical. CHEST: Shows normal on inspection. Breath sounds clear to auscultation bilaterally. HEART: Shows S1, S2 clear. No murmurs auscultated. ABDOMEN: Soft, nontender, nondistended. No palpable organomegaly is noted. No rebound or guarding demonstrated. BACK: Shows spine grossly in the midline. Normal appearing thoracic kyphosis, minor flattening of lumbar lordotic curvature. Lumbar paraspinous muscle shows symmetrical on inspection, on palpation shows some moderate tenderness bilaterally, but only diffusely without radiation. EXTREMITIES: The patient's lower extremities show deep tendon reflexes 1+ in the patellar and tendo-calcaneus tendons. The patient's motor exam is strong with 5/5 dorsiflexion, extension and equal. Peripheral pulses are 1+ posterior tibia. No peripheral edema is noted bilaterally. Options were discussed with the patient. The patient's old chart was reviewed as his current medication regimen updated. Current review of systems updated today as well. We will preauthorize the patient for a third lumbar epidural steroid injection in this series. The patient has done very well with the first two with 65% or more improvement, still with radicular pain in the left L5-S1 dermatomal distribution. We will preauthorize for a L5-S1 translaminar epidural steroid injection third in the series. The patient will continue doing stretching and strengthening exercises on his own, walking daily as he has been doing as tolerated. The patient will return to clinic in approximately 1 week. We will plan on third lumbar epidural steroid injection at that time. RENETTA BARRAZA MD DR: ZAIDA/vel JOB#: [id number] / [id number]
== END | disposition home or self-care (01) ==
LOC: PNCL 10:52
PROVIDERS: ATTEND Anesthesiology
DX: M51.16 Intervertebral disc disorders with radiculopathy, lumbar region (principal); M48.061 Spinal stenosis, lumbar region without neurogenic claudication
CPT/HCPCS: G0463

== ENCOUNTER → 2019-01-09 | Outpatient (CLI) | payer OTHER ==
[~2019-01-09] MED LIST changes: +BACL10TA PO; +IOHEXOL 180 MG/ML 10 ML VIAL. ONE; +methylPREDNISolone ACETATE 40 MG/ML VIAL. ONE; +methylPREDNISolone ACETATE 80 MG/ML VIAL. ONE
--- NOTE | 2019-01-10 03:29 | PAIN ---
DATE OF SERVICE: 01/09/2019 PROGRESS NOTE FOR PAIN CLINIC DIAGNOSIS: Lumbar radiculopathy with lumbar spinal stenosis, lumbar degenerative disk disease. HISTORY OF PRESENT ILLNESS: The patient is a 68-year-old male who returns for followup status post lumbar epidural steroid injections x 2. The patient reports only about 50% improvement in the low back and left leg. There is still some significant pain in the hip itself and into the posterior gluteus, radiating to posterior thigh and calf with numbness and tingling mostly in the hip and low back. The patient reports it is aching, sharp, shooting at times, dull and aching. Otherwise, the patient reports that over the past week, he has had a 3 on a scale of 10 at its worst, 1 on its least 1 on average, is a 1 today. The patient reports no new motor or sensory deficits, no new bowel or bladder incontinence or other complaints. PHYSICAL EXAMINATION: VITAL SIGNS: The patient's blood pressure 142/68, pulse 65, respirations 16, temperature 97.4 degrees Fahrenheit, weight is 304 pounds. GENERAL: The patient is awake, alert, oriented, appropriate, very pleasant demeanor. HEENT: Shows normocephalic, atraumatic. Extraocular movements are intact and symmetrical. Oral cavity: Mucous membranes moist and pink. Dentition is intact. NECK: Shows anterior throat supple without palpable lymphadenopathy noted. Swallow reflex symmetrical. CHEST: Shows normal on inspection. Breath sounds are clear to auscultation bilaterally. HEART: Shows S1, S2 clear. No murmurs auscultated. ABDOMEN: Soft, nontender, nondistended. BACK: Shows spine grossly in the midline. Normal appearing thoracic kyphosis and minor flattening of lumbar lordotic curvature. Lumbar paraspinous muscle shows symmetrical on inspection, on palpation shows some moderate tenderness diffusely throughout the upper, middle and lower distribution of paraspinous muscles bilaterally. EXTREMITIES: Lower extremities show deep tendon reflexes are 1+ in the patellar and tendo calcanenous tendons, and equal. Motor exam is approximately 5 on a scale of 5 with equal and symmetrical with dorsiflexion and extension. The patient does have some edema in the lower extremities. Wearing compression hose from the ankles to the knee, both lower extremities, but still palpable 1 to 2+ pitting edema bilaterally in the ankles. Options were discussed with the patient. The patient's old chart was reviewed as his current medication regimen updated. Current review of systems was updated today as well. We will proceed with a third in the series of lumbar epidural steroid injection today with fluoroscopic guidance. Risks were again discussed including, but not limited to bleeding, infection, possibility of epidural hematoma, subsequent neurologic compromise, dural puncture, headaches, spinal cord and/or nerve damage, side effects of steroid medication and poor results regarding pain control. The patient understands and wished to proceed. The patient will return to clinic in approximately 2 weeks for followup. She was counseled on return appointment, activity level and side effects to be aware of. DIAGNOSIS: Lumbar radiculopathy with lumbar spinal stenosis, lumbar degenerative disk disease. PROCEDURE: Lumbar epidural steroid injection, translaminar approach at the L5-S1 level using C-arm fluoroscopic guidance under sterile prep and drape using local anesthetic. MEDICATION INJECTED: The patient received a total of 120 mg Depo-Medrol plus 10 mL of preservative-free normal saline and 2 mL of contrast. CONDITION AT DISCHARGE: Stable. The patient tolerated the procedure well, had no complications. RENETTA BARRAZA MD DR: ZAIDA/vel JOB#: [id number] / [id number]
== END ==
LOC: PNCL 11:10
PROVIDERS: ATTEND Anesthesiology
DX: M51.16 Intervertebral disc disorders with radiculopathy, lumbar region (principal); M48.061 Spinal stenosis, lumbar region without neurogenic claudication
CPT/HCPCS: 62323; J1030; J1040; Q9965

== ENCOUNTER → 2019-01-21 | Outpatient (CLI) | payer OTHER ==
[~2019-01-21] MED LIST changes: +BUPIVACAINE MPF 0.25% 10 ML VIAL. ONE; -methylPREDNISolone ACETATE 40 MG/ML VIAL. ONE
--- NOTE | 2019-01-22 05:34 | PAIN ---
DATE OF SERVICE: 01/21/2019 PROGRESS NOTE FOR PAIN CLINIC DIAGNOSES: 1. Lumbar radiculopathy with lumbar spinal stenosis, lumbar degenerative disk disease. 2. Left piriformis syndrome. HISTORY OF PRESENT ILLNESS: The patient is a 68-year-old male who returns for followup status post lumbar epidural steroid injections. The patient did initially well, but only minimal increase in or decrease in pain after his last injection in the left hip and low back and left lower extremity. The patient reports it is involved now more to pain in the hip and radiating to posterior gluteus, posterior thigh on the left side, worse with walking, standing, changing positions, especially getting up from a seated position, wakes him from sleep at night, but only about every 6-7 hours. The patient reports no new motor or sensory deficits, but significant spasms in his left leg, especially in the evening or when he first lies down at night. The patient reports it is an aching, sharp, shooting, cramping pain that is dull and tingling at times as well. The patient reports it is a 3 on a scale of 10 at its worst over the past week, 1 on average, 1 at its least, and is a 1 today. The patient reports no new motor or sensory deficits, no new bowel or bladder incontinence or other complaints. PHYSICAL EXAMINATION: VITAL SIGNS: The patient's blood pressure 141/74, pulse 68, respirations 16, temperature 97.9 degrees Fahrenheit, weight is 301 pounds. GENERAL: The patient is awake, alert, oriented, appropriate, very pleasant demeanor. HEENT: Head is normocephalic, atraumatic. Extraocular movements are intact and symmetrical. Oral cavity: Mucous membranes moist and pink. Dentition is intact. NECK: Shows anterior throat supple without palpable lymphadenopathy noted. Swallow reflex symmetrical. CHEST: Shows normal on inspection. Breath sounds clear to auscultation bilaterally. HEART: Shows S1, S2 clear. No murmurs auscultated. ABDOMEN: Soft, nontender, nondistended. BACK: Shows spine grossly in the midline. Lumbar paraspinous muscle shows symmetrical on inspection, on palpation shows some moderate tenderness diffusely bilaterally, but only diffusely without radiation. EXTREMITIES: The patient's lower extremities show deep tendon reflexes 1+ in the patellar and tendo-calcaneus tendons. Motor exam is strong with 5/5 dorsiflexion, extension and equal. Peripheral pulses are 1+ posterior tibial. No peripheral edema is noted. The patient shows some moderate tenderness with significant flexion of the left hip with lying on his right side and tenderness with palpation over the left inferior medial gluteus distribution roughly over the piriformis distribution with very deep palpation reproduces some of the pain with actually some radiation to posterior thigh on the left side. Options were discussed with the patient. The patient's old chart was reviewed and his current medication regimen updated. Current review of systems updated today as well. We will proceed with a left piriformis injection today with fluoroscopic guidance. Risks were discussed including but not limited to bleeding, infection, possibility of intravascular injection sequelae, spread of local anesthetic and numbness, potential of sciatic nerve damage as well as numbness in the sciatic nerve and poor results regarding pain control. The patient understands and wished to proceed. The patient will return to clinic in approximately 2 weeks for followup. He was counseled on return appointment, activity level and side effects to be aware of. DIAGNOSIS: Left piriformis syndrome. PROCEDURE: Left piriformis injection under sterile prep and drape using local anesthetic using C-arm fluoroscopic guidance medication injected, total of 3 mL of 0.25% bupivacaine, 1.5 mL of contrast and 80 mg Depo-Medrol after negative aspiration at the site with good local spread of the contrast without wash out or uptake. CONDITION AT DISCHARGE: Stable. The patient tolerated the procedure well, had no complications. RENETTA BARRAZA MD DR: ZAIDA/vel JOB#: [id number] / [id number]
== END ==
LOC: PNCL 10:57
PROVIDERS: ATTEND Anesthesiology
DX: G57.02 Lesion of sciatic nerve, left lower limb (principal); M51.16 Intervertebral disc disorders with radiculopathy, lumbar region; M48.061 Spinal stenosis, lumbar region without neurogenic claudication; M79.18 Myalgia, other site
CPT/HCPCS: 20552; 77002; J1040; J3490; Q9965

== ENCOUNTER 2019-07-20 15:41 | Inpatient (IN) | payer MEDICARE, OTHER ==
[~2019-07-20] VITALS: Ht 188 cm; Wt 152.7 kg
[~2019-07-20 15:41] MED LIST changes: -BUPIVACAINE MPF 0.25% 10 ML VIAL. ONE; -IOHEXOL 180 MG/ML 10 ML VIAL. ONE; -methylPREDNISolone ACETATE 80 MG/ML VIAL. ONE
[2019-07-20] MEDS ORDERED: HYDROmorphone 2 MG/ML VIAL IVP ONE ×2 (16:00→16:30)
[2019-07-20] MEDS ORDERED: DEXAMETHASONE SOD PHOS 20 MG/5 ML VIAL. IV ONE (16:00)
[2019-07-20] MEDS: IV NORMAL SALINE 1000ML BAG 1,000 ML IV SCH (16:32)
--- NOTE | 2019-07-20 16:40 | RAD ---
CT HEAD WO CONTRAST History: Fall. Pain. Comparison: None. Technique: Noncontrast CT imaging was performed of the head. Exposure: One or more of the following individualized dose reduction techniques were utilized for this examination: 1. Automated exposure control 2. Adjustment of the mA and/or kV according to patient size 3. Use of iterative reconstruction technique. Findings: No intracranial hemorrhage. No mass effect. No hydrocephalus. Extra-axial spaces are unremarkable. Imaged orbits are unremarkable. Minimal scattered paranasal sinus mucosal thickening. Mastoid air cells are clear. TMJ arthropathy greatest on the left. No acute calvarial fracture. Impression: 1. No acute intracranial abnormality. Electronically signed by: Markie Aquino DO (07/20/2019 4:37 PM) [id number]
[2019-07-20 16:42] LABS: BASO % 1 % (0-3); EOS # 0.2 x10^3/uL (0.0-0.7); EOS % 2 % (0-3); HEMATOCRIT 35.7 % (39.0-53.0); HEMOGLOBIN 12.3 g/dL (13.0-17.5); LYMPH # 2.3 x10^3/uL (1.0-4.8); LYMPH % 27 % (24-48); MEAN CORPUSCULAR HEMOGLOBIN 31 pg (25-35); MEAN CORPUSCULAR HGB CONC 35 g/dL (31-37); MEAN CORPUSCULAR VOLUME 90 fL (79-100); MONO # 0.9 x10^3/uL (0.0-1.1); MONO % 10 % (0-9); NEUT # 5.3 x10^3/uL (1.8-7.7); NEUT % 60 % (31-73); PLATELET COUNT 196 x10^3/uL (140-400); RED BLOOD COUNT 3.96 x10^6/uL (4.30-5.70); RED CELL DISTRIBUTION WIDTH 13.5 % (11.5-14.5); WHITE BLOOD COUNT 8.7 x10^3/uL (4.0-11.0)
[2019-07-20] MEDS ORDERED: ACETAMINOPHEN 325 MG TABLET. PO PRN (16:45)
[2019-07-20] MEDS ORDERED: ONDANSETRON PF 4 MG/2 ML VIAL. IV PRN (16:45)
[2019-07-20 16:49] LABS: CALCIUM 8.4 mg/dL (8.5-10.1); CREATININE 0.8 mg/dL (0.7-1.3); GFR 96.1; POTASSIUM 4.2 mmol/L (3.5-5.1)
[2019-07-20 16:55] LABS: ALBUMIN 3.3 g/dL (3.4-5.0); ALBUMIN/GLOBULIN RATIO 0.9 (1.0-1.7); TOTAL BILIRUBIN 0.3 mg/dL (0.2-1.0)
--- NOTE | 2019-07-20 17:00 | PHYS DOC ---
Past Medical History Past Medical History: Other Additional Past Medical Histor: chronic BLE swelling, chronic back pain, SCIATICA, OBESITY Past Surgical History: Other Additional Past Surgical Histo: left great toenail removed Smoking Status: Current Every Day Smoker Alcohol Use: None Drug Use: None Adult General Chief Complaint Chief Complaint: MECHANICAL FALL HPI HPI 69-year-old male with multiple chronic medical problems including chronic back pain with sciatica presents with worsening back pain and left leg pain today. The pain was so bad that he fell out of the chair and hit his head. He does not think he lost consciousness. He denies any bowel or bladder loss. EMS was called and on their arrival and a very difficult time getting him up out of the floor. They reported that he may have been in the floor for 2 hours. When questioned, the patient did not recall how long he was in the floor after the fall. He denies any neck pain or any other lateralizing neurologic complaints. He states the pain is very typical of his back pain and sciatic pain. He states the pain is 10 out of 10 currently.[] Review of Systems Review of Systems Constitutional: Denies fever or chills [] Eyes: Denies change in visual acuity, redness, or eye pain [] HENT: Denies nasal congestion or sore throat [] Respiratory: Denies cough or shortness of breath [] Cardiovascular: No additional information not addressed in HPI [] GI: Denies abdominal pain, nausea, vomiting, bloody stools or diarrhea [] : Denies dysuria or hematuria [] Musculoskeletal: Per history of present illness[] Integument: Denies rash or skin lesions [] Neurologic: Denies headache, focal weakness or sensory changes [] Endocrine: Denies polyuria or polydipsia [] All other systems were reviewed and found to be within normal limits, except as documented in this note. Current Medications Current Medications Current Medications Medications (Trade) Dose Ordered Sig/Moi Start Time Stop Time Status Last Admin Dose Admin Acetaminophen (Tylenol) 650 mg PRN Q4HRS PRN 07/20/19 16:45 07/21/19 16:44 Dexamethasone Sodium Phosphate (Decadron) 10 mg 1X ONCE 07/20/19 16:00 07/20/19 16:01 DC 07/20/19 16:11 10 MG Fentanyl Citrate (Fentanyl 2ml Vial) 50 mcg PRN Q1HR PRN 07/20/19 16:45 07/21/19 16:44 Hydromorphone HCl (Dilaudid) 1 mg 1X ONCE 07/20/19 16:30 07/20/19 16:31 DC 07/20/19 16:32 1 MG Lorazepam (Ativan Inj) 1 mg PRN Q6HRS PRN 07/20/19 16:45 Ondansetron HCl (Zofran) 4 mg PRN Q8HRS PRN 07/20/19 16:45 07/21/19 16:44 Sodium Chloride 1,000 ml @ 125 mls/hr Q8H 07/20/19 16:32 07/21/19 16:31 Allergies Allergies Allergies Coded Allergies Type Severity Reaction Last Updated Verified No Known Drug Allergies 04/17/18 No Physical Exam Physical Exam Constitutional: Well developed, well nourished, extremely uncomfortable. [] HENT: Normocephalic, atraumatic, bilateral external ears normal, oropharynx moist, no oral exudates, nose normal. [] Eyes: PERRLA, EOMI, conjunctiva normal, no discharge. [] Neck: Normal range of motion, no tenderness, supple, no stridor. [] Cardiovascular:Heart rate regular rhythm, no murmur [] Lungs & Thorax: Bilateral breath sounds clear to auscultation [] Abdomen: Bowel sounds normal, soft, no tenderness, no masses, no pulsatile masses. [] Skin: Warm, dry, no erythema, no rash. [] Back: No tenderness, no CVA tenderness. [] Extremities: No tenderness, no cyanosis, no clubbing, ROM intact, no edema. [] Neurologic: Alert and oriented X 3, normal motor function, normal sensory function, no focal deficits noted positive straight leg raise on the left. [] Psychologic: Extremely anxious[] Current Patient Data Vital Signs Vital Signs Date Time Temp Pulse Resp B/P (MAP) Pulse Ox O2 Delivery O2 Flow Rate FiO2 07/20/19 16:32 Room Air 07/20/19 16:26 80 92 07/20/19 15:41 97.1 22 209/88 (128) 97.1 Lab Values Laboratory Tests Test 07/20/19 16:34 White Blood Count 8.7 x10^3/uL (4.0-11.0) Red Blood Count 3.96 x10^6/uL (4.30-5.70) L Hemoglobin 12.3 g/dL (13.0-17.5) L Hematocrit 35.7 % (39.0-53.0) L Mean Corpuscular Volume 90 fL (79-100) Mean Corpuscular Hemoglobin 31 pg (25-35) Mean Corpuscular Hemoglobin Concent 35 g/dL (31-37) Red Cell Distribution Width 13.5 % (11.5-14.5) Platelet Count 196 x10^3/uL (140-400) Neutrophils (%) (Auto) 60 % (31-73) Lymphocytes (%) (Auto) 27 % (24-48) Monocytes (%) (Auto) 10 % (0-9) H Eosinophils (%) (Auto) 2 % (0-3) Basophils (%) (Auto) 1 % (0-3) Neutrophils # (Auto) 5.3 x10^3/uL (1.8-7.7) Lymphocytes # (Auto) 2.3 x10^3/uL (1.0-4.8) Monocytes # (Auto) 0.9 x10^3/uL (0.0-1.1) Eosinophils # (Auto) 0.2 x10^3/uL (0.0-0.7) Basophils # (Auto) 0.0 x10^3/uL (0.0-0.2) Sodium Level 142 mmol/L (136-145) Potassium Level 4.2 mmol/L (3.5-5.1) Chloride Level 108 mmol/L (98-107) H Carbon Dioxide Level 25 mmol/L (21-32) Anion Gap 9 (6-14) Blood Urea Nitrogen 20 mg/dL (8-26) Creatinine 0.8 mg/dL (0.7-1.3) Estimated GFR (Cockcroft-Gault) 96.1 BUN/Creatinine Ratio 25 (6-20) H Glucose Level 91 mg/dL (70-99) Calcium Level 8.4 mg/dL (8.5-10.1) L Total Bilirubin 0.3 mg/dL (0.2-1.0) Aspartate Amino Transferase (AST) 23 U/L (15-37) Alanine Aminotransferase (ALT) 32 U/L (16-63) Alkaline Phosphatase 75 U/L (46-116) Creatine Kinase 195 U/L (39-308) Total Protein 7.0 g/dL (6.4-8.2) Albumin 3.3 g/dL (3.4-5.0) L Albumin/Globulin Ratio 0.9 (1.0-1.7) L Laboratory Tests 07/20/19 16:34 Laboratory Tests 07/20/19 16:34 EKG EKG [] Radiology/Procedures Radiology/Procedures [PROCEDURE: CT HEAD WO CONTRAST CT HEAD WO CONTRAST History: Fall. Pain. Comparison: None. Technique: Noncontrast CT imaging was performed of the head. Exposure: One or more of the following individualized dose reduction techniques were utilized for this examination: 1. Automated exposure control 2. Adjustment of the mA and/or kV according to patient size 3. Use of iterative reconstruction technique. Findings: No intracranial hemorrhage. No mass effect. No hydrocephalus. Extra-axial spaces are unremarkable. Imaged orbits are unremarkable. Minimal scattered paranasal sinus mucosal thickening. Mastoid air cells are clear. TMJ arthropathy greatest on the left. No acute calvarial fracture. Impression: 1. No acute intracranial abnormality. ] Course & Med Decision Making Course & Med Decision Making Pertinent Labs and Imaging studies reviewed. (See chart for details) [ED course: Evaluation reveals a 69-year-old male whose very uncomfortable secondary to low back pain. EMS gave the patient 10 mg of Versed in route which did not ease his anxiety or discomfort. I gave him 10 mg of Decadron IV along with a total of 2 mg of Dilaudid IV which did ease his pain to some degree. Given his current living situation which includes a that takes care of him who is confined to wheelchair I do not believe that I will be able to get the patient comfortable enough and stable enough to send home. I spoke with Dr. logan who is agreed to accept the patient for admission. I think a consult with neurosurgery is also warranted.] Dragon Disclaimer Dragon Disclaimer This electronic medical record was generated, in whole or in part, using a voice recognition dictation system. Departure Departure Impression: Primary Impression: Intractable low back pain Additional Impression: Sciatica of left side Disposition: 09 ADMITTED INPATIENT Admitting Physician: HIMS Condition: GUARDED Referrals: CICI SAENZ MD (PCP) Problem Qualifiers CASEY MICHAUD DO Jul 20, 2019 17:00
[2019-07-20 17:45] VITALS: BP 147/53
[2019-07-20 19:00] VITALS: BP 140/50
[2019-07-20] MEDS ORDERED: ATOR10TA60 PO (19:04)
[2019-07-20] MEDS ORDERED: TIZA4TAB2 PO (19:09)
[2019-07-20] MEDS ORDERED: ASCO500C PO (19:09)
[2019-07-20] MEDS ORDERED: QUET25TA PO (19:09)
--- NOTE | 2019-07-20 19:56 | NUR ---
The patient, TAYLOR ACOSTA, 69 y/o, M admitted by LANEY JIANG MD, was given written information regarding hospital policies, unit procedures and contact persons. Valuables were checked and pt. oriented to room. Will continue to monitor.
[2019-07-20] MEDS: fentaNYL PF VIAL 100 MCG/2 ML VIAL IV PRN (20:22)
[2019-07-20] MEDS ORDERED: AMITRIPTYLINE HCL 25 MG TABLET. PO PRN (20:30)
[2019-07-20] MEDS ORDERED: POTASSIUM CHLORIDE 10 MEQ TABLET.ER. PO PRN (20:30)
[2019-07-20] MEDS ORDERED: KETOROLAC 30 MG/ML VIAL. IVP ONE (21:00)
[2019-07-20] MEDS: ATORVASTATIN CALCIUM 10 MG TABLET. PO SCH (21:17)
[2019-07-20] MEDS: QUEtiapine 25 MG TABLET. PO SCH (21:17)
--- NOTE | 2019-07-20 21:29 | PDOC1 ---
History and Physical Date of Admission Date of Admission DATE: 07/20/19 TIME: 21:22 Source Source: Chart review, Patient History of Present Illness History of Present Illness MR. Mcclure is a 69-year-old male admit iwth severe and intracable back pain, He has history of multiple chronic medical problems including chronic back pain with sciatica. Today, he has severe worsening back pain and left leg pain today. The pain was so bad that he fell out of the chair and hit his head, without LOC. EMS was called and had trouble getting him up, as he is large, and could not help due to pain. He may have been in the floor for 2 hours, and he states the pain is very typical of his back pain and sciatic pain. pain was 10 in ER, meds given, maybe 6 now, he is wantign to try to sit up. will need some assist Past Medical History Cardiovascular: No pertinent hx Pulmonary: No pertinent hx GI: Constipation Heme/Onc: No pertinent hx Hepatobiliary: No pertinent hx Psych: No pertinent hx Musculoskeletal: low back pain, Osteoarthritis, Stiffness, Other (sciatica) Rheumatologic: No pertinent hx Infectious disease: No pertinent hx Renal/: Benign prostatic enlarg. Endocrine: No pertinent hx Dermatology: Eczema, Other Past Surgical History Past Surgical History: No pertinent history Family History Family History: High Cholestrol, Hypertension Social History Smoke: 1 pack per day ALCOHOL: rare Drugs: None Current Problem List Problem List Problems Medical Problems: (1) Intractable low back pain Status: Acute (2) Sciatica of left side Status: Acute Current Medications Current Medications Current Medications Hydromorphone HCl (Dilaudid) 1 mg 1X ONCE IVP Last administered on 07/20/19at 16:09; Start 07/20/19 at 16:00; Stop 07/20/19 at 16:01; Status DC Dexamethasone Sodium Phosphate (Decadron) 10 mg 1X ONCE IV Last administered on 07/20/19at 16:11; Start 07/20/19 at 16:00; Stop 07/20/19 at 16:01; Status DC Hydromorphone HCl (Dilaudid) 1 mg 1X ONCE IVP Last administered on 07/20/19at 16:32; Start 07/20/19 at 16:30; Stop 07/20/19 at 16:31; Status DC Ondansetron HCl (Zofran) 4 mg PRN Q8HRS PRN IV NAUSEA/VOMITING; Start 07/20/19 at 16:45; Stop 07/21/19 at 16:44 Fentanyl Citrate (Fentanyl 2ml Vial) 50 mcg PRN Q1HR PRN IV PAIN Last administered on 07/20/19at 20:22; Start 07/20/19 at 16:45; Stop 07/21/19 at 16:44 Sodium Chloride 1,000 ml @ 125 mls/hr Q8H IV ; Start 07/20/19 at 16:32; Stop 07/21/19 at 16:31 Acetaminophen (Tylenol) 650 mg PRN Q4HRS PRN PO FEVER; Start 07/20/19 at 16:45; Stop 07/21/19 at 16:44 Lorazepam (Ativan Inj) 1 mg PRN Q6HRS PRN IVP ANXIETY / AGITATION; Start 07/20/19 at 16:45 Ketorolac Tromethamine (Toradol 30mg Vial) 30 mg 1X ONCE IVP Last administered on 07/20/19at 21:17; Start 07/20/19 at 21:00; Stop 07/20/19 at 21:01; Status DC Oxycodone/ Acetaminophen (Percocet 10/325) 1 tab PRN Q4HRS PRN PO pain; Start 07/20/19 at 20:30 Amitriptyline HCl (Elavil) 25 mg PRN QHS PRN PO INSOMNIA; Start 07/20/19 at 20:30 Atorvastatin Calcium (Lipitor) 10 mg HS PO Last administered on 07/20/19at 21:17; Start 07/20/19 at 21:00 Potassium Chloride (Klor-Con) 10 meq PRN DAILY PRN PO take with furosemide; Start 07/20/19 at 20:30 Quetiapine Fumarate (SEROquel) 25 mg HS PO Last administered on 07/20/19at 21:17; Start 07/20/19 at 21:00 Tizanidine HCl (Zanaflex) 4 mg PRN TID PRN PO MUSCLE SPASMS; Start 07/20/19 at 20:30 Active Scripts Active Potassium Chloride (Potassium Chloride) 10 Meq Tab.sr.24h 10 Meq PO DAILY PRN 30 Days Furosemide 40 Mg Tablet 1 Tab PO DAILY PRN 30 Days Reported Vitamin C (Ascorbic Acid) 500 Mg Capsule.er 500 Mg PO DAILY Quetiapine Fumarate 25 Mg Tablet 25 Mg PO HS Tizanidine Hcl 4 Mg Tablet 4 Mg PO TID PRN Atorvastatin Calcium 10 Mg Tablet 10 Mg PO HS Amitriptyline Hcl 25 Mg Tablet 1 Tab PO QHS PRN Allergies Allergies: Coded Allergies: No Known Drug Allergies (Unverified , 04/17/18) ROS General: YES: Fatigue; No: Chills, Night Sweats, Malaise, Appetite, Other PSYCHOLOGICAL ROS: YES: Irritablity, Sleep disturbances; No: Anxiety, Behavioral Disorder, Concentration difficultie, Decreased libido, Depression, Disorientation, Hallucinations, Hostility, Memory difficulties, Mood Swings, Obsessive thoughts, Other Eyes: No Blurry vision, No Decreased vision, No Double vision, No Dry eyes, No Excessive tearing, No Eye Pain, No Itchy Eyes, No Loss of vision, No Photophobia, No Scotomata, No Uses contacts, No Uses glasses, No Other HEENT: No: Heacaches, Visual Changes, Hearing change, Nasal congestion, Nasal discharge, Oral lesions, Sinus pain, Sore Throat, Epistaxis, Sneezing, Snoring, Tinnitus, Vertigo, Vocal changes, Other Respiratory: No: Cough, Hemoptysis, Orthopnea, Pleuritic Pain, Shortness of breath, SOB with excertion, Sputum Changes, Stridor, Tachypnea, Wheezing, Other Cardiovascular: yes Edema; No Chest Pain, No Palpitations, No Orthopnea, No Paroxysmal Noc. Dyspnea, No Lt Headedness, No Other Gastrointestinal: Yes Nausea; No Vomiting, No Abdominal Pain, No Diarrhea, No Constipation, No Melena, No Hematochezia, No Other Genitourinary: YES Frequency, YES Retention; No Dysuria, No Incontinence, No Hematuria, No Discharge, No Urgency, No Pain, No Flank Pain, No Other, No , No , No , No , No , No , No Musculoskeletal: Yes Gait Disturbance, Yes Joint Pain, Yes Joint Stiffness, Yes Muscular Weakness, Yes Pain In: (back, down leg); No Joint Swelling, No Muscle Pain, No Swelling In:, No Other Neurological: Yes Gait Disturbance; No Behavorial Changes, No Bowel/Bladder ControlChng, No Confusion, No Dizziness, No Headaches, No Impaired Coord/balance, No Memory Loss, No Numbness/Tingling, No Seizures, No Speech Problems, No Tremors, No Visual Changes, No Weakness, No Other Skin: Yes Dry Skin; No Eczema, No Hair Changes, No Lumps, No Mole Changes, No Mottling, No Nail Changes, No Pruritus, No Rash, No Skin Lesion Changes, No Other, No Acne Physical Exam General: Oriented X3, Cooperative, mild distress, moderate distress HEENT: Atraumatic, PERRLA, Mucous membr. moist/pink Lungs: Clear to auscultation Heart: S1S2, RRR, no gallops Abdomen: Normal bowel sounds (obese, ), Soft Extremities: Normal pulses, Other (marked LE edema, 4+ with dystrophic nails, ) Skin: No breakdown, Other (thickened licenoid skin to heels and feet) Neuro: Normal speech, Sensation intact Psych/Mental Status: Mental status NL, Mood NL Vitals Vitals Vital Signs Date Time Temp Pulse Resp B/P (MAP) Pulse Ox O2 Delivery O2 Flow Rate FiO2 07/20/19 20:52 18 98 2.0 07/20/19 20:22 Room Air 07/20/19 19:00 97.6 67 140/50 (80) 97.6 Labs Labs Laboratory Tests Test 07/20/19 16:34 White Blood Count 8.7 x10^3/uL (4.0-11.0) Red Blood Count 3.96 x10^6/uL (4.30-5.70) Hemoglobin 12.3 g/dL (13.0-17.5) Hematocrit 35.7 % (39.0-53.0) Mean Corpuscular Volume 90 fL (79-100) Mean Corpuscular Hemoglobin 31 pg (25-35) Mean Corpuscular Hemoglobin Concent 35 g/dL (31-37) Red Cell Distribution Width 13.5 % (11.5-14.5) Platelet Count 196 x10^3/uL (140-400) Neutrophils (%) (Auto) 60 % (31-73) Lymphocytes (%) (Auto) 27 % (24-48) Monocytes (%) (Auto) 10 % (0-9) Eosinophils (%) (Auto) 2 % (0-3) Basophils (%) (Auto) 1 % (0-3) Neutrophils # (Auto) 5.3 x10^3/uL (1.8-7.7) Lymphocytes # (Auto) 2.3 x10^3/uL (1.0-4.8) Monocytes # (Auto) 0.9 x10^3/uL (0.0-1.1) Eosinophils # (Auto) 0.2 x10^3/uL (0.0-0.7) Basophils # (Auto) 0.0 x10^3/uL (0.0-0.2) Sodium Level 142 mmol/L (136-145) Potassium Level 4.2 mmol/L (3.5-5.1) Chloride Level 108 mmol/L (98-107) Carbon Dioxide Level 25 mmol/L (21-32) Anion Gap 9 (6-14) Blood Urea Nitrogen 20 mg/dL (8-26) Creatinine 0.8 mg/dL (0.7-1.3) Estimated GFR (Cockcroft-Gault) 96.1 BUN/Creatinine Ratio 25 (6-20) Glucose Level 91 mg/dL (70-99) Calcium Level 8.4 mg/dL (8.5-10.1) Total Bilirubin 0.3 mg/dL (0.2-1.0) Aspartate Amino Transf (AST/SGOT) 23 U/L (15-37) Alanine Aminotransferase (ALT/SGPT) 32 U/L (16-63) Alkaline Phosphatase 75 U/L (46-116) Creatine Kinase 195 U/L (39-308) Total Protein 7.0 g/dL (6.4-8.2) Albumin 3.3 g/dL (3.4-5.0) Albumin/Globulin Ratio 0.9 (1.0-1.7) Laboratory Tests Test 07/20/19 16:34 White Blood Count 8.7 x10^3/uL (4.0-11.0) Red Blood Count 3.96 x10^6/uL (4.30-5.70) Hemoglobin 12.3 g/dL (13.0-17.5) Hematocrit 35.7 % (39.0-53.0) Mean Corpuscular Volume 90 fL (79-100) Mean Corpuscular Hemoglobin 31 pg (25-35) Mean Corpuscular Hemoglobin Concent 35 g/dL (31-37) Red Cell Distribution Width 13.5 % (11.5-14.5) Platelet Count 196 x10^3/uL (140-400) Neutrophils (%) (Auto) 60 % (31-73) Lymphocytes (%) (Auto) 27 % (24-48) Monocytes (%) (Auto) 10 % (0-9) Eosinophils (%) (Auto) 2 % (0-3) Basophils (%) (Auto) 1 % (0-3) Neutrophils # (Auto) 5.3 x10^3/uL (1.8-7.7) Lymphocytes # (Auto) 2.3 x10^3/uL (1.0-4.8) Monocytes # (Auto) 0.9 x10^3/uL (0.0-1.1) Eosinophils # (Auto) 0.2 x10^3/uL (0.0-0.7) Basophils # (Auto) 0.0 x10^3/uL (0.0-0.2) Sodium Level 142 mmol/L (136-145) Potassium Level 4.2 mmol/L (3.5-5.1) Chloride Level 108 mmol/L (98-107) Carbon Dioxide Level 25 mmol/L (21-32) Anion Gap 9 (6-14) Blood Urea Nitrogen 20 mg/dL (8-26) Creatinine 0.8 mg/dL (0.7-1.3) Estimated GFR (Cockcroft-Gault) 96.1 BUN/Creatinine Ratio 25 (6-20) Glucose Level 91 mg/dL (70-99) Calcium Level 8.4 mg/dL (8.5-10.1) Total Bilirubin 0.3 mg/dL (0.2-1.0) Aspartate Amino Transf (AST/SGOT) 23 U/L (15-37) Alanine Aminotransferase (ALT/SGPT) 32 U/L (16-63) Alkaline Phosphatase 75 U/L (46-116) Creatine Kinase 195 U/L (39-308) Total Protein 7.0 g/dL (6.4-8.2) Albumin 3.3 g/dL (3.4-5.0) Albumin/Globulin Ratio 0.9 (1.0-1.7) VTE Prophylaxis Ordered VTE Prophylaxis Devices: Contraindicated VTE Pharmacological Prophylaxi: Yes Assessment/Plan Assessment/Plan intractable back pain with sciatica, known to Dr. James, has done joint injections previously, will consult tobacco use disorder, replacemetn fall, back injury, pain control morbid obesity, BMI 45 lymphedema, will consult OT lymph weakness, pt and ot BPH, slow, infreq, will scan protocol, restart flomax admit LANEY JIANG MD Jul 20, 2019 21:29
[2019-07-20] MEDS ORDERED: NICOTINE 21MG PATCH. TD PRN (21:30)
[2019-07-20] MEDS ORDERED: NICOTINE POLACRILEX 2MG GUM PACKAGE of 12. BC PRN (21:30)
[2019-07-20] MEDS ORDERED: TAMSULOSIN 0.4 MG CAP.ER.24H. PO ONE (22:00)
[2019-07-20] MEDS: ENOXAPARIN 40 MG/0.4 ML SYRINGE. SQ SCH (22:01)
[2019-07-20 23:00] VITALS: BP 144/61
--- NOTE | 2019-07-21 01:52 | NUR ---
Patient has been incontinent multiple times with good amount noted on juan francisco and sometimes in urinal and changed with good darian-care done, bladder scan done per doctor Grewal request PRN with greater than 258cc post void noted, Patient denies any c/o pain/discomfort.
[2019-07-21] MEDS: IV NORMAL SALINE 1000ML BAG 1,000 ML IV SCH ×2 (02:20→09:57)
[2019-07-21 03:00] VITALS: BP 97/37
[2019-07-21 07:00] VITALS: BP 113/36
[2019-07-21 07:04] LABS: BASO % 0 % (0-3); EOS % 0 % (0-3); HEMATOCRIT 31.9 % (39.0-53.0); LYMPH # 1.5 x10^3/uL (1.0-4.8); LYMPH % 26 % (24-48); MEAN CORPUSCULAR HEMOGLOBIN 31 pg (25-35); MEAN CORPUSCULAR HGB CONC 35 g/dL (31-37); MEAN CORPUSCULAR VOLUME 90 fL (79-100); MONO # 0.3 x10^3/uL (0.0-1.1); MONO % 6 % (0-9); NEUT # 3.9 x10^3/uL (1.8-7.7); NEUT % 68 % (31-73); PLATELET COUNT 150 x10^3/uL (140-400); RED BLOOD COUNT 3.53 x10^6/uL (4.30-5.70); RED CELL DISTRIBUTION WIDTH 13.4 % (11.5-14.5); WHITE BLOOD COUNT 5.7 x10^3/uL (4.0-11.0)
[2019-07-21 07:25] LABS: ALBUMIN 2.7 g/dL (3.4-5.0); ALBUMIN/GLOBULIN RATIO 0.8 (1.0-1.7); CALCIUM 7.9 mg/dL (8.5-10.1); CREATININE 0.9 mg/dL (0.7-1.3); GFR 83.9; POTASSIUM 4.1 mmol/L (3.5-5.1); TOTAL BILIRUBIN 0.3 mg/dL (0.2-1.0); TOTAL PROTEIN 6.2 g/dL (6.4-8.2)
[2019-07-21] MEDS: ENOXAPARIN 40 MG/0.4 ML SYRINGE. SQ SCH ×2 (09:17→20:37)
[2019-07-21] MEDS: fentaNYL PF VIAL 100 MCG/2 ML VIAL IV PRN (09:19)
[2019-07-21] MEDS: GABAPENTIN 300 MG CAPSULE. PO SCH (09:59)
[2019-07-21] MEDS: METHOCARBAMOL 750 MG TABLET PO PRN ×2 (09:59→18:03)
--- NOTE | 2019-07-21 10:17 | PDOC ---
PROGRESS NOTES Chief Complaint Chief Complaint Intractable back pain with sciatica, known to Dr. James, has done joint injections previously, awaiting consultation tobacco use disorder, replacement fall, back injury, pain control morbid obesity, BMI 45 lymphedema, will consult OT lymph weakness, pt and ot BPH, slow, infreq, will scan protocol, restart flomax Plan will start gabapentin for better pain management pain management resume home meds awaiting for consultation reassess in the am DVT prophylaxis: History of Present Illness History of Present Illness Patient in acute distress during my visit. Patient in great distress due to the pain from his sciatica, reassurance provided, plan of care in detail. All concerns addressed to the best of my abilities. Vitals Vitals Vital Signs Date Time Temp Pulse Resp B/P (MAP) Pulse Ox O2 Delivery O2 Flow Rate FiO2 07/21/19 09:59 Room Air 07/21/19 07:00 98.2 58 18 113/36 (61) 93 98.2 07/20/19 20:52 2.0 Physical Exam General: Oriented X3, Cooperative, mild distress, moderate distress Lungs: Clear, Other Abdomen: Normal bowel sounds (obese, ), Soft Extremities: Normal pulses, Other (marked LE edema, 4+ with dystrophic nails, ) Skin: No breakdown, Other (thickened licenoid skin to heels and feet) Labs LABS Laboratory Tests Test 07/20/19 16:34 07/20/19 21:23 07/21/19 06:25 07/21/19 07:50 White Blood Count 8.7 x10^3/uL (4.0-11.0) 5.7 x10^3/uL (4.0-11.0) Red Blood Count 3.96 x10^6/uL (4.30-5.70) 3.53 x10^6/uL (4.30-5.70) Hemoglobin 12.3 g/dL (13.0-17.5) 11.0 g/dL (13.0-17.5) Hematocrit 35.7 % (39.0-53.0) 31.9 % (39.0-53.0) Mean Corpuscular Volume 90 fL (79-100) 90 fL (79-100) Mean Corpuscular Hemoglobin 31 pg (25-35) 31 pg (25-35) Mean Corpuscular Hemoglobin Concent 35 g/dL (31-37) 35 g/dL (31-37) Red Cell Distribution Width 13.5 % (11.5-14.5) 13.4 % (11.5-14.5) Platelet Count 196 x10^3/uL (140-400) 150 x10^3/uL (140-400) Neutrophils (%) (Auto) 60 % (31-73) 68 % (31-73) Lymphocytes (%) (Auto) 27 % (24-48) 26 % (24-48) Monocytes (%) (Auto) 10 % (0-9) 6 % (0-9) Eosinophils (%) (Auto) 2 % (0-3) 0 % (0-3) Basophils (%) (Auto) 1 % (0-3) 0 % (0-3) Neutrophils # (Auto) 5.3 x10^3/uL (1.8-7.7) 3.9 x10^3/uL (1.8-7.7) Lymphocytes # (Auto) 2.3 x10^3/uL (1.0-4.8) 1.5 x10^3/uL (1.0-4.8) Monocytes # (Auto) 0.9 x10^3/uL (0.0-1.1) 0.3 x10^3/uL (0.0-1.1) Eosinophils # (Auto) 0.2 x10^3/uL (0.0-0.7) 0.0 x10^3/uL (0.0-0.7) Basophils # (Auto) 0.0 x10^3/uL (0.0-0.2) 0.0 x10^3/uL (0.0-0.2) Sodium Level 142 mmol/L (136-145) 142 mmol/L (136-145) Potassium Level 4.2 mmol/L (3.5-5.1) 4.1 mmol/L (3.5-5.1) Chloride Level 108 mmol/L (98-107) 109 mmol/L (98-107) Carbon Dioxide Level 25 mmol/L (21-32) 23 mmol/L (21-32) Anion Gap 9 (6-14) 10 (6-14) Blood Urea Nitrogen 20 mg/dL (8-26) 24 mg/dL (8-26) Creatinine 0.8 mg/dL (0.7-1.3) 0.9 mg/dL (0.7-1.3) Estimated GFR (Cockcroft-Gault) 96.1 83.9 BUN/Creatinine Ratio 25 (6-20) 27 (6-20) Glucose Level 91 mg/dL (70-99) 118 mg/dL (70-99) Calcium Level 8.4 mg/dL (8.5-10.1) 7.9 mg/dL (8.5-10.1) Total Bilirubin 0.3 mg/dL (0.2-1.0) 0.3 mg/dL (0.2-1.0) Aspartate Amino Transf (AST/SGOT) 23 U/L (15-37) 23 U/L (15-37) Alanine Aminotransferase (ALT/SGPT) 32 U/L (16-63) 29 U/L (16-63) Alkaline Phosphatase 75 U/L (46-116) 61 U/L (46-116) Creatine Kinase 195 U/L (39-308) Total Protein 7.0 g/dL (6.4-8.2) 6.2 g/dL (6.4-8.2) Albumin 3.3 g/dL (3.4-5.0) 2.7 g/dL (3.4-5.0) Albumin/Globulin Ratio 0.9 (1.0-1.7) 0.8 (1.0-1.7) Glucose (Fingerstick) 113 mg/dL (70-99) 118 mg/dL (70-99) Review of Systems Review of Systems Review of systems pertinent as per HPI otherwise 14 point review of system is negative Assessment and Plan Assessmemt and Plan Problems Medical Problems: (1) Intractable low back pain Status: Acute (2) Sciatica of left side Status: Acute Comment Review of Relevant I have reviewed the following items otilio (where applicable) has been applied. Labs Laboratory Tests Test 07/20/19 16:34 07/20/19 21:23 07/21/19 06:25 07/21/19 07:50 White Blood Count 8.7 x10^3/uL (4.0-11.0) 5.7 x10^3/uL (4.0-11.0) Red Blood Count 3.96 x10^6/uL (4.30-5.70) 3.53 x10^6/uL (4.30-5.70) Hemoglobin 12.3 g/dL (13.0-17.5) 11.0 g/dL (13.0-17.5) Hematocrit 35.7 % (39.0-53.0) 31.9 % (39.0-53.0) Mean Corpuscular Volume 90 fL (79-100) 90 fL (79-100) Mean Corpuscular Hemoglobin 31 pg (25-35) 31 pg (25-35) Mean Corpuscular Hemoglobin Concent 35 g/dL (31-37) 35 g/dL (31-37) Red Cell Distribution Width 13.5 % (11.5-14.5) 13.4 % (11.5-14.5) Platelet Count 196 x10^3/uL (140-400) 150 x10^3/uL (140-400) Neutrophils (%) (Auto) 60 % (31-73) 68 % (31-73) Lymphocytes (%) (Auto) 27 % (24-48) 26 % (24-48) Monocytes (%) (Auto) 10 % (0-9) 6 % (0-9) Eosinophils (%) (Auto) 2 % (0-3) 0 % (0-3) Basophils (%) (Auto) 1 % (0-3) 0 % (0-3) Neutrophils # (Auto) 5.3 x10^3/uL (1.8-7.7) 3.9 x10^3/uL (1.8-7.7) Lymphocytes # (Auto) 2.3 x10^3/uL (1.0-4.8) 1.5 x10^3/uL (1.0-4.8) Monocytes # (Auto) 0.9 x10^3/uL (0.0-1.1) 0.3 x10^3/uL (0.0-1.1) Eosinophils # (Auto) 0.2 x10^3/uL (0.0-0.7) 0.0 x10^3/uL (0.0-0.7) Basophils # (Auto) 0.0 x10^3/uL (0.0-0.2) 0.0 x10^3/uL (0.0-0.2) Sodium Level 142 mmol/L (136-145) 142 mmol/L (136-145) Potassium Level 4.2 mmol/L (3.5-5.1) 4.1 mmol/L (3.5-5.1) Chloride Level 108 mmol/L (98-107) 109 mmol/L (98-107) Carbon Dioxide Level 25 mmol/L (21-32) 23 mmol/L (21-32) Anion Gap 9 (6-14) 10 (6-14) Blood Urea Nitrogen 20 mg/dL (8-26) 24 mg/dL (8-26) Creatinine 0.8 mg/dL (0.7-1.3) 0.9 mg/dL (0.7-1.3) Estimated GFR (Cockcroft-Gault) 96.1 83.9 BUN/Creatinine Ratio 25 (6-20) 27 (6-20) Glucose Level 91 mg/dL (70-99) 118 mg/dL (70-99) Calcium Level 8.4 mg/dL (8.5-10.1) 7.9 mg/dL (8.5-10.1) Total Bilirubin 0.3 mg/dL (0.2-1.0) 0.3 mg/dL (0.2-1.0) Aspartate Amino Transf (AST/SGOT) 23 U/L (15-37) 23 U/L (15-37) Alanine Aminotransferase (ALT/SGPT) 32 U/L (16-63) 29 U/L (16-63) Alkaline Phosphatase 75 U/L (46-116) 61 U/L (46-116) Creatine Kinase 195 U/L (39-308) Total Protein 7.0 g/dL (6.4-8.2) 6.2 g/dL (6.4-8.2) Albumin 3.3 g/dL (3.4-5.0) 2.7 g/dL (3.4-5.0) Albumin/Globulin Ratio 0.9 (1.0-1.7) 0.8 (1.0-1.7) Glucose (Fingerstick) 113 mg/dL (70-99) 118 mg/dL (70-99) Laboratory Tests Test 07/20/19 16:34 07/20/19 21:23 07/21/19 06:25 07/21/19 07:50 White Blood Count 8.7 x10^3/uL (4.0-11.0) 5.7 x10^3/uL (4.0-11.0) Red Blood Count 3.96 x10^6/uL (4.30-5.70) 3.53 x10^6/uL (4.30-5.70) Hemoglobin 12.3 g/dL (13.0-17.5) 11.0 g/dL (13.0-17.5) Hematocrit 35.7 % (39.0-53.0) 31.9 % (39.0-53.0) Mean Corpuscular Volume 90 fL (79-100) 90 fL (79-100) Mean Corpuscular Hemoglobin 31 pg (25-35) 31 pg (25-35) Mean Corpuscular Hemoglobin Concent 35 g/dL (31-37) 35 g/dL (31-37) Red Cell Distribution Width 13.5 % (11.5-14.5) 13.4 % (11.5-14.5) Platelet Count 196 x10^3/uL (140-400) 150 x10^3/uL (140-400) Neutrophils (%) (Auto) 60 % (31-73) 68 % (31-73) Lymphocytes (%) (Auto) 27 % (24-48) 26 % (24-48) Monocytes (%) (Auto) 10 % (0-9) 6 % (0-9) Eosinophils (%) (Auto) 2 % (0-3) 0 % (0-3) Basophils (%) (Auto) 1 % (0-3) 0 % (0-3) Neutrophils # (Auto) 5.3 x10^3/uL (1.8-7.7) 3.9 x10^3/uL (1.8-7.7) Lymphocytes # (Auto) 2.3 x10^3/uL (1.0-4.8) 1.5 x10^3/uL (1.0-4.8) Monocytes # (Auto) 0.9 x10^3/uL (0.0-1.1) 0.3 x10^3/uL (0.0-1.1) Eosinophils # (Auto) 0.2 x10^3/uL (0.0-0.7) 0.0 x10^3/uL (0.0-0.7) Basophils # (Auto) 0.0 x10^3/uL (0.0-0.2) 0.0 x10^3/uL (0.0-0.2) Sodium Level 142 mmol/L (136-145) 142 mmol/L (136-145) Potassium Level 4.2 mmol/L (3.5-5.1) 4.1 mmol/L (3.5-5.1) Chloride Level 108 mmol/L (98-107) 109 mmol/L (98-107) Carbon Dioxide Level 25 mmol/L (21-32) 23 mmol/L (21-32) Anion Gap 9 (6-14) 10 (6-14) Blood Urea Nitrogen 20 mg/dL (8-26) 24 mg/dL (8-26) Creatinine 0.8 mg/dL (0.7-1.3) 0.9 mg/dL (0.7-1.3) Estimated GFR (Cockcroft-Gault) 96.1 83.9 BUN/Creatinine Ratio 25 (6-20) 27 (6-20) Glucose Level 91 mg/dL (70-99) 118 mg/dL (70-99) Calcium Level 8.4 mg/dL (8.5-10.1) 7.9 mg/dL (8.5-10.1) Total Bilirubin 0.3 mg/dL (0.2-1.0) 0.3 mg/dL (0.2-1.0) Aspartate Amino Transf (AST/SGOT) 23 U/L (15-37) 23 U/L (15-37) Alanine Aminotransferase (ALT/SGPT) 32 U/L (16-63) 29 U/L (16-63) Alkaline Phosphatase 75 U/L (46-116) 61 U/L (46-116) Creatine Kinase 195 U/L (39-308) Total Protein 7.0 g/dL (6.4-8.2) 6.2 g/dL (6.4-8.2) Albumin 3.3 g/dL (3.4-5.0) 2.7 g/dL (3.4-5.0) Albumin/Globulin Ratio 0.9 (1.0-1.7) 0.8 (1.0-1.7) Glucose (Fingerstick) 113 mg/dL (70-99) 118 mg/dL (70-99) Medications Current Medications Hydromorphone HCl (Dilaudid) 1 mg 1X ONCE IVP Last administered on 07/20/19at 16:09; Start 07/20/19 at 16:00; Stop 07/20/19 at 16:01; Status DC Dexamethasone Sodium Phosphate (Decadron) 10 mg 1X ONCE IV Last administered on 07/20/19at 16:11; Start 07/20/19 at 16:00; Stop 07/20/19 at 16:01; Status DC Hydromorphone HCl (Dilaudid) 1 mg 1X ONCE IVP Last administered on 07/20/19at 16:32; Start 07/20/19 at 16:30; Stop 07/20/19 at 16:31; Status DC Ondansetron HCl (Zofran) 4 mg PRN Q8HRS PRN IV NAUSEA/VOMITING; Start 07/20/19 at 16:45; Stop 07/21/19 at 16:44 Fentanyl Citrate (Fentanyl 2ml Vial) 50 mcg PRN Q1HR PRN IV PAIN Last adm inistered on 07/21/19at 09:19; Start 07/20/19 at 16:45; Stop 07/21/19 at 16:44 Sodium Chloride 1,000 ml @ 125 mls/hr Q8H IV Last administered on 07/21/19at 09:57; Start 07/20/19 at 16:32; Stop 07/21/19 at 16:31 Acetaminophen (Tylenol) 650 mg PRN Q4HRS PRN PO FEVER; Start 07/20/19 at 16:45; Stop 07/21/19 at 16:44 Lorazepam (Ativan Inj) 1 mg PRN Q6HRS PRN IVP ANXIETY / AGITATION; Start 07/20/19 at 16:45 Ketorolac Tromethamine (Toradol 30mg Vial) 30 mg 1X ONCE IVP Last administered on 07/20/19at 21:17; Start 07/20/19 at 21:00; Stop 07/20/19 at 21:01; Status DC Oxycodone/ Acetaminophen (Percocet 10/325) 1 tab PRN Q4HRS PRN PO pain; Start 07/20/19 at 20:30 Amitriptyline HCl (Elavil) 25 mg PRN QHS PRN PO INSOMNIA; Start 07/20/19 at 20:30 Atorvastatin Calcium (Lipitor) 10 mg HS PO Last administered on 07/20/19at 21:17; Start 07/20/19 at 21:00 Potassium Chloride (Klor-Con) 10 meq PRN DAILY PRN PO take with furosemide; Start 07/20/19 at 20:30 Quetiapine Fumarate (SEROquel) 25 mg HS PO Last administered on 07/20/19at 21:17; Start 07/20/19 at 21:00 Tizanidine HCl (Zanaflex) 4 mg PRN TID PRN PO MUSCLE SPASMS; Start 07/20/19 at 20:30 Tamsulosin HCl (Flomax) 0.4 mg QHS PO ; Start 07/21/19 at 21:00 Tamsulosin HCl (Flomax) 0.4 mg 1X ONCE PO Last administered on 07/20/19at 22:01; Start 07/20/19 at 22:00; Stop 07/20/19 at 22:01; Status DC Nicotine (Nicoderm Cq 21mg) 1 patch PRN DAILY PRN TD SMOKING CESSATION; Start 07/20/19 at 21:30 Nicotine Polacrilex (Nicorette Gum) 1 each PRN Q1HR PRN BC SMOKING CESSATION; Start 07/20/19 at 21:30 Enoxaparin Sodium (Lovenox Per Pharmacy Prophylaxis Dosing) 1 each PRN DAILY PRN MC SEE COMMENTS; Start 07/20/19 at 21:30 Enoxaparin Sodium (Lovenox 40mg Syringe) 40 mg Q12HR SQ Last administered on 07/21/19at 09:17; Start 07/20/19 at 22:00 Gabapentin (Neurontin) 300 mg DAILY PO Last administered on 07/21/19at 09:59; Start 07/21/19 at 09:15 Methocarbamol (Robaxin) 1,500 mg PRN TID PRN PO MUSCLE SPASMS Last administered on 07/21/19at 09:59; Start 07/21/19 at 09:15 Active Scripts Active Potassium Chloride (Potassium Chloride) 10 Meq Tab.sr.24h 10 Meq PO DAILY PRN 30 Days Furosemide 40 Mg Tablet 1 Tab PO DAILY PRN 30 Days Reported Vitamin C (Ascorbic Acid) 500 Mg Capsule.er 500 Mg PO DAILY Quetiapine Fumarate 25 Mg Tablet 25 Mg PO HS Tizanidine Hcl 4 Mg Tablet 4 Mg PO TID PRN Atorvastatin Calcium 10 Mg Tablet 10 Mg PO HS Amitriptyline Hcl 25 Mg Tablet 1 Tab PO QHS PRN Vitals/I & O Vital Sign - Last 24 Hours 07/20/19 07/20/19 07/20/19 07/20/19 15:41 16:09 16:26 16:32 Temp 97.1 97.1 Pulse 86 80 Resp 22 B/P (MAP) 209/88 (128) Pulse Ox 97 92 O2 Delivery Room Air Room Air Room Air 07/20/19 07/20/19 07/20/19 07/20/19 17:45 19:00 19:30 20:22 Temp 98.2 97.6 98.2 97.6 Pulse 65 67 Resp 16 20 20 B/P (MAP) 147/53 (84) 140/50 (80) Pulse Ox 98 91 98 O2 Delivery Nasal Cannula Room Air Room Air Room Air O2 Flow Rate 2.0 07/20/19 07/20/19 07/21/19 07/21/19 20:52 23:00 03:00 07:00 Temp 98.2 97.7 98.2 98.2 97.7 98.2 Pulse 62 50 58 Resp 18 16 16 18 B/P (MAP) 144/61 (88) 97/37 (57) 113/36 (61) Pulse Ox 98 94 97 93 O2 Delivery Room Air Room Air Room Air O2 Flow Rate 2.0 07/21/19 07/21/19 09:19 09:59 O2 Delivery Room Air Room Air Intake and Output 07/20/19 07/20/19 07/21/19 15:00 23:00 07:00 Intake Total 120 ml 700 ml Balance 120 ml 700 ml ROCCO KAMINSKI MD Jul 21, 2019 10:17
[2019-07-21 11:00] VITALS: BP 110/39
[2019-07-21 15:00] VITALS: BP 144/62
[2019-07-21] MEDS: oxyCODONE/APAP 10/325 1 TAB TABLET PO PRN (18:04)
[2019-07-21 19:00] VITALS: BP 116/36
[2019-07-21] MEDS: ATORVASTATIN CALCIUM 10 MG TABLET. PO SCH (20:36)
[2019-07-21] MEDS: TAMSULOSIN 0.4 MG CAP.ER.24H. PO SCH (20:36)
[2019-07-21] MEDS: QUEtiapine 25 MG TABLET. PO SCH (20:36)
[2019-07-21] MEDS: tiZANidine 4 MG TABLET. PO PRN (20:36)
[2019-07-21 23:00] VITALS: BP 108/40
[2019-07-22] MEDS: oxyCODONE/APAP 10/325 1 TAB TABLET PO PRN ×4 (01:11→21:52)
[2019-07-22 03:00] VITALS: BP 132/56
[2019-07-22 07:00] VITALS: BP 143/67
[2019-07-22] MEDS: GABAPENTIN 300 MG CAPSULE. PO SCH (09:35)
[2019-07-22] MEDS: ENOXAPARIN 40 MG/0.4 ML SYRINGE. SQ SCH ×2 (09:35→21:51)
[2019-07-22 11:00] VITALS: BP 133/49
--- NOTE | 2019-07-22 12:13 | PDOC ---
PROGRESS NOTES Chief Complaint Chief Complaint Intractable back pain with sciatica, known to Dr. James, has done joint injections previously, awaiting consultation from neurosurgery given his fecal and urinary incontinence tobacco use disorder, replacement fall, back injury, pain control morbid obesity, BMI 45 lymphedema, will consult OT lymph, I don't think this is cellulitic, but he needs lymphedema wraps weakness, pt and ot BPH, slow, infreq, will scan protocol, restart flomax Unable to walk - will have PT work with him - able to walk after PMR treatment - back brace and walker at home Fecal incontinence - is urgency, with history of constipation - will actually start bowel regimen outpatient Urinary urgency - 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 Started flomax nightly Plan will start gabapentin for better pain management pain management resume home meds awaiting for consultation reassess in the am DVT prophylaxis: History of Present Illness History of Present Illness Mr Mcclure is a 69 yo M w/ PMHx chronic lymphedema, chronic lower back pain who presents with low back pain. Patient was unable to get up off the floor. He noted right LE weakness and pain with this episode. Notes he has been seeing pain management with recent 7 day relief after sciatic nerve injection, notes he did not think he remembered relief with LESI. In 2018 he was able to lay flat for MRI, DDD noted as well as moderate lumbar spinal stenosis and right L5-S1 facet. He has been urinating frequently. Seen by OT recommending lymphedema press previously. He and his significant other note urinary and fecal incontinence at home. Patient in acute distress during my visit. Patient in great distress due to the pain from his sciatica, reassurance provided, plan of care in detail. All concerns addressed to the best of my abilities. No CP or SOB. Not able to stand unaided with me. Vitals Vitals Vital Signs Date Time Temp Pulse Resp B/P (MAP) Pulse Ox O2 Delivery O2 Flow Rate FiO2 07/22/19 11:00 97.6 70 16 133/49 (77) 91 Room Air 97.6 07/22/19 10:40 2.0 Physical Exam General: Oriented X3, Cooperative, mild distress, moderate distress Lungs: Clear, Other Abdomen: Normal bowel sounds (obese, ), Soft Extremities: Normal pulses, Other (marked LE edema, 4+ with dystrophic nails, ) Skin: No breakdown, Other (thickened licenoid skin to heels and feet) Labs LABS Laboratory Tests Test 07/21/19 16:41 07/21/19 20:41 07/22/19 07:50 07/22/19 11:42 Glucose (Fingerstick) 92 mg/dL (70-99) 102 mg/dL (70-99) 80 mg/dL (70-99) 90 mg/dL (70-99) Assessment and Plan Assessmemt and Plan Problems Medical Problems: (1) Intractable low back pain Status: Acute (2) Sciatica of left side Status: Acute Comment Review of Relevant I have reviewed the following items otilio (where applicable) has been applied. Labs Laboratory Tests Test 07/20/19 16:34 07/20/19 21:23 07/21/19 06:25 07/21/19 07:50 White Blood Count 8.7 x10^3/uL (4.0-11.0) 5.7 x10^3/uL (4.0-11.0) Red Blood Count 3.96 x10^6/uL (4.30-5.70) 3.53 x10^6/uL (4.30-5.70) Hemoglobin 12.3 g/dL (13.0-17.5) 11.0 g/dL (13.0-17.5) Hematocrit 35.7 % (39.0-53.0) 31.9 % (39.0-53.0) Mean Corpuscular Volume 90 fL (79-100) 90 fL (79-100) Mean Corpuscular Hemoglobin 31 pg (25-35) 31 pg (25-35) Mean Corpuscular Hemoglobin Concent 35 g/dL (31-37) 35 g/dL (31-37) Red Cell Distribution Width 13.5 % (11.5-14.5) 13.4 % (11.5-14.5) Platelet Count 196 x10^3/uL (140-400) 150 x10^3/uL (140-400) Neutrophils (%) (Auto) 60 % (31-73) 68 % (31-73) Lymphocytes (%) (Auto) 27 % (24-48) 26 % (24-48) Monocytes (%) (Auto) 10 % (0-9) 6 % (0-9) Eosinophils (%) (Auto) 2 % (0-3) 0 % (0-3) Basophils (%) (Auto) 1 % (0-3) 0 % (0-3) Neutrophils # (Auto) 5.3 x10^3/uL (1.8-7.7) 3.9 x10^3/uL (1.8-7.7) Lymphocytes # (Auto) 2.3 x10^3/uL (1.0-4.8) 1.5 x10^3/uL (1.0-4.8) Monocytes # (Auto) 0.9 x10^3/uL (0.0-1.1) 0.3 x10^3/uL (0.0-1.1) Eosinophils # (Auto) 0.2 x10^3/uL (0.0-0.7) 0.0 x10^3/uL (0.0-0.7) Basophils # (Auto) 0.0 x10^3/uL (0.0-0.2) 0.0 x10^3/uL (0.0-0.2) Sodium Level 142 mmol/L (136-145) 142 mmol/L (136-145) Potassium Level 4.2 mmol/L (3.5-5.1) 4.1 mmol/L (3.5-5.1) Chloride Level 108 mmol/L (98-107) 109 mmol/L (98-107) Carbon Dioxide Level 25 mmol/L (21-32) 23 mmol/L (21-32) Anion Gap 9 (6-14) 10 (6-14) Blood Urea Nitrogen 20 mg/dL (8-26) 24 mg/dL (8-26) Creatinine 0.8 mg/dL (0.7-1.3) 0.9 mg/dL (0.7-1.3) Estimated GFR (Cockcroft-Gault) 96.1 83.9 BUN/Creatinine Ratio 25 (6-20) 27 (6-20) Glucose Level 91 mg/dL (70-99) 118 mg/dL (70-99) Calcium Level 8.4 mg/dL (8.5-10.1) 7.9 mg/dL (8.5-10.1) Total Bilirubin 0.3 mg/dL (0.2-1.0) 0.3 mg/dL (0.2-1.0) Aspartate Amino Transf (AST/SGOT) 23 U/L (15-37) 23 U/L (15-37) Alanine Aminotransferase (ALT/SGPT) 32 U/L (16-63) 29 U/L (16-63) Alkaline Phosphatase 75 U/L (46-116) 61 U/L (46-116) Creatine Kinase 195 U/L (39-308) Total Protein 7.0 g/dL (6.4-8.2) 6.2 g/dL (6.4-8.2) Albumin 3.3 g/dL (3.4-5.0) 2.7 g/dL (3.4-5.0) Albumin/Globulin Ratio 0.9 (1.0-1.7) 0.8 (1.0-1.7) Glucose (Fingerstick) 113 mg/dL (70-99) 118 mg/dL (70-99) Test 07/21/19 11:42 07/21/19 16:41 07/21/19 20:41 07/22/19 07:50 Glucose (Fingerstick) 100 mg/dL (70-99) 92 mg/dL (70-99) 102 mg/dL (70-99) 80 mg/dL (70-99) Test 07/22/19 11:42 Glucose (Fingerstick) 90 mg/dL (70-99) Laboratory Tests Test 07/21/19 16:41 07/21/19 20:41 07/22/19 07:50 07/22/19 11:42 Glucose (Fingerstick) 92 mg/dL (70-99) 102 mg/dL (70-99) 80 mg/dL (70-99) 90 mg/dL (70-99) Medications Current Medications Hydromorphone HCl (Dilaudid) 1 mg 1X ONCE IVP Last administered on 07/20/19at 16:09; Start 07/20/19 at 16:00; Stop 07/20/19 at 16:01; Status DC Dexamethasone Sodium Phosphate (Decadron) 10 mg 1X ONCE IV Last administered on 07/20/19at 16:11; Start 07/20/19 at 16:00; Stop 07/20/19 at 16:01; Status DC Hydromorphone HCl (Dilaudid) 1 mg 1X ONCE IVP Last administered on 07/20/19at 16:32; Start 07/20/19 at 16:30; Stop 07/20/19 at 16:31; Status DC Ondansetron HCl (Zofran) 4 mg PRN Q8HRS PRN IV NAUSEA/VOMITING; Start 07/20/19 at 16:45; Stop 07/21/19 at 16:44; Status DC Fentanyl Citrate (Fentanyl 2ml Vial) 50 mcg PRN Q1HR PRN IV PAIN Last administered on 07/21/19at 09:19; Start 07/20/19 at 16:45; Stop 07/21/19 at 16:4 4; Status DC Sodium Chloride 1,000 ml @ 125 mls/hr Q8H IV Last administered on 07/21/19at 09:57; Start 07/20/19 at 16:32; Stop 07/21/19 at 16:31; Status DC Acetaminophen (Tylenol) 650 mg PRN Q4HRS PRN PO FEVER; Start 07/20/19 at 16:45; Stop 07/21/19 at 16:44; Status DC Lorazepam (Ativan Inj) 1 mg PRN Q6HRS PRN IVP ANXIETY / AGITATION; Start 07/20/19 at 16:45 Ketorolac Tromethamine (Toradol 30mg Vial) 30 mg 1X ONCE IVP Last administered on 07/20/19at 21:17; Start 07/20/19 at 21:00; Stop 07/20/19 at 21:01; Status DC Oxycodone/ Acetaminophen (Percocet 10/325) 1 tab PRN Q4HRS PRN PO pain Last administered on 07/22/19at 09:38; Start 07/20/19 at 20:30 Amitriptyline HCl (Elavil) 25 mg PRN QHS PRN PO INSOMNIA; Start 07/20/19 at 20:30 Atorvastatin Calcium (Lipitor) 10 mg HS PO Last administered on 07/21/19at 20:36; Start 07/20/19 at 21:00 Potassium Chloride (Klor-Con) 10 meq PRN DAILY PRN PO take with furosemide; Start 07/20/19 at 20:30 Quetiapine Fumarate (SEROquel) 25 mg HS PO Last administered on 07/21/19at 20:36; Start 07/20/19 at 21:00 Tizanidine HCl (Zanaflex) 4 mg PRN TID PRN PO MUSCLE SPASMS- 1ST CHOICE Last administered on 07/21/19at 20:36; Start 07/20/19 at 20:30 Tamsulosin HCl (Flomax) 0.4 mg QHS PO Last administered on 07/21/19at 20:36; Start 07/21/19 at 21:00 Tamsulosin HCl (Flomax) 0.4 mg 1X ONCE PO Last administered on 07/20/19at 22:01; Start 07/20/19 at 22:00; Stop 07/20/19 at 22:01; Status DC Nicotine (Nicoderm Cq 21mg) 1 patch PRN DAILY PRN TD SMOKING CESSATION; Start 07/20/19 at 21:30 Nicotine Polacrilex (Nicorette Gum) 1 each PRN Q1HR PRN BC SMOKING CESSATION; Start 07/20/19 at 21:30 Enoxaparin Sodium (Lovenox Per Pharmacy Prophylaxis Dosing) 1 each PRN DAILY PRN MC SEE COMMENTS; Start 07/20/19 at 21:30 Enoxaparin Sodium (Lovenox 40mg Syringe) 40 mg Q12HR SQ Last administered on 07/22/19at 09:35; Start 07/20/19 at 22:00 Gabapentin (Neurontin) 300 mg DAILY PO Last administered on 07/22/19at 09:35; Start 07/21/19 at 09:15 Methocarbamol (Robaxin) 1,500 mg PRN TID PRN PO MUSCLE SPASMS Last administered on 07/21/19at 18:03; Start 07/21/19 at 09:15 Active Scripts Active Potassium Chloride (Potassium Chloride) 10 Meq Tab.sr.24h 10 Meq PO DAILY PRN 30 Days Furosemide 40 Mg Tablet 1 Tab PO DAILY PRN 30 Days Reported Vitamin C (Ascorbic Acid) 500 Mg Capsule.er 500 Mg PO DAILY Quetiapine Fumarate 25 Mg Tablet 25 Mg PO HS Tizanidine Hcl 4 Mg Tablet 4 Mg PO TID PRN Atorvastatin Calcium 10 Mg Tablet 10 Mg PO HS Amitriptyline Hcl 25 Mg Tablet 1 Tab PO QHS PRN Vitals/I & O Vital Sign - Last 24 Hours 07/21/19 07/21/19 07/21/19 07/21/19 15:00 18:04 19:00 19:31 Temp 97.3 97.9 97.3 97.9 Pulse 63 64 Resp 18 18 B/P (MAP) 144/62 (89) 116/36 (62) Pulse Ox 94 91 O2 Delivery Room Air Room Air Room Air Room Air 07/21/19 07/21/19 07/21/19 07/22/19 20:05 21:41 23:00 01:11 Temp 97.7 97.7 Pulse 46 Resp 16 18 B/P (MAP) 108/40 (62) Pulse Ox 92 O2 Delivery Room Air Room Air Room Air Room Air 07/22/19 07/22/19 07/22/19 07/22/19 02:54 03:00 07:00 10:40 Temp 97.7 97.4 97.7 97.4 Pulse 65 65 Resp 18 16 18 B/P (MAP) 132/56 (81) 143/67 (92) Pulse Ox 92 92 94 94 O2 Delivery Room Air Room Air Room Air Room Air O2 Flow Rate 2.0 07/22/19 11:00 Temp 97.6 97.6 Pulse 70 Resp 16 B/P (MAP) 133/49 (77) Pulse Ox 91 O2 Delivery Room Air Intake and Output 07/21/19 07/21/19 07/22/19 15:00 23:00 07:00 Intake Total 360 ml 180 ml Output Total 300 ml Balance 360 ml -120 ml MIGUEL ANGEL AMBRIZ MD Jul 22, 2019 12:13
[2019-07-22 15:00] VITALS: BP 138/53
[2019-07-22] MEDS: methylPREDNISolone SOD SUCC PF 40 MG/ML VIAL. IV SCH ×2 (15:29→21:53)
--- NOTE | 2019-07-22 15:41 | PDOC ---
Provider Note Provider Note patient seen and examined c/o chronic back and left leg pain and 2 week history urinary incontinence Reviewed Lumbar MRI from 2017 non focal exam, no tenderness with palpation of lower lumbar spine but reports that he is unable to lie on his back due to pain Will need new Lumbar MRI with anesthesia scheduled for 07/22 at 1130 will follow BECKY MARTINEZ MD Jul 22, 2019 15:41
--- NOTE | 2019-07-22 16:01 | PDOC ---
SUBJECTIVE Subjective Low back and left leg pain OBJECTIVE Objective 69-yo male C/O severe and intractable back pain, He has history of multiple chronic medical problems including chronic back pain with sciatica. He reports worsening back pain and left leg pain today. No new injuries, accidents. Fell out of a chair and hit his head, because the pain in left leg not allowing wt. bearing. Vital Signs Vital Signs Date Time Temp Pulse Resp B/P (MAP) Pulse Ox O2 Delivery O2 Flow Rate FiO2 07/22/19 15:00 97.6 71 18 138/53 (81) 93 Room Air 97.6 07/22/19 11:00 97.6 70 16 133/49 (77) 91 Room Air 97.6 07/22/19 10:40 94 Room Air 2.0 07/22/19 07:00 97.4 65 18 143/67 (92) 94 Room Air 97.4 07/22/19 03:00 97.7 65 16 132/56 (81) 92 Room Air 97.7 07/22/19 02:54 18 92 Room Air 07/22/19 01:11 18 Room Air 07/21/19 23:00 97.7 46 16 108/40 (62) 92 Room Air 97.7 07/21/19 21:41 Room Air 07/21/19 20:05 Room Air 07/21/19 19:31 Room Air 07/21/19 19:00 97.9 64 18 116/36 (62) 91 Room Air 97.9 07/21/19 18:04 Room Air I & O Intake and Output 07/22/19 07:00 Intake Total 540 ml Output Total 300 ml Balance 240 ml Intake Oral 540 ml Output Urine Total 300 ml ASSESSMENT/PLAN Assessment/Plan Pt. known to me- has benefitted from LESI in past. MRI pending 07/23/19 If no surgical lesion, will plan LESI as outpt. COMMENT Lab Laboratory Tests Test 07/21/19 16:41 07/21/19 20:41 07/22/19 07:50 07/22/19 11:42 Glucose (Fingerstick) 92 mg/dL (70-99) 102 mg/dL (70-99) 80 mg/dL (70-99) 90 mg/dL (70-99) RENETTA BARRAZA MD Jul 22, 2019 16:01
[2019-07-22] MEDS: tiZANidine 4 MG TABLET. PO PRN ×2 (17:39→21:52)
[2019-07-22 19:00] VITALS: BP 153/50
[2019-07-22] MEDS: TAMSULOSIN 0.4 MG CAP.ER.24H. PO SCH (21:51)
[2019-07-22] MEDS: ATORVASTATIN CALCIUM 10 MG TABLET. PO SCH (21:53)
[2019-07-22] MEDS: QUEtiapine 25 MG TABLET. PO SCH (21:53)
[2019-07-22] MEDS: METHOCARBAMOL 750 MG TABLET PO PRN (22:38)
[2019-07-22 23:00] VITALS: BP 134/53
[2019-07-23 03:00] VITALS: BP 148/56
[2019-07-23] MEDS: oxyCODONE/APAP 10/325 1 TAB TABLET PO PRN ×2 (03:13→17:42)
[2019-07-23] MEDS: methylPREDNISolone SOD SUCC PF 40 MG/ML VIAL. IV SCH (06:54)
[2019-07-23 07:00] VITALS: BP 137/46
--- NOTE | 2019-07-23 08:37 | PDOC ---
PROGRESS NOTES Chief Complaint Chief Complaint Intractable back pain with sciatica, known to Dr. James, has done joint injections previously, awaiting consultation from neurosurgery given his fecal and urinary incontinence tobacco use disorder, replacement fall, back injury, pain control morbid obesity, BMI 45 lymphedema, will consult OT lymph, I don't think this is cellulitic, but he needs lymphedema wraps weakness, pt and ot BPH, slow, infreq, will scan protocol, restart flomax Unable to walk - will have PT work with him - able to walk after PMR treatment - back brace and walker at home Fecal incontinence - is urgency, with history of constipation - will actually start bowel regimen outpatient 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 Patient was unable to get up off the floor. He noted right LE weakness and pain with this episode. Notes he has been seeing pain management with recent 7 day relief after sciatic nerve injection, notes he did not think he remembered relief with LESI. In 2018 he was able to lay flat for MRI, DDD noted as well as moderate lumbar spinal stenosis and right L5-S1 facet. He has been urinating frequently. Seen by OT recommending lymphedema press previously. He and his significant other note urinary and fecal incontinence at home. 07/21: Patient in acute distress during my visit. Patient in great distress due to the pain from his sciatica, reassurance provided, plan of care in detail. All concerns addressed to the best of my abilities. No CP or SOB. Not able to stand unaided with me MRI completed with L5-S1 severe right foraminal stenosis. I have advised him as his symptoms are left sided sciatica he has no immediate surgical issues. He is interested in outpatient therapy. OT has performed lymphedema wraps. Vitals Vitals Vital Signs Date Time Temp Pulse Resp B/P (MAP) Pulse Ox O2 Delivery O2 Flow Rate FiO2 07/23/19 07:00 97.4 59 19 137/46 (76) 95 Room Air 97.4 07/23/19 04:13 2.0 Physical Exam General: Oriented X3, Cooperative, mild distress, moderate distress Lungs: Clear, Other Abdomen: Normal bowel sounds (obese, ), Soft Extremities: Normal pulses, Other (marked LE edema, 4+ with dystrophic nails, ) Skin: No breakdown, Other (thickened licenoid skin to heels and feet) Labs LABS Laboratory Tests Test 07/22/19 11:42 Glucose (Fingerstick) 90 mg/dL (70-99) Assessment and Plan Assessmemt and Plan Problems Medical Problems: (1) Intractable low back pain Status: Acute (2) Sciatica of left side Status: Acute Comment Review of Relevant I have reviewed the following items otilio (where applicable) has been applied. Labs Laboratory Tests Test 07/21/19 11:42 07/21/19 16:41 07/21/19 20:41 07/22/19 07:50 Glucose (Fingerstick) 100 mg/dL (70-99) 92 mg/dL (70-99) 102 mg/dL (70-99) 80 mg/dL (70-99) Test 07/22/19 11:42 Glucose (Fingerstick) 90 mg/dL (70-99) Laboratory Tests Test 07/22/19 11:42 Glucose (Fingerstick) 90 mg/dL (70-99) Medications Current Medications Hydromorphone HCl (Dilaudid) 1 mg 1X ONCE IVP Last administered on 07/20/19at 16:09; Start 07/20/19 at 16:00; Stop 07/20/19 at 16:01; Status DC Dexamethasone Sodium Phosphate (Decadron) 10 mg 1X ONCE IV Last administered on 07/20/19at 16:11; Start 07/20/19 at 16:00; Stop 07/20/19 at 16:01; Status DC Hydromorphone HCl (Dilaudid) 1 mg 1X ONCE IVP Last administered on 07/20/19at 16:32; Start 07/20/19 at 16:30; Stop 07/20/19 at 16:31; Status DC Ondansetron HCl (Zofran) 4 mg PRN Q8HRS PRN IV NAUSEA/VOMITING; Start 07/20/19 at 16:45; Stop 07/21/19 at 16:44; Status DC Fentanyl Citrate (Fentanyl 2ml Vial) 50 mcg PRN Q1HR PRN IV PAIN Last administered on 07/21/19at 09:19; Start 07/20/19 at 16:45; Stop 07/21/19 at 16:44; Status DC Sodium Chloride 1,000 ml @ 125 mls/hr Q8H IV Last administered on 07/21/19at 09:57; Start 07/20/19 at 16:32; Stop 07/21/19 at 16:31; Status DC Acetaminophen (Tylenol) 650 mg PRN Q4HRS PRN PO FEVER; Start 07/20/19 at 16:45; Stop 07/21/19 at 16:44; Status DC Lorazepam (Ativan Inj) 1 mg PRN Q6HRS PRN IVP ANXIETY / AGITATION; Start 07/20/19 at 16:45 Ketorolac Tromethamine (Toradol 30mg Vial) 30 mg 1X ONCE IVP Last administered on 07/20/19at 21:17; Start 07/20/19 at 21:00; Stop 07/20/19 at 21:01; Status DC Oxycodone/ Acetaminophen (Percocet 10/325) 1 tab PRN Q4HRS PRN PO pain Last administered on 07/23/19at 03:13; Start 07/20/19 at 20:30 Amitriptyline HCl (Elavil) 25 mg PRN QHS PRN PO INSOMNIA; Start 07/20/19 at 20:30 Atorvastatin Calcium (Lipitor) 10 mg HS PO Last administered on 07/22/19at 21:53; Start 07/20/19 at 21:00 Potassium Chloride (Klor-Con) 10 meq PRN DAILY PRN PO take with furosemide; Start 07/20/19 at 20:30 Quetiapine Fumarate (SEROquel) 25 mg HS PO Last administered on 07/22/19at 21:53; Start 07/20/19 at 21:00 Tizanidine HCl (Zanaflex) 4 mg PRN TID PRN PO MUSCLE SPASMS- 1ST CHOICE Last administered on 07/22/19at 21:52; Start 07/20/19 at 20:30 Tamsulosin HCl (Flomax) 0.4 mg QHS PO Last administered on 07/22/19at 21:51; Start 07/21/19 at 21:00 Tamsulosin HCl (Flomax) 0.4 mg 1X ONCE PO Last administered on 07/20/19at 22:01; Start 07/20/19 at 22:00; Stop 07/20/19 at 22:01; Status DC Nicotine (Nicoderm Cq 21mg) 1 patch PRN DAILY PRN TD SMOKING CESSATION; Start 07/20/19 at 21:30 Nicotine Polacrilex (Nicorette Gum) 1 each PRN Q1HR PRN BC SMOKING CESSATION; Start 07/20/19 at 21:30 Enoxaparin Sodium (Lovenox Per Pharmacy Prophylaxis Dosing) 1 each PRN DAILY PRN MC SEE COMMENTS; Start 07/20/19 at 21:30 Enoxaparin Sodium (Lovenox 40mg Syringe) 40 mg Q12HR SQ Last administered on 07/22/19at 21:51; Start 07/20/19 at 22:00 Gabapentin (Neurontin) 300 mg DAILY PO Last administered on 07/22/19at 09:35; Start 07/21/19 at 09:15 Methocarbamol (Robaxin) 1,500 mg PRN TID PRN PO MUSCLE SPASMS (2nd Choice) Last administered on 07/22/19at 22:38; Start 07/21/19 at 09:15 Methylprednisolone Sodium Succinate (SOLU-Medrol 40MG VIAL) 40 mg Q8HRS IV Last administered on 07/23/19at 06:54; Start 07/22/19 at 14:00; Stop 07/23/19 at 06:01; Status DC Active Scripts Active Potassium Chloride (Potassium Chloride) 10 Meq Tab.sr.24h 10 Meq PO DAILY PRN 30 Days Furosemide 40 Mg Tablet 1 Tab PO DAILY PRN 30 Days Reported Vitamin C (Ascorbic Acid) 500 Mg Capsule.er 500 Mg PO DAILY Quetiapine Fumarate 25 Mg Tablet 25 Mg PO HS Tizanidine Hcl 4 Mg Tablet 4 Mg PO TID PRN Atorvastatin Calcium 10 Mg Tablet 10 Mg PO HS Amitriptyline Hcl 25 Mg Tablet 1 Tab PO QHS PRN Vitals/I & O Vital Sign - Last 24 Hours 07/22/19 07/22/19 07/22/19 07/22/19 10:40 11:00 15:00 18:40 Temp 97.6 97.6 97.6 97.6 Pulse 70 71 Resp 16 18 18 B/P (MAP) 133/49 (77) 138/53 (81) Pulse Ox 94 91 93 93 O2 Delivery Room Air Room Air Room Air Room Air O2 Flow Rate 2.0 2.0 07/22/19 07/22/19 07/22/19 07/22/19 19:00 20:00 21:52 22:52 Temp 98.0 98.0 Pulse 58 Resp 18 18 18 B/P (MAP) 153/50 (84) Pulse Ox 94 94 94 O2 Delivery Room Air Room Air Room Air Room Air O2 Flow Rate 2.0 2.0 07/22/19 07/23/19 07/23/19 07/23/19 23:00 03:00 03:13 04:13 Temp 98.2 97.7 98.2 97.7 Pulse 55 65 Resp 18 18 18 18 B/P (MAP) 134/53 (80) 148/56 (86) Pulse Ox 92 96 92 92 O2 Delivery Room Air Room Air Room Air Room Air O2 Flow Rate 2.0 2.0 07/23/19 07:00 Temp 97.4 97.4 Pulse 59 Resp 19 B/P (MAP) 137/46 (76) Pulse Ox 95 O2 Delivery Room Air Intake and Output 07/22/19 07/22/19 07/23/19 15:00 23:00 07:00 Intake Total 240 ml 170 ml Output Total 500 ml Balance 240 ml 170 ml -500 ml MIGUEL ANGEL AMBRIZ MD Jul 23, 2019 08:37
[2019-07-23] MEDS ORDERED: PROPOFOL 10 MG/ML (20ML) VIAL. IV ONE (09:00)
[2019-07-23] MEDS ORDERED: KETAMINE HCL IN NACL, ISO-OSM 50 MG/5 ML SYRINGE ONE (10:27)
[2019-07-23] MEDS ORDERED: fentaNYL PF VIAL 250 MCG/5 ML VIAL ONE (10:27)
[2019-07-23] MEDS ORDERED: MIDAZOLAM HCL/PF 2 MG/2 ML VIAL. ONE (10:27)
[2019-07-23 11:00] VITALS: BP 140/48
--- NOTE | 2019-07-23 12:03 | RAD ---
EXAM: MRI Lumbar Spine without IV contrast INDICATION: Back and leg pain. Urine and fecal incontinence.. TECHNIQUE: Sagittal T1-w, T2-w, and STIR images, and axial T1-w and T2-w images of the lumbar spine. COMPARISON: None FINDINGS: There is motion artifact degrading image quality on multiple sequences. The lowest fully formed disc is referred to as the L5-S1 level. ALIGNMENT: Alignment is within normal limits. OSSEOUS: No evidence of fracture or bone destruction. Marrow signal is within normal limits. CONUS MEDULLARIS & CAUDA EQUINA: The conus medullaris is in normal position. The conus medullaris and cauda equina are intrinsically normal. SOFT TISSUES: Unremarkable. DISC LEVELS: T12-L1: Unremarkable. L1-L2: Mild disc desiccation and loss of height at no significant stenosis. L2-L3: Diffuse disc desiccation with loss of height results in bulge and moderate bilateral foraminal narrowing. L3-L4: Diffuse disc desiccation and mild loss of height results in mild bilateral foraminal narrowing. Mild bilateral lateral recess narrowing. L4-L5: Disc osteophyte complex with asymmetric bulge asymmetric to narrowing the right greater than left bilateral lateral recesses and the bilateral neural foramina. There is mild narrowing of the central canal at this level with the AP diameter measuring 8 mm. Extraforaminal disc protrusion encroaches on the exiting right L4 nerve root on images 17 and 18 on axial series 10. L5-S1: Diffuse disc desiccation and loss of height along with right greater than left bilateral facet hypertrophy results in severe right foraminal narrowing and moderate left foraminal stenosis. The central canal is patent. IMPRESSION: Motion degraded examination showing most mild central canal narrowing at the L4-L5 level but multilevel lumbar spinal degenerative spondylosis resulting in varying degrees of primarily foraminal stenosis, including severe right foraminal stenosis at L5-S1. Electronically signed by: Annelise Cuevas MD (07/23/2019 11:59 AM) [id number]
[2019-07-23] MEDS: GABAPENTIN 300 MG CAPSULE. PO SCH (12:31)
[2019-07-23] MEDS: ENOXAPARIN 40 MG/0.4 ML SYRINGE. SQ SCH (12:31)
[2019-07-23 15:00] VITALS: BP 153/43
[2019-07-23] MEDS ORDERED: OXYC1TAB22 PO (15:47)
[2019-07-23] MEDS ORDERED: PRED20TA PO (15:47)
[2019-07-23] MEDS ORDERED: GABA300C18 PO (15:47)
[2019-07-23] MEDS ORDERED: TAMS0.4C97 PO (15:47)
--- NOTE | 2019-07-23 15:53 | PDOC3 ---
Discharge Summary Visit Information Date of Admission: Jul 20, 2019 Date of Discharge: Jul 23, 2019 Admitting Diagnosis: Intractable left leg pain Final Diagnosis Problems Medical Problems: (1) Intractable low back pain Status: Acute (2) Sciatica of left side Status: Acute Brief Hospital Course Allergies Allergies Coded Allergies Type Severity Reaction Last Updated Verified No Known Drug Allergies 04/17/18 No Vital Signs Vital Signs Date Time Temp Pulse Resp B/P (MAP) Pulse Ox O2 Delivery O2 Flow Rate FiO2 07/23/19 15:00 97.6 87 19 153/43 (79) 93 Room Air 97.6 07/23/19 11:29 10 Lab Results Laboratory Tests Test 07/21/19 16:41 07/21/19 20:41 07/22/19 07:50 07/22/19 11:42 Glucose (Fingerstick) 92 mg/dL (70-99) 102 mg/dL (70-99) 80 mg/dL (70-99) 90 mg/dL (70-99) Brief Hospital Course Mr Mcclure is a 69 yo M w/ PMHx chronic lymphedema, chronic lower back pain who pre sents with low back pain. Patient was unable to get up off the floor. He noted right LE weakness and pain with this episode. Notes he has been seeing pain management with recent 7 day relief after sciatic nerve injection, notes he did not think he remembered relief with LESI. In 2018 he was able to lay flat for MRI, DDD noted as well as moderate lumbar spinal stenosis and right L5-S1 facet. He has been urinating frequently. Seen by OT recommending lymphedema press previously. He and his significant other note urinary and fecal incontinence at home. 07/21: Patient in acute distress during my visit. Patient in great distress due to the pain from his sciatica, reassurance provided, plan of care in detail. All concerns addressed to the best of my abilities. No CP or SOB. Not able to stand unaided with me MRI completed with L5-S1 severe right foraminal stenosis. I have advised him as his symptoms are left sided sciatica he has no immediate surgical issues. He is interested in outpatient therapy. OT has performed lymphedema wraps. Problem list: Intractable back pain with sciatica, known to Dr. James, has done joint injections previously, awaiting consultation from neurosurgery given his fecal and urinary incontinence, but with MRI negative, he may discharge tobacco use disorder, replacement fall, back injury, pain control morbid obesity, BMI 45 lymphedema, will consult OT lymph, I don't think this is cellulitic, but he needs lymphedema wraps weakness, pt and ot BPH, slow, infreq, will scan protocol, restart flomax Unable to walk - will have PT work with him - able to walk after PMR treatment - back brace and walker at home Fecal incontinence - is urgency, with history of constipation - will actually start bowel regimen outpatient Urinary urgency - 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 Started flomax nightly Plan will start gabapentin for better pain management pain management resume home meds Greater than 30 minutes spent on d/c Discharge Information Condition at Discharge: Improved Follow Up: Weeks (1) Disposition/Orders: D/C to Home Scheduled Ascorbic Acid (Vitamin C) 500 Mg Capsule.er, 500 MG PO DAILY for SUPPLEMENT , (R eported) Entered as Reported by: AMANDA VALDEZ on 07/20/191908 Last Taken: Unknown Dose on Unknown Date & Time Last Action: HELD on 07/20/192027 by LANEY JIANG Atorvastatin Calcium (Atorvastatin Calcium) 10 Mg Tablet, 10 MG PO HS for FOR CHOLESTEROL, #30 Ref 0 (Reported) Entered as Reported by: AMANDA VALDEZ on 07/20/191903 Last Taken: Unknown Dose on Unknown Date & Time Last Action: Continued on 07/20/192027 by LANEY JIANG Gabapentin (Gabapentin) 300 Mg Capsule, 300 MG PO DAILY for Sciatica for 30 Days, #30 Prescribed by: MIGUEL ANGEL AMBRIZ MD on 07/23/19 154 Prednisone (Prednisone) 20 Mg Tablet, 1 TAB PO DAILY for Sciatica for 5 Days, #5 Prescribed by: MIGUEL ANGEL AMBRIZ MD on 07/23/19 1547 Quetiapine Fumarate (Quetiapine Fumarate) 25 Mg Tablet, 25 MG PO HS for INSOMNIA, (Reported) Entered as Reported by: AMANDA VALDEZ on 07/20/191908 Last Taken: Unknown Dose on Unknown Date & Time Last Action: Continued on 07/20/192027 by LANEY JIANG Tamsulosin Hcl (Flomax) 0.4 Mg Cap.er.24h, 0.4 MG PO QHS for BPH for 30 Days, #30 Prescribed by: MIGUEL ANGEL AMBRIZ MD on 07/23/19 1547 Scheduled PRN Amitriptyline Hcl (Amitriptyline Hcl) 25 Mg Tablet, 1 TAB PO QHS PRN for INSO MNIA, #30 Ref 3 (Reported) Entered as Reported by: SHAYNE BOWERS on 10/24/18 1409 Last Action: Continued on 07/20/192027 by LANEY JIANG Furosemide (Furosemide) 40 Mg Tablet, 1 TAB PO DAILY PRN for swelling for 30 Days, #30 Ref 5 Prescribed by: MIGUEL ANGEL AMBRIZ MD on 04/19/18 1155 Last Taken: Unknown Dose on Unknown Date & Time Last Action: HELD on 07/20/192027 by LANEY JIANG Oxycodone/Apap 10-325 (Percocet 10-325 Mg Tablet ) 1 Each Tablet, 1 TAB PO PRN Q6HRS PRN for pain for 6 Days, #15 Prescribed by: MIGUEL ANGEL AMBRIZ MD on 07/23/19 1549 Potassium Chloride (Potassium Chloride ) 10 Meq Tab.sr.24h, 10 MEQ PO DAILY PRN for take with furosemide for 30 Days, #30 Prescribed by: MIGUEL ANGEL AMBRIZ MD on 04/19/18 1155 Last Taken: Unknown Dose on Unknown Date & Time Last Action: Continued on 07/20/192027 by LANEY JIANG Tizanidine Hcl (Tizanidine Hcl) 4 Mg Tablet, 4 MG PO TID PRN for MUSCLE SPASMS, (Reported) Entered as Reported by: AMANDA VALDEZ on 07/20/19 1909 Last Taken: Unknown Dose on Unknown Date & Time Last Action: Continued on 07/20/192027 by MIGUEL ANGEL DUARTE MD Jul 23, 2019 15:53
[2019-07-23] MEDS: tiZANidine 4 MG TABLET. PO PRN (17:54)
== END 2019-07-23 18:00 | disposition home or self-care (01) | DRG 552 ==
LOC: ER 15:41 → 5 SOUTH 16:52
PROVIDERS: ADMIT Internal Medicine; ATTEND Internal Medicine
DX: M54.42 Lumbago with sciatica, left side (principal); Z68.41 Body mass index [BMI] 40.0-44.9, adult; M48.00 Spinal stenosis, site unspecified; M51.37 Other intervertebral disc degeneration, lumbosacral region; E66.01 Morbid (severe) obesity due to excess calories; F17.210 Nicotine dependence, cigarettes, uncomplicated; I89.0 Lymphedema, not elsewhere classified; N40.1 Benign prostatic hyperplasia with lower urinary tract symptoms; R32 Unspecified urinary incontinence; W07.XXXA Fall from chair, initial encounter; Z82.49 Family history of ischemic heart disease and other diseases of the circulatory system; Z99.3 Dependence on wheelchair; G89.29 Other chronic pain; M19.90 Unspecified osteoarthritis, unspecified site; R39.15 Urgency of urination; R15.9 Full incontinence of feces; W18.39XA Other fall on same level, initial encounter; Y93.89 Activity, other specified; Y92.89 Other specified places as the place of occurrence of the external cause; Y99.8 Other external cause status
CPT/HCPCS: 36415; 70450; 72148; 80053; 82550; 82962; 85025; J1100; J1170; J1650; J1885; J2250; J2704; J2920; J3010; J7030; 97110; 97140; 97530; 97535; G0378

== ENCOUNTER → 2020-02-04 | Outpatient (CLI) | payer MEDICARE ==
[2019-11-01 14:39] VITALS: BP 122/59
[~2020-02-04] MED LIST changes: +ASCO500C PO; +ATOR10TA60 PO; +GABA300C18 PO; +MELO7.5T5 PO; +OXYC1TAB22 PO; +PRED20TA PO; +QUET25TA PO; +TRAZ-118 PO
== END | disposition home or self-care (01) ==
LOC: LAB 13:58
PROVIDERS: ATTEND Internal Medicine Gastroenterology
DX: Z01.812 Encounter for preprocedural laboratory examination (principal); R19.7 Diarrhea, unspecified; Z20.828 Contact with and (suspected) exposure to other viral communicable diseases
CPT/HCPCS: U0003-CS

== ENCOUNTER → 2020-02-07 | Day surgery (SDC) | payer MEDICARE ==
[~2020-02-07] MED LIST changes: +IV RINGERS,LACTATED 1000ML 1,000 ML IV SCH; +PROPOFOL 10 MG/ML (20ML) VIAL. IV ONE
[2020-02-07 08:36] VITALS: BP 111/55
--- NOTE | 2020-02-10 15:08 | PATHOLOGY ---
[facility] Accession Number: [id number] . 01 Material submitted: . colon - RANDOM COLON BX FOR DIARRHEA . 01 Clinical history: . DIARRHEA . 02 Diagnosis: Colonic mucosa, random colon biopsies: - Consistent with microscopic (lymphocytic) colitis. See comment. LBQ 02/10/2020 1225 Local . 02 Comment: Sections of the random colon biopsy reveal multiple segments of colonic mucosa showing a mild chronic active colitis without crypt architectural distortion or collagen deposition. Intraepithelial lymphocytes are increased. These changes are consistent with microscopic (lymphocytic) colitis, however, the diagnosis requires clinicopathologic correlation. Some patients with microscopic colitis also have celiac sprue or sprue-like small bowel changes. (JPM/db; 02/10/2020) . 02 Electronically signed: . Wilver Figueroa MD, Pathologist NPI- [id number] . 01 Gross description: . The specimen is received in formalin, labeled "Wilver Mcclure, random colon BX" and is multiple fragments of pink-hui tissue measuring 1.2 x 0.9 x 0.3 cm in aggregate which are entirely submitted in A1. (SDY; 02/07/2020) SYU/SYU 02/07/2020 1710 Local . 02 Pathologist provided ICD-10: R19.7 . 02 CPT . 406986 Specimen Comment: A courtesy copy of this report has been sent to [phone], [phone] Specimen Comment: [id number] Specimen Comment: Report sent to / DR SAENZ Performed at: 01 [facility] [address], [place], [place] [id number] MD Alexi Maxwell MD Phone: [phone] Performed at: 02 [facility] [address], [place] [id number] MD Wilver Figueroa MD Phone: [phone]
== END | disposition home or self-care (01) ==
LOC: SURG 06:32
PROVIDERS: ATTEND Internal Medicine Gastroenterology
DX: R19.7 Diarrhea, unspecified (principal); K64.0 First degree hemorrhoids; I11.0 Hypertensive heart disease with heart failure; I50.9 Heart failure, unspecified; E78.5 Hyperlipidemia, unspecified; E78.00 Pure hypercholesterolemia, unspecified; M19.90 Unspecified osteoarthritis, unspecified site; Z98.890 Other specified postprocedural states; Z79.899 Other long term (current) drug therapy
CPT/HCPCS: 45380; 88305; J2704